=== PATIENT | female | born 1950 | race Caucasian/White ===

== ENCOUNTER 2017-08-01 10:48 | Outpatient (CLI) | payer MEDICARE | END 2017-08-01 10:49 | disposition home or self-care (01) | PROVIDERS: ATTEND Family Medicine | DX: I69.191 Dysphagia following nontraumatic intracerebral hemorrhage (principal); R13.10 Dysphagia, unspecified | CPT/HCPCS: G8996-GN-CJ; G8997-GN-CI; G8998-GN-CJ ==

== ENCOUNTER 2017-08-17 06:13 | Observation (INO) | payer MEDICARE ==
[2017-08-17 06:37] LABS: #Basophils 0.1 thou/uL (0.0-0.2); #Eosinphils 0.2 thou/uL (0.0-0.7); #Monocytes 1.6 thou/uL (0.11-0.59); #Neutrophils 9.9 thou/uL (1.40-6.50); %Basophils 0.4 % (0.0-1.0); %Eosinophils 1.1 % (0.0-10.0); %Lymphocytes 25.5 % (21.0-51.0); Hemoglobin 10.6 g/dL (12.0-16.0); Mean Corpuscular HGB CONC 32.4 g/dL (32.0-36.0); Mean Corpuscular Volume 89.6 fl (81.0-99.0); Mean Platelet Volume 8.3 fL (7.4-10.4); Platelet Count 252 thou/uL (130-400); RBC Distribution Width 13.5 % (11.5-14.5); Red Blood Cell (RBC) Count 3.65 mill/uL (4.20-5.40); White Blood Cell (WBC) Count 15.6 thou/uL (4.8-10.8)
[2017-08-17] MEDS ORDERED: Pantoprazole 40 MG VIAL ONE (06:52)
[2017-08-17] MEDS ORDERED: Morphine 4 MG/ML VIAL ONE ×2 (06:52→07:32)
[2017-08-17] MEDS ORDERED: Ondansetron ODT 4 MG TAB ONE (06:52)
[2017-08-17 07:22] LABS: CKMB 1.2 ng/mL (0-6.6); Troponin I Less than 0.010 ng/mL (< 0.028)
[2017-08-17] MEDS ORDERED: Piperacillin/Tazobactam 3.375 GM VIAL ONE (07:49)
[2017-08-17 08:36] LABS: ALT (SGPT) 28 U/L (8-55); AST (SGOT) 35 U/L (5-34); Albumin 3.9 g/dL (3.4-4.8); Alkaline Phosphatase 115 U/L (40-150); Anion Gap 17 mmol/L (10-20); BUN (Urea Nitrogen) 20 mg/dL (9.8-20.1); Bilirubin, Total 0.4 mg/dL (0.2-1.2); Calc. Creatinine Clearance 0 mL/min (70-130); Calcium 9.1 mg/dL (7.8-10.44); Carbon Dioxide 21 mmol/L (23-31); Chloride 104 mmol/L (98-107); Estimated GFR-MDRD 42; Glucose 97 mg/dL (80-115); Lipase 14 U/L (8-78); Potassium 4.5 mmol/L (3.5-5.1); Protein, Total 6.9 g/dL (6.0-8.3); Sodium 137 mmol/L (136-145)
[2017-08-17] MEDS ORDERED: Fentanyl 100 MCG/2 ML VIAL ONE ×2 (09:09→13:19)
[2017-08-17 09:59] LABS: Bilirubin Negative (Negative); Blood, Urine Negative (Negative); Clarity CLEAR (Clear); Glucose, Urine (Dipstick) Negative (Negative); Leukocyte Negative (Negative); Nitrite Negative (Negative); Protein, Urine (Dipstick) Negative (Neg-Trace); Specific Gravity, Urine 1.017 (1.002-1.036); Urobilinogen 0.2 mg/dL (0.2-1.0)
[2017-08-17] MEDS ORDERED: Ibuprofen 200 MG TAB ONE (11:12)
--- NOTE | 2017-08-17 12:16 | CT ---
CT OF ABDOMEN AND PELVIS: Date: 08-17-17 Comparison: None. History: Abdominal pain with nausea, right upper quadrant pain. Technique: Serial axial CT imaging at 5 mm intervals from lung bases through pubic symphysis with IV and oral contrast. Coronal reformatted imaging obtained. FINDINGS: There are reticular nodular densities within the imaged superior aspect of the right lower lobe with peripheral areas of consolidative change noted within the right lower lobe and small volume right ple ural fluid. No free intraperitoneal air or fluid. Post-operative hardware is noted within the proximal right femu r. There is mild diffuse intrahepatic biliary dilatation and the common bile duct is dilated, measuring up to 1 cm. However, the patient is status post cholecystectomy. No focal liver lesion. Splenic granu marija are present. There is mild diffuse pancreatic ductal dilatation. Adrenal glands are unremarkable as is the right k idney. The left kidney is markedly atrophic and contains a nonobstructing lower pole stone measuring in the 4-5 mm range. Uterus appears surgically absent. There is no evidence for bowel inflammatory change or bowel obstruc tion. Appendix is not discretely visualized but no right lower quadrant inflammatory change is seen to sugg est the presence of appendicitis. There are scattered atherosclerotic calcifications of the abdominal aorta and its branches. No abdomi nal or pelvic lymphadenopathy. Review of the osseous structures demonstrates diffuse osteopenia. No a cute osseous abnormality is seen. IMPRESSION: 1. Increased density in the right lung base may signify infectious pneumonitis/aspiration. 2. No evidence for free intraperitoneal air or small bowel obstruction. 3. Intra and extrahepatic biliary prominence. This could be related to prior cholecystectomy. Correla tion with LFTs advised to exclude the possibility of a biliary obstructive process. 4. Atrophic left kidney. POS: [facility]
--- NOTE | 2017-08-17 14:14 | ULT ---
ULTRASOUND OF GALLBLADDER RIGHT UPPER QUADRANT: Date: 08/17/17 HISTORY: Pain. COMPARISON: CT same date. TECHNIQUE: Real-time Beltran scale and color Doppler evaluation of the right upper quadrant of the abdomen performe d with spectral analysis. FINDINGS: There is prior cholecystectomy. Visualized portion of the pancreas is unremarkable. Moderate intrahep atic biliary dilatation. Portal vein is patent with antegrade flow. Right kidney measures 9.2 x 4.5 x 4.2 cm. IMPRESSION: 1. Intrahepatic and extrahepatic biliary dilatation. This may be sequelae of distal obstructing proc ess. No choledocholithiasis is seen on this examination. 2. Prior cholecystectomy. POS: [facility]
[2017-08-17] MEDS ORDERED: ISOVUE-370 76%-LOCM 1 ML ONE (14:21)
[2017-08-17] MEDS ORDERED: Iopamidol 370 76% 50 ML VIAL FS ONE (14:21)
[2017-08-17 15:52] VITALS: BMI 19.1
[2017-08-17] MEDS ORDERED: cloNIDine 0.1 MG TAB PO PRN (16:30)
[2017-08-17] MEDS ORDERED: Lidocaine 5% Patch TD ONE (16:35)
--- NOTE | 2017-08-17 16:55 | ULT ---
BILATERAL LOWER EXTREMITY VENOUS DOPPLER WITH SPECTRAL ANALYSIS AND COLOR-FLOW EVALUATION: 08/17/2017 HISTORY: Elevated D-dimer. Possible DVT. FINDINGS: Beltran-scale, color-flow, Doppler evaluation, and spectral analysis of the bilateral lower extremity ve nous structures is performed with 2D imaging. The bilateral lower extremity common femoral, superfic ial femoral, popliteal, posterior tibial, most proximal greater saphenous, and profunda femoral veins are imaged. There is normal lumen compressibility, flow, and augmentation in the visualized deep venous structure s of the bilateral lower extremities. IMPRESSION: No evidence of a deep venous thrombosis involving the visualized deep venous structures of the bilate ral lower extremities. POS: [facility]
[2017-08-17] MEDS: Dextrose 5 % And 0.9 % NaCl 1,000 ML IV SCH (17:08)
--- NOTE | 2017-08-17 17:54 | HP ---
CHIEF COMPLAINT: Abdominal pain. HISTORY OF PRESENT ILLNESS: The patient is a very pleasant 67-year-old female with past medical hist ory of a recent stroke about 5 weeks ago, hypothyroidism, and chronic kidney disease who presented to the hospital from the rehab center with complaints of right-sided abdominal pain. The patient state d that she had some nausea, but no vomiting. The patient also states that she was able to tolerate h er meals well. Denies any diarrhea. Denies any fevers or chills. 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 Patient then underwent an abdominal ultr asound which indicated intrahepatic and extrahepatic biliary dilation with no distal obstructing proc ess. No choledocholithiasis also seen. PAST MEDICAL HISTORY: 1. Recent CVA with right-sided weakness. 2. Hypothyroidism. 3. Chronic kidney disease. 4. Hyponatremia. PAST SURGICAL HISTORY: She had a cholecystectomy, section, history of hysterectomy and righ t femur. She had open reduction and internal fixation of the left olecranon fracture. FAMILY HISTORY: Significant for father for heart disease and CML, and brother for lymphoma. MEDICATIONS: As the followin. She takes Artificial Tears #1 applied to both eyes b.i.d. 2. Aspirin 81 mg daily. 3. Baclofen 1 every 6 hours as needed for leg spasms. 4. Buspirone 30 mg twice a day for anxiety and depression. 5. Clonidine 0.1 mg every 6 hours for blood pressure as needed. 6. DuoNebs. 7. Dexmethylphenidate 5 mg take 1 twice a day. 8. Fluoxetine 20 mg once daily. 9. lamotrigine 100 mg p.o. daily. 8. Levothyroxine 25 mcg daily. 9. Megace 10 mL daily. 10. Melatonin at bedtime. 11. Pantoprazole 1 p.o. daily. 12. Seroquel 200 mg 1 at bedtime. 13. Simethicone 1 daily. 14. Tramadol 50 mg q.6 hours p.r.n. REVIEW OF SYSTEMS: All negative except for the ones mentioned above in the HPI. The following compl ete review of systems was negative, unless otherwise mentioned in the HPI or below: Constitutional: Weight loss or gain, ability to conduct usual activities. Skin: Rash, itching. Eyes: Double vision, pain. ENT/Mouth: Nose bleeding, neck stiffness, pain, tenderness. Cardiovascular: Palpitations, dyspnea on exertion, orthopnea. Respiratory: Shortness of breath, wheezing, cough, hemoptysis, fever or night sweats. Gastrointestinal: Poor appetite, abdominal pain, heartburn, nausea, vomiting, constipation, or diarr hea. Genitourinary: Urgency, frequency, dysuria, nocturia. Musculoskeletal: Pain, swelling. Neurologic/Psychiatric: Anxiety, depression. Allergy/Immunologic: Skin rash, bleeding tendency. SOCIAL HISTORY: The patient currently denies any alcohol use, drug use or smoking. PHYSICAL EXAMINATION: VITAL SIGNS: Temperature of 98.4, 66, 16, and 126/74. GENERAL: She is awake, alert, oriented x3. Patient appears to be malnourished and appears much more older than her stated age. CARDIOVASCULAR: S1 and S2 present. No murmurs, rubs or gallops. ABDOMEN: Soft. Bowel sounds are present. She has got severe pain on palpation of epigastric, right upper quadrant, and then right underneath her breast around her rib area. Significant pain on palpa tion. No pain on the back or flank area. No lesions noted either. EXTREMITIES: No edema. Pedal pulses present x2. NEUROLOGIC: She does have weakness on the right side. LABORATORY DATA: Are as the following; she has white count 15.6, hemoglobin of 10.6, hematocrit of 3 2.7, and platelets of 252. Chemistry: Sodium of 137, potassium of 4.5, BUN of 20, creatinine of 1.2 8, AST is 35 one point over cutoff, which is 34, ALT is 28, alkaline phosphatase is 115, her CRP is 1 0.7. Troponin x1 is negative. Her lipase is 14. ASSESSMENT AND PLAN: The patient is a very pleasant 67-year-old female who presents to the hospital with complaints of right upper quadrant pain. 1. Right upper quadrant pain. Etiology could be secondary to musculoskeletal versus hepatic related versus possible zoster versus gastritis. I did not appreciate any lesions or redness noted around h er right breast area or right underneath the rib area. Also, patient's ultrasound did indicate bilat eral intrahepatic and extrahepatic duct dilation; however, no stones were noted and she is status pos t cholecystectomy. Also, her alkaline phosphatase is completely normal. She does have severe pain o n palpation around her right last two ribs. This could be musculoskeletal; however, she denies any f all or any recent injuries. We will apply topical Lidoderm and also give her some pain medication. We will also start her on Protonix IV b.i.d. This could be gastritis. Unlikely to be pancreatitis b ecause lipase is completely normal. I did check lipase and her lipase was mildly elevated at 0.53. This pain does not appear to be pleuritic it since it is reproducible on palpation. 2. Recent stroke. We will continue patient's aspirin and statin. 3. Mildly elevated leukocytosis. We will continue to watch for now. CT abdomen and pelvis did sailaja tito some mild consolidation on the right lower quadrant, which we will just continue to watch. She has no cough, no fevers, no chills. 4. Deep venous thrombosis prophylaxis. We will put the patient on subcu heparin.
[2017-08-17] MEDS: traMADol HCl 50 MG TAB PO PRN (18:32)
[2017-08-17] MEDS: Pantoprazole 40 MG VIAL IVP SCH (20:23)
[2017-08-17] MEDS: busPIRone HCl 5 MG TAB PO SCH (20:24)
[2017-08-17] MEDS: Docusate 100 MG CAP PO SCH (20:24)
[2017-08-17] MEDS ORDERED: Sodium Bicarbonate Tab 325 MG TAB PO SCH (21:00)
[2017-08-17] MEDS ORDERED: Melatonin 3 MG TAB PO SCH (21:00)
[2017-08-17] MEDS ORDERED: Non-Formulary Item 1 EACH (Melatonin [Melatonin] 5 MG) PO SCH (21:00)
[2017-08-17] MEDS ORDERED: Simvastatin 5 MG TAB PO SCH (21:00)
[2017-08-17] MEDS ORDERED: lamoTRIgine 100 MG TAB PO SCH (21:00)
[2017-08-17] MEDS ORDERED: Pravastatin Sodium 20 MG TAB PO SCH (21:00)
[2017-08-18] MEDS: traMADol HCl 50 MG TAB PO PRN ×3 (01:09→15:18)
[2017-08-18] MEDS: Acetaminophen 325 MG TAB PO PRN ×2 (01:10→15:19)
[2017-08-18] MEDS: Dextrose 5 % And 0.9 % NaCl 1,000 ML IV SCH (05:55)
[2017-08-18] MEDS ORDERED: Levothyroxine Sodium 25 MCG TAB PO SCH (06:00)
[2017-08-18 06:28] LABS: #Eosinphils 0.2 thou/uL (0.0-0.7); #Lymphocytes 2.4 thou/uL (1.20-3.40); #Monocytes 0.8 thou/uL (0.11-0.59); #Neutrophils 6.3 thou/uL (1.40-6.50); %Basophils 0.4 % (0.0-1.0); %Lymphocytes 24.5 % (21.0-51.0); %Monocytes 8.4 % (0.0-10.0); %Neutrophils 64.7 % (42.0-75.0); Hemoglobin 9.4 g/dL (12.0-16.0); Mean Corpuscular HGB CONC 32.9 g/dL (32.0-36.0); Mean Corpuscular Hemoglobin 29.8 pg (27.0-31.0); Mean Corpuscular Volume 90.7 fl (81.0-99.0); Mean Platelet Volume 8.6 fL (7.4-10.4); Platelet Count 191 thou/uL (130-400); RBC Distribution Width 13.4 % (11.5-14.5); Red Blood Cell (RBC) Count 3.16 mill/uL (4.20-5.40); White Blood Cell (WBC) Count 9.8 thou/uL (4.8-10.8)
[2017-08-18 06:36] LABS: Anion Gap 9 mmol/L (10-20); BUN (Urea Nitrogen) 17 mg/dL (9.8-20.1); Calc. Creatinine Clearance 38 mL/min (70-130); Calcium 8.9 mg/dL (7.8-10.44); Carbon Dioxide 20 mmol/L (23-31); Chloride 115 mmol/L (98-107); Estimated GFR-MDRD 49; Glucose 99 mg/dL (80-115); Potassium 4.6 mmol/L (3.5-5.1); Sodium 139 mmol/L (136-145)
[2017-08-18 06:37] LABS: ALT (SGPT) 34 U/L (8-55); AST (SGOT) 33 U/L (5-34); Albumin 2.9 g/dL (3.4-4.8); Alkaline Phosphatase 111 U/L (40-150); Bilirubin, Direct 0.3 mg/dL (0.1-0.3); Bilirubin, Total 0.6 mg/dL (0.2-1.2); Protein, Total 5.3 g/dL (6.0-8.3)
[2017-08-18 07:46] LABS: CKMB 2.1 ng/mL (0-6.6); Troponin I 0.013 ng/mL (< 0.028)
[2017-08-18] MEDS: Docusate 100 MG CAP PO SCH (08:51)
[2017-08-18] MEDS: busPIRone HCl 5 MG TAB PO SCH (08:51)
[2017-08-18] MEDS: Pantoprazole 40 MG VIAL IVP SCH (08:52)
[2017-08-18] MEDS ORDERED: Lidocaine 5% Patch TD SCH (09:00)
[2017-08-18] MEDS ORDERED: Aspirin 81 mg Enteric Coated Tablet PO SCH (09:00)
[2017-08-18] MEDS ORDERED: FLUoxetine HCl 20 MG CAP PO SCH (09:00)
--- NOTE | 2017-08-18 13:28 | NM ---
VQ SCAN: HISTORY: Pleuritic chest pain. TECHNIQUE: A ventilation perfusion scan was performed using 10.3 mCi Xenon 133 by inhalation for the ventilation study followed by the intravenous administration of 6 mCi Technetium 99m-MAA for the perfusion scan. FINDINGS: Correlation is made with the chest radiograph of 06/24/17. There is fairly homogeneous tracer distribution on the ventilation exam. Perfusion scan demonstrates a subsegmental wedge-shaped pleural-based defect involving the anterior basal segment of the right l ower lobe. IMPRESSION: Intermediate probability for pulmonary embolism. POS: [facility]
[2017-08-18 16:27] VITALS: BP 127/62; TEMP 98.2
--- NOTE | 2017-08-18 20:51 | DIS ---
DATE OF ADMISSION: 08/17/2017 DATE OF DISCHARGE: 08/18/2017 CHIEF COMPLAINT: Right upper quadrant pain. HOSPITAL COURSE: Patient is a very pleasant 67-year-old female with history of a recent stroke who p resents to the hospital from rehab for complaints of right upper quadrant pain. The patient initiall y was evaluated in the ER, underwent a CT abdomen and pelvis, and a right upper quadrant ultrasound w hich indicated moderate intra/extrahepatic duct dilation. Patient is status post cholecystectomy. T he patient's LFTs were completely normal. Patient did not have a chest x-ray. The patient's CT abdo men and pelvis, lower cuts window of the right lung indicated some scarring on the right lower bases. Patient on physical examination did not have any ulcerations or any blisters that were noted. The patient's troponins also were checked which was negative. EKG, no acute significant changes. She di d have a D-dimer check which was mildly elevated at 0.54. The patient then underwent a VQ scan which indicated an intermediate probability of PE. Patient also had lower extremity ultrasounds which wer e negative for any DVT. I spoke with the patient in details about the findings of the VQ scan and also with a mildly elevated D-dimer for possibility of PE. The patient does have a history of chronic kidney disease and mayur ybarra has a history of chronic kidney disease and unable to do was a CTA to rule out a PE. However, the probability of PE is low. Patient does have scarring in her right lower bases which also indicates t he deficit in subsegmental wedge-shaped pleural base involving the anterior basal segment of the righ t lower lobe. Patient does not have any hypoxia and is not short of breath. The patient does have a right upper quadrant pain. Upon further talking with the patient, the patient states that she has h ad this pain prior to her stroke before in the past and a few times at the rehab center. Most likely , this pain is musculoskeletal related versus irritation of the pleura from this subsegmental defect noted in the bases of the right lower lobe. The patient gave options to the patient in regards to po ssible doing a CTA; however, the risk of worsening kidney injury, also putting on oral anticoagulatio n with the risk of bleeding with not an appropriate diagnosis for PE versus just watching it. Mayur ybarra stated that she would go with no treatment. However, if her symptoms worsen, she was advised to co me into the hospital for further evaluation. I did discuss to the patient that if there was a PE, th ere were risks of hypoxia and also . Patient does understand and the patient feels that most li sai this is just musculoskeletal in nature and also based on clinically on very moderate probability , PE is too unlikely. We will discharge the patient back to her rehabilitation center. PHYSICAL EXAMINATION: VITAL SIGNS: Temperature of 97.6, 68, 115/55, 16, 94% on room air. GENERAL: She is awake, alert, oriented x3. She is not in apparent distress. CARDIOVASCULAR SYSTEM: S1, S2 present. No murmurs, rubs or gallops. ABDOMEN: Soft. Mild tenderness on her right upper quadrant, more around the rib. The patient state s that some better with tramadol x2. She does have right-sided weakness. DISCHARGE MEDICATIONS: Tums 2 tabs p.o. q.6 h. p.r.n., Tramadol 50-100 mg q6 hours p.r.n., simethico ne 80 mg p.o. q.6 hours p.r.n., Megace 40 mg p.o. daily, clonidine 0.1 q.6 hours p.r.n., baclofen 10 mg p.o. q.6 h. p.r.n., aspirin 81 mg daily, levofloxacin 25 mcg p.o. daily, Seroquel 200 mg p.o. at b edtime, lamotrigine 100 mg p.o. at bedtime, buspirone 30 mg p.o. b.i.d., Protonix 40 mg daily, and at orvastatin 40 mg p.o. daily.
[2017-08-18] MEDS ORDERED: Lidocaine Patch Removal 1 EACH TOP SCH (21:00)
== END 2017-08-18 16:20 ==
LOC: ERS 06:13 → 2SW 14:23
PROVIDERS: ADMIT Internal Medicine; ATTEND Internal Medicine
DX: R10.11 Right upper quadrant pain (principal); I69.351 Hemiplegia and hemiparesis following cerebral infarction affecting right dominant side; E03.9 Hypothyroidism, unspecified; N18.9 Chronic kidney disease, unspecified; E87.1 Hypo-osmolality and hyponatremia; D72.829 Elevated white blood cell count, unspecified; Z79.82 Long term (current) use of aspirin; Z79.899 Other long term (current) drug therapy; Z98.891 History of uterine scar from previous surgery; Z90.49 Acquired absence of other specified parts of digestive tract; Z90.710 Acquired absence of both cervix and uterus; Z98.890 Other specified postprocedural states
CPT/HCPCS: 74177; 76705; 78582; 80048; 80053; 80076; 81003; 82553 ×2; 83605; 83690; 84484 ×2; 85025 ×2; 85379; 85652; 86140; 86850; 86900; 86901; 87040; 87086; 87149 ×2; 93005; 93970; 96361 ×3; 96365; 96374; 96375 ×2; 96376 ×2; 97139 ×3; 99285; A9540; A9558; G0378; 36415; A4216; C9113; G8996-GN-CK; G8997-GN-CI; J2270; J2543; J3010; Q0162

== ENCOUNTER 2017-10-02 12:06 | Day surgery (SDC) | payer MEDICARE ==
[2017-10-02] MEDS ORDERED: PROPOFOL 200 MG/20 ML VIAL ONE (15:17)
--- NOTE | 2017-10-02 15:50 | OP ---
DATE OF PROCEDURE: 10/02/2017 PROCEDURE: Esophagogastroduodenoscopy with balloon dilation of proximal esophageal stricture and biopsy. PREPROCEDURE DIAGNOSES: 1. Dysphagia. 2. Weight loss. 3. History of proximal esophageal stricture. 4. Abnormal barium swallow. 5. History of a recent stroke 2 months ago. POSTPROCEDURE DIAGNOSES: 1. Exam to second portion of duodenum. 2. Tight proximal esophageal stricture at 15 cm from the incisors, unable to pass scope through this point without dilating first. 3. s/p 8, 9 then 10 mm TTS balloon dilation of esophageal stricture with good post dilation result and resolution of stricture. 4. Nonobstructing distal Schatzki ring. 5. Small one cm hiatal hernia. 6. Mild gastric antral erythema (striped) without ulcer. 7. Normal duodenum. PROCEDURE IN DETAIL: Written informed consent was obtained. The patient was brought to the endoscopy suite. Total intravenous anesthesia was provided by Dr. Akhil Kelly and associates. The patient was placed in the left lateral decubitus position. A bite block was inserted into the mouth. A Pentax video diagnostic gastroscope was introduced into the oral cavity and the esophagus was carefully intubated. Just distal to the upper esophageal sphincter, a luminal narrowing was encountered and the endoscope could not be passed safely without performing dilation first. Using 10 mm TTS balloon, the stricture was gradually dilated at 3 different stages corresponding to 8 mm, 9 mm and 10 mm. Following the third stage, the stricture appeared to have broken and the endoscope was carefully advanced into the duodenum. Endoscopic findings revealed a 1 cm sliding hiatal hernia. There was no evidence of esophageal ulcer or mass. The stomach from the cardia to the pylorus showed mild striped antral erythema, but no ulcer. The retroflexed exam was normal. The duodenum from the bulb to the second portion was then inspected and appeared grossly normal. Biopsies were obtained in the lower esophagus at 35 cm for histology. Additional biopsies were obtained at 15 cm where the stricture was dilated. A small divot and the mucosa appeared post-biopsy, thus the decision was made to obtain a Gastrografin swallow immediately following completion of the EGD. There was no obvious tear. The stomach and esophagus were decompressed as the endoscope was completely removed from the patient. She was transferred to the day stay surgery area for post-procedure monitoring. There were no immediate complications. RECOMMENDATIONS: 1. Await biopsy results. 2. Ask the patient to contact me in 1 week for biopsy results. 3. Obtain Gastrografin swallow in radiology today before discharge home. ( Post EGD Gastrografin swallow showed no contrast extravasation and esophagus appeared patent without obvious narrowing). 4. Resume diet, but focus on liquids, thick liquids, and soft foods for the next 3 days. 5. Continue pantoprazole daily. 6. Follow up in my office in 2-3 weeks. MTDD
--- NOTE | 2017-10-02 16:03 | RAD ---
ESOPHAGRAM: HISTORY: Esophageal stricture with dilatation. FINDINGS: Single-column contrast evaluation shows normal anatomic appearance of the esophagus without evidence of obstruction or leak. Fluoro-time=0.6 minutes. POS: [facility]
[2017-10-02] MEDS ORDERED: GASTROGRAFIN 30 ML BOT ONE (16:27)
== END 2017-10-02 16:43 | disposition home or self-care (01) ==
LOC: SDC 12:06
PROVIDERS: ATTEND Internal Medicine Gastroenterology
PROC: 0DB58ZX Excision of Esophagus, Via Natural or Artificial Opening Endoscopic, Diagnostic (ICD-10-PCS; principal; 2017-10-02)
PROC: 0DB38ZX Excision of Lower Esophagus, Via Natural or Artificial Opening Endoscopic, Diagnostic (ICD-10-PCS; 2017-10-02)
PROC: 0D758ZZ Dilation of Esophagus, Via Natural or Artificial Opening Endoscopic (ICD-10-PCS; 2017-10-02)
DX: K22.2 Esophageal obstruction (principal); B37.81 Candidal esophagitis; K44.9 Diaphragmatic hernia without obstruction or gangrene; K21.9 Gastro-esophageal reflux disease without esophagitis; K59.00 Constipation, unspecified; Z88.8 Allergy status to other drugs, medicaments and biological substances; Z87.891 Personal history of nicotine dependence; Z79.82 Long term (current) use of aspirin; Z79.899 Other long term (current) drug therapy; Z86.73 Personal history of transient ischemic attack (TIA), and cerebral infarction without residual deficits
CPT/HCPCS: 74220; 88305; 88312; 88313; J2704

== ENCOUNTER 2018-04-27 05:27 | Emergency (ER) | payer MEDICARE, OTHER ==
[2018-04-27] MEDS ORDERED: HYDROcodone/Acetaminophen 10/325 mg Tablet ONE (06:17)
[2018-04-27 06:57] LABS: #Lymphocytes 1.2 thou/uL (1.20-3.40); #Monocytes 0.8 thou/uL (0.11-0.59); #Neutrophils 7.1 thou/uL (1.40-6.50); %Eosinophils 0.5 % (0.0-10.0); %Lymphocytes 12.7 % (21.0-51.0); %Monocytes 8.8 % (0.0-10.0); Hemoglobin 12.4 g/dL (12.0-16.0); Mean Corpuscular HGB CONC 33.5 g/dL (32.0-36.0); Mean Corpuscular Hemoglobin 31.2 pg (27.0-31.0); Mean Corpuscular Volume 93.1 fL (78.0-98.0); Mean Platelet Volume 9.3 fL (7.4-10.4); Platelet Count 126 thou/uL (130-400); Red Blood Cell (RBC) Count 3.97 mill/uL (4.20-5.40); White Blood Cell (WBC) Count 9.1 thou/uL (4.8-10.8)
[2018-04-27 07:24] LABS: ALT (SGPT) 26 U/L (8-55); AST (SGOT) 40 U/L (5-34); Alkaline Phosphatase 114 U/L (40-150); Anion Gap 14 mmol/L (10-20); BUN (Urea Nitrogen) 18 mg/dL (9.8-20.1); Bilirubin, Total 0.4 mg/dL (0.2-1.2); CK (CPK) 64 U/L (29-168); Calc. Creatinine Clearance 0 mL/min (70-130); Calcium 9.3 mg/dL (7.8-10.44); Carbon Dioxide 25 mmol/L (23-31); Chloride 105 mmol/L (98-107); Estimated GFR-MDRD 37; Globulin 2.9 g/dL (2.4-3.5); Glucose 120 mg/dL (80-115); Lipase 12 U/L (8-78); Protein, Total 6.9 g/dL (6.0-8.3); Sodium 140 mmol/L (136-145)
[2018-04-27 09:02] LABS: Bilirubin Negative (Negative); Blood, Urine Negative (Negative); Clarity CLEAR (Clear); Glucose, Urine (Dipstick) Negative (Negative); Leukocyte Negative (Negative); Nitrite Negative (Negative); Protein, Urine (Dipstick) Negative (Neg-Trace); Specific Gravity, Urine 1.011 (1.002-1.036); Urobilinogen 0.2 mg/dL (0.2-1.0); pH, Urine 7.5 (5.0-9.0)
--- NOTE | 2018-04-27 09:38 | RAD ---
RIGHT HIP 2 VIEWS: HISTORY: Trauma. Fall. Pain. COMPARISON: 08/28/2017. FINDINGS: Uncomplicated internal fixation hardware. No acute fracture. There is diffuse bone demineralization . IMPRESSION: No fracture. POS: [facility]
--- NOTE | 2018-04-27 09:56 | RAD ---
LUMBAR SPINE RADIOGRAPHS 3 VIEWS: DATE: 04/27/2018. PROVIDED CLINICAL HISTORY: Trauma. FINDINGS: Five [id number] lumbar-type vertebral bodies are present. Lumbar alignment appears normal. Lum bar vertebral body heights appear preserved. Pedicles appear intact. Cholecystectomy clips right up per quadrant. Vascular calcification. IMPRESSION: No radiographic evidence for an acute osseous abnormality. If there is persistent clinical concern, conservative management and followup imaging advised. POS: [facility]
--- NOTE | 2018-04-27 09:58 | RAD ---
PORTABLE CHEST: Date: 04-27-18 Provided Clinical History: Fall. FINDINGS: Comparison 06-24-17. The cardiac and mediastinal silhouette is within normal limits. No focal consolidation, pleural fluid , or pneumothorax apparent. The bony thorax appears grossly intact. Evaluation for pleural fluid or p neumothorax is limited due to the supine nature of the study. IMPRESSION: As above. POS: [facility]
== END 2018-04-27 09:59 ==
LOC: ERS 05:27
DX: S39.012A Strain of muscle, fascia and tendon of lower back, initial encounter (principal); S70.01XA Contusion of right hip, initial encounter; F41.9 Anxiety disorder, unspecified; F32.9 Major depressive disorder, single episode, unspecified; E03.9 Hypothyroidism, unspecified; Z79.899 Other long term (current) drug therapy; Z79.82 Long term (current) use of aspirin; W19.XXXA Unspecified fall, initial encounter
CPT/HCPCS: 36415; 51701; 71045; 72100; 80053; 81003; 82550; 83690; 83880; 84484; 85025; 93005; A4353

== ENCOUNTER 2018-05-29 08:31 | Inpatient (IN) | payer MEDICARE, MEDICAID ==
[2018-05-29 10:04] LABS: Bilirubin Negative (Negative); Blood, Urine Negative (Negative); Clarity CLEAR (Clear); Glucose, Urine (Dipstick) Negative (Negative); Leukocyte Trace (Negative); Nitrite Negative (Negative); Protein, Urine (Dipstick) Trace mg/dL (Neg-Trace); Specific Gravity, Urine 1.018 (1.002-1.036); pH, Urine 7.5 (5.0-9.0)
[2018-05-29 10:10] LABS: Bacteria/HPF None Seen HPF (None Seen); Hyaline Casts/LPF 0-3 HYALINE CAST LPF (0-3 Hyaline); RBC/HPF 0-3 HPF (0-3); Squamous Epithelial 0-3 HPF (0-3); WBC/HPF 0-3 HPF (0-3)
[2018-05-29 10:34] LABS: #Eosinphils 0.2 thou/uL (0.0-0.7); #Lymphocytes 2.2 thou/uL (1.20-3.40); #Monocytes 1.4 thou/uL (0.11-0.59); #Neutrophils 6.9 thou/uL (1.40-6.50); %Basophils 0.4 % (0.0-1.0); %Eosinophils 1.8 % (0.0-10.0); %Lymphocytes 20.5 % (21.0-51.0); %Monocytes 13.2 % (0.0-10.0); %Neutrophils 64.2 % (42.0-75.0); Hemoglobin 10.8 g/dL (12.0-16.0); Mean Corpuscular Hemoglobin 31.3 pg (27.0-31.0); Mean Corpuscular Volume 94.8 fL (78.0-98.0); Mean Platelet Volume 10.7 fL (7.4-10.4); Platelet Count 174 thou/uL (130-400); RBC Distribution Width 12.8 % (11.5-14.5); Red Blood Cell (RBC) Count 3.46 mill/uL (4.20-5.40); White Blood Cell (WBC) Count 10.7 thou/uL (4.8-10.8)
[2018-05-29] MEDS ORDERED: Acetaminophen 500 MG TAB ONE (10:59)
[2018-05-29 11:01] LABS: ALT (SGPT) 20 U/L (8-55); AST (SGOT) 30 U/L (5-34); Albumin 3.5 g/dL (3.4-4.8); Alkaline Phosphatase 153 U/L (40-150); Anion Gap 18 mmol/L (10-20); BUN (Urea Nitrogen) 32 mg/dL (9.8-20.1); Bilirubin, Total 0.7 mg/dL (0.2-1.2); Calc. Creatinine Clearance 0 mL/min (70-130); Calcium 9.4 mg/dL (7.8-10.44); Carbon Dioxide 18 mmol/L (23-31); Chloride 106 mmol/L (98-107); Estimated GFR-MDRD 34; Globulin 3.2 g/dL (2.4-3.5); Glucose 79 mg/dL (80-115); Potassium 4.5 mmol/L (3.5-5.1); Protein, Total 6.7 g/dL (6.0-8.3); Sodium 137 mmol/L (136-145)
--- NOTE | 2018-05-29 12:16 | CT ---
HEAD CT WITHOUT CONTRAST: Date: 05/29/18 COMPARISON: 12/14/16. HISTORY: Trauma. Patient fell out of bed. Post-traumatic pain. FINDINGS: No parenchymal hemorrhage. No extra-axial hematoma. No midline shift. Basilar cisterns are patent. Br ain volume, age-appropriate. Cortical aragon-white matter differentiation preserved. Ventricles and sul ci are patent and symmetric. Remote lacunar infarcts in the left and right thalamus. Calvarium is intact. Adequate aeration of the sinuses and mastoid air cells. IMPRESSION: No intracranial post-traumatic sequelae. POS: [facility]
--- NOTE | 2018-05-29 12:19 | CT ---
CT OF CERVICAL SPINE PERFORMED WITHOUT CONTRAST ENHANCEMENT: Date: 05/29/18 HISTORY: Fall with neck pain. FINDINGS: Vertebral bodies are normal in height. There is fairly pronounced degenerative disc narrowing at C3-4 , C4-5, C5-6, and C6-7. The facets are in normal alignment. There is some mild right-sided foraminal narrowing at C4-5. There is moderate right-sided foraminal narrowing at C4-5. Also with moderate degr ee of canal narrowing. There is a moderately severe degree of canal narrowing related to posterior os teophytic change. There is a moderate degree of canal stenosis at C5-6 with mild bilateral foraminal narrowing. There is no CT evidence of fracture. Lung apices are clear. IMPRESSION: No CT evidence of fracture of the cervical spine. POS: [facility]
--- NOTE | 2018-05-29 12:21 | CT ---
CT CHEST WITH IV CONTRAST CT ABDOMEN AND PELVIS WITH IV CONTRAST CT THORACIC SPINE NONCONTRAST CT LUMBAR SPINE NONCONTRAST: Date: 05/29/18 HISTORY: Fall. Chest injury. Abdomen injury. Back injury. FINDINGS: No evidence of pneumothorax or mediastinal hematoma. Fairly prominent patchy areas of parenchymal inf iltrate are present within each upper and lower lobe. Atelectasis at the lung bases. Gallbladder is surgically absent with associated distention of the biliary system. There is atrophy o f the left kidney with a 0.4 cm calculus at the inferior pole. No hydronephrosis. Calcification withi n the arterial structures. Urinary bladder is unremarkable. Compression of the T12 superior end plate with loss of height by approximately 10%. Minimal retropuls ion. Other vertebral body heights and alignment are maintained. IMPRESSION: 1. Mildly compressed T12 superior end plate compression fracture. Favored to be acute. 2. No other acute traumatic injury is apparent. POS: [facility]
[2018-05-29] MEDS ORDERED: Ondansetron ODT 4 MG TAB SL PRN (13:00)
[2018-05-29] MEDS ORDERED: Acetaminophen 325 MG TAB PO PRN (13:00)
[2018-05-29] MEDS ORDERED: Ondansetron PF 4 MG/2 ML Vial IVP PRN ×2 (13:00→16:40)
[2018-05-29] MEDS ORDERED: Sodium Chloride 0.9% 1,000 ML IV SCH (13:00)
[2018-05-29] MEDS ORDERED: Sodium Chloride 0.9% 100 ML ONE (13:03)
[2018-05-29] MEDS ORDERED: Piperacillin/Tazobactam 3.375 GM VIAL ONE (13:03)
[2018-05-29] MEDS ORDERED: ISOVUE-370 76%-LOCM 1 ML ONE (14:48)
[2018-05-29] MEDS: HYDROcodone/Acetaminophen 5/325 mg Tablet PO PRN ×2 (17:27→21:23)
[2018-05-29] MEDS: Sodium Chloride 0.9% 1,000 ML IV SCH (17:27)
--- NOTE | 2018-05-29 18:25 | HP ---
CHIEF COMPLAINT: Bilateral hip and leg pain after a fall. HISTORY OF PRESENT ILLNESS: The patient is a 68-year-old female, retirement resident since after lower extremity fracture, who at baseline is wheelchair bound, brought in from the retirement after she was found on the floor. The patient reported that she fell around 2:00 a.m. and has been on the floor. She was seen this morning, hence was brought to the hospital. She complaints of bilateral leg and hip pain as well as mild chest pain. The patient with prior history of CVA as well as dysphagia, for which she has had dilatation of the esophagus, reports chronic cough with little or no sputum production, which has not changed and also denied shortness of breath, fever, nausea, or vomiting. On presentation, the patient was saturating well on room air. Evaluation with CT scan of the chest, abdomen, and pelvis as well as C-spine and thoracic spine showed bilateral infiltrate suggestive of pneumonia, hence the patient was started on antibiotics and admitted for further treatment. The patient reported that her legs gave out when she tried to stand, hence she fell. She denied dysuria, hematuria, nausea, vomiting, headache, change in mental status, abdominal distention, leg swelling, fever, chills, or rigor. She continued to complain about musculoskeletal pain, which she rates about 5 to 7/10 in severity. PAST MEDICAL HISTORY: 1. CVA with gait instability. 2. Hypothyroidism. 3. Chronic kidney disease. 4. Dysphagia. 5. Gastroesophageal reflux disease. 6. Anxiety and depression. PAST SURGICAL HISTORY: 1. Cholecystectomy. 2. section. 3. Hysterectomy. 4. Open reduction and internal fixation of right femur. 5. Open reduction and internal fixation of left olecranon fracture. FAMILY HISTORY: Significant for heart disease and CML in father. Brother also had lymphoma. HOME MEDICATIONS: This include the following; 1. Aspirin 81 mg daily. 2. Baclofen 1 tablet 6 hours as needed for spasm. 3. Buspirone 30 mg twice a day for anxiety and depression. 4. Dexmethylphenidate 5 mg b.i.d. 5. Fluoxetine 40 mg daily. 6. Lamotrigine 100 mg daily. 7. Levothyroxine 25 mcg daily. 8. Melatonin at bedtime. 9. Protonix 1 tablet daily. 10. Seroquel 200 mg at bedtime. 11. Simethicone as needed. 12. Tramadol 50 mg every 6 hours p.r.n. ALLERGIES: THE PATIENT REPORTS INTOLERANCE TO SEPTRA. SOCIAL HISTORY: The patient currently lives in a retirement since her recent CVA. She denied alcohol, recreational drug use or smoking. REVIEW OF SYSTEMS: Twelve-point review of system performed was negative, other than pertinent positives and negatives included in the history of present illness. PHYSICAL EXAMINATION: VITAL SIGNS: On presentation to the emergency room, blood pressure was 95/56 with pulse 71, respiratory rate 18, temperature 99.1, and SpO2 of 93% on room air. GENERAL: Elderly female, in no obvious distress. Afebrile, anicteric, acyanotic. HEENT: Normocephalic, atraumatic. Pupils are equal and reactive to light. Oral mucosa is moist. NECK: Supple, nontender with good range of motion. CARDIOVASCULAR: Regular rhythm and rate with normal sounds 1 and 2. RESPIRATORY: Fair air entry bilateral with few transmitted sounds. No obvious crackle or rhonchi was appreciated. There was no use of accessory muscles. ABDOMEN: Full, soft, nontender, nondistended with normal bowel sounds. EXTREMITIES: Some atrophy of the thigh noted. The patient, however, is able to move all extremities. There is no edema, erythema, or cyanosis. SKIN: Grossly unremarkable. No rash or ecchymosis noted. NEUROLOGY: Conscious and alert, oriented x3 with appropriate mental status. Cranial nerves II through XII are intact. Power is about 4 bilaterally. PSYCHIATRIC: The patient is anxious. DIAGNOSTIC DATA: CBC showed WBC count of 10.7, hemoglobin of 10.8, and platelet of 174. CMP showed sodium 137, potassium 4.5, chloride 106, BUN 32, creatinine 1.5, glucose 79, alkaline phosphatase 153, and total protein 6.7. Of note, creatinine was 1.42 on May 12, 2018 and baseline creatinine ranges from 1.1 to 1.6 in the last 2 years. EKG showed normal sinus rhythm with no ischemic changes. Cardiac enzymes; troponin was less than 0.01, CK is 64, CK-MB is 2.1. Lactic acid is 0.6. CT scan of the abdomen, pelvis as well as chest with contrast showed prominent patchy areas of parenchymal infiltrate within its upper and lower lobes as well as atelectasis of the lung base. No evidence of pneumothorax or mediastinal hematoma was noted. Mild compressed T12 superior end-plate compression fracture noted, this is thought to favor acute pathology. CT scan of the brain showed no acute intracranial pathology. CT scan of the spine showed fairly prolonged degenerative disk narrowing at C3-C4, C4-C5, C5-C6, and C6-C7. However, the facets are normal in alignment, but there was no evidence of fracture of the cervical spine. ASSESSMENT: 1. Bilateral patchy infiltrates involving both lungs. Pneumonia is a concern. Given history of dysphagia, aspiration pneumonia is possible despite no change in chronic cough. There is no overt evidence of sepsis or hypoxia. 2. Fall, mechanical due to weakness of both lower extremities. The patient had chronic lower extremity weakness and is wheelchair bound at baseline. 3. Dysphagia, status post endoscopic dilatation. 4. Anxiety and depression. 5. Chronic kidney disease with possible reversible component. 6. Acute traumatic pain involving both hips. PLAN: 1. We will start antibiotic therapy with Levaquin and Flagyl for possible aspiration pneumonia. The patient also was from a retirement. 2. We will start the patient on IV fluid and monitor renal function. 3. Narcotic analgesics as needed will be provided. We will continue the patient's home medications including aspirin, Protonix, and anti-anxiety and depression medications. 4. DVT prophylaxis with Lovenox. 5. Code status: Full. 6. We will also get Speech Therapy to evaluate the patient's swallowing. 7. We will also get PT and OT to start strengthening exercises to help the patient with transfers. Job ID: [id number]
[2018-05-29] MEDS: lamoTRIgine 100 MG TAB PO SCH (21:21)
[2018-05-29] MEDS: Melatonin 3 MG TAB PO SCH (21:22)
[2018-05-29] MEDS: Simvastatin 20 MG TAB PO SCH (21:23)
[2018-05-30] MEDS: Sodium Chloride 0.9% 1,000 ML IV SCH (06:31)
[2018-05-30] MEDS: HYDROcodone/Acetaminophen 5/325 mg Tablet PO PRN ×5 (06:31→23:33)
[2018-05-30] MEDS: Levothyroxine Sodium 25 MCG TAB PO SCH (06:31)
[2018-05-30 06:52] LABS: Anion Gap 14 mmol/L (10-20); BUN (Urea Nitrogen) 21 mg/dL (9.8-20.1); Calc. Creatinine Clearance 30 mL/min (70-130); Calcium 8.5 mg/dL (7.8-10.44); Carbon Dioxide 18 mmol/L (23-31); Chloride 112 mmol/L (98-107); Estimated GFR-MDRD 35; Glucose 71 mg/dL (80-115); Potassium 4.5 mmol/L (3.5-5.1); Sodium 139 mmol/L (136-145)
[2018-05-30 08:26] LABS: #Eosinphils 0.2 thou/uL (0.0-0.7); #Lymphocytes 1.8 thou/uL (1.20-3.40); #Monocytes 1.1 thou/uL (0.11-0.59); #Neutrophils 5.4 thou/uL (1.40-6.50); %Basophils 0.5 % (0.0-1.0); %Eosinophils 2.8 % (0.0-10.0); %Lymphocytes 21.1 % (21.0-51.0); %Monocytes 12.7 % (0.0-10.0); %Neutrophils 62.9 % (42.0-75.0); Hemoglobin 9.8 g/dL (12.0-16.0); Mean Corpuscular HGB CONC 32.1 g/dL (32.0-36.0); Mean Corpuscular Hemoglobin 31.7 pg (27.0-31.0); Mean Corpuscular Volume 98.8 fL (78.0-98.0); Mean Platelet Volume 10.5 fL (7.4-10.4); Platelet Count 157 thou/uL (130-400); RBC Distribution Width 12.7 % (11.5-14.5); White Blood Cell (WBC) Count 8.6 thou/uL (4.8-10.8)
[2018-05-30] MEDS: Aspirin 81 mg Enteric Coated Tablet PO SCH (09:10)
[2018-05-30] MEDS: Enoxaparin Sodium 30 MG/0.3 ML SYRINGE SC SCH (09:10)
[2018-05-30] MEDS: FLUoxetine HCl 20 MG CAP PO SCH (09:10)
--- NOTE | 2018-05-30 09:57 | PDOC.PN ---
- Subjective Encounter Start Date: 05/30/18 Encounter Start Time: 09:26 Subjective: Complaining of pleuritic chest pain worse with coughing. Denied fever. -: Getting some relief with analgesic. - Objective Resuscitation Status - Order Detail: 05/29/18 16:31 Resuscitation Status Routine Resuscitation Status: FULL: Full Resuscitation MAR Reviewed: Yes Vital Signs & Weight: Vital Signs (12 hours) Temp Pulse Resp BP Pulse Ox 05/30/18 09:08 98.5 F 70 18 105/54 L 96 05/30/18 04:00 98.7 F 74 20 94/53 L 93 L 05/30/18 00:00 98.5 F 75 20 121/61 93 L Weight Weight 112 lb 8 oz Result Diagrams: 05/30/18 07:52 05/30/18 05:45 Phys Exam - Physical Examination HEENT: PERRLA, moist MMs Neck: no JVD, supple, full ROM fair air entry with scattered rhonchi bilaterally Cardiovascular: RRR, no rub Gastrointestinal: soft, non-tender, no distention, positive bowel sounds Musculoskeletal: no edema, pulses present Neurological: non-focal, moves all 4 limbs Dx/Plan - Plan Continue levaquin and flagyl -: Add mucinex and albuterol inhalation -: Substitute NS with LR due to hypercloremia -: Start Incetive spirometry -: Continue analgesic as needed. awaiting PT/speech * .
[2018-05-30] MEDS: metroNIDAZOLE 500 MG TAB PO SCH ×3 (10:38→21:12)
[2018-05-30] MEDS: Lactated Ringer's 1,000 ML IV SCH ×2 (10:39→23:35)
[2018-05-30] MEDS: Albuterol Sulfate 1.25 MG/3 ML NEB NEB SCH ×2 (15:02→18:54)
[2018-05-30] MEDS: Simvastatin 20 MG TAB PO SCH (21:11)
[2018-05-30] MEDS: guaiFENesin ER 600 MG TAB PO SCH (21:12)
[2018-05-30] MEDS: Melatonin 3 MG TAB PO SCH (21:12)
[2018-05-30] MEDS: lamoTRIgine 100 MG TAB PO SCH (21:12)
[2018-05-31] MEDS: Albuterol Sulfate 1.25 MG/3 ML NEB NEB SCH ×4 (01:00→18:50)
[2018-05-31] MEDS: HYDROcodone/Acetaminophen 5/325 mg Tablet PO PRN ×3 (03:33→21:03)
[2018-05-31] MEDS: Levothyroxine Sodium 25 MCG TAB PO SCH (05:12)
[2018-05-31] MEDS ORDERED: Levofloxacin 750 mg/D5W 500 MG in Premix Bag 1 BAG IVPB SCH (08:06)
[2018-05-31] MEDS: Enoxaparin Sodium 30 MG/0.3 ML SYRINGE SC SCH (08:37)
[2018-05-31] MEDS: guaiFENesin ER 600 MG TAB PO SCH ×2 (08:37→21:04)
[2018-05-31] MEDS: FLUoxetine HCl 20 MG CAP PO SCH (08:37)
[2018-05-31] MEDS: metroNIDAZOLE 500 MG TAB PO SCH (08:37)
[2018-05-31] MEDS: Aspirin 81 mg Enteric Coated Tablet PO SCH (08:37)
[2018-05-31 09:10] LABS: #Eosinphils 0.2 thou/uL (0.0-0.7); #Lymphocytes 1.3 thou/uL (1.20-3.40); #Monocytes 1.2 thou/uL (0.11-0.59); #Neutrophils 11.3 thou/uL (1.40-6.50); %Basophils 0.2 % (0.0-1.0); %Eosinophils 1.5 % (0.0-10.0); %Monocytes 8.5 % (0.0-10.0); %Neutrophils 80.8 % (42.0-75.0); Mean Corpuscular HGB CONC 31.7 g/dL (32.0-36.0); Mean Corpuscular Hemoglobin 30.6 pg (27.0-31.0); Mean Corpuscular Volume 96.4 fL (78.0-98.0); Mean Platelet Volume 11.3 fL (7.4-10.4); Platelet Count 143 thou/uL (130-400); RBC Distribution Width 12.9 % (11.5-14.5); Red Blood Cell (RBC) Count 3.25 mill/uL (4.20-5.40); White Blood Cell (WBC) Count 13.9 thou/uL (4.8-10.8)
--- NOTE | 2018-05-31 09:10 | RAD ---
CHEST 1 VIEW: Date: 05/31/18 HISTORY: Aspiration. History of recent fall. COMPARISON: CT examination that was performed 05/29/18. FINDINGS: Heart size is borderline to slightly enlarged. There are patchy parenchymal lung changes with changes within the left upper lobe and both bases and right mid lung field. These changes are not improved and may be slightly increased as compared to the prior examination. IMPRESSION: Patchy bilateral parenchymal lung changes. This could be on the basis of aspiration given the history . Other possibilities would include some type of pulmonary contusion. The changes in the bases are pr obably largely related to atelectasis but may be becoming more confluent and may be more of a develop ing pneumonic type process. Follow-up chest films would be recommended. POS: SHYLA
[2018-05-31] MEDS: Cefepime 1 GM in Sodium Chloride 0.9% 100 ML IVPB SCH ×2 (09:38→21:04)
[2018-05-31 09:44] LABS: ALT (SGPT) 17 U/L (8-55); AST (SGOT) 39 U/L (5-34); Albumin 2.9 g/dL (3.4-4.8); Alkaline Phosphatase 143 U/L (40-150); Anion Gap 21 mmol/L (10-20); BUN (Urea Nitrogen) 20 mg/dL (9.8-20.1); Bilirubin, Total 0.5 mg/dL (0.2-1.2); Calc. Creatinine Clearance 33 mL/min (70-130); Carbon Dioxide 12 mmol/L (23-31); Chloride 111 mmol/L (98-107); Estimated GFR-MDRD 39; Glucose 69 mg/dL (80-115); Potassium 5.5 mmol/L (3.5-5.1); Protein, Total 5.9 g/dL (6.0-8.3); Sodium 138 mmol/L (136-145)
[2018-05-31] MEDS ORDERED: VANCOMYCIN IVPB PRN (10:14)
--- NOTE | 2018-05-31 10:29 | PDOC.PN ---
- Subjective Encounter Start Date: 05/31/18 Encounter Start Time: 07:10 pt had vomiting last night and seems like she had aspirated, has cough, has dyspnea, no fever has back pain - Objective Resuscitation Status - Order Detail: 05/29/18 16:31 Resuscitation Status Routine Resuscitation Status: FULL: Full Resuscitation MAR Reviewed: Yes Vital Signs & Weight: Vital Signs (12 hours) Temp Pulse Resp BP Pulse Ox 05/31/18 03:22 98.7 F 78 16 105/54 L 92 L Weight Weight 112 lb 8 oz I&O: 05/30/18 05/31/18 06/01/18 06:59 06:59 06:59 Intake Total 1290 Balance 1290 Result Diagrams: 05/31/18 08:39 05/31/18 08:39 Radiology Reviewed by me: Yes (chest xray reviewed) EKG Reviewed by me: Yes (nsr) Phys Exam - Physical Examination Constitutional: NAD HEENT: PERRLA, moist MMs, sclera anicteric Neck: no JVD, supple bilateral coarse sound+ Cardiovascular: RRR, no significant murmur, no rub Gastrointestinal: soft, non-tender, no distention, positive bowel sounds Musculoskeletal: no edema, pulses present Neurological: non-focal, normal sensation Lymphatic: no nodes Psychiatric: normal affect Skin: no rash, normal turgor Dx/Plan (1) Aspiration pneumonia Code(s): J69.0 - PNEUMONITIS DUE TO INHALATION OF FOOD AND VOMIT Status: Acute (2) Compression fracture of T12 vertebra Code(s): S22.080A - WEDGE COMPRESSION FRACTURE OF T11-T12 VERTEBRA, INIT Status: Acute (3) Acute traumatic pain Code(s): G89.11 - ACUTE PAIN DUE TO TRAUMA Status: Acute (4) Dysphagia Code(s): R13.10 - DYSPHAGIA, UNSPECIFIED Status: Chronic (5) Fall Code(s): W19.XXXA - UNSPECIFIED FALL, INITIAL ENCOUNTER Status: Acute Qualifiers: Encounter type: subsequent encounter Qualified Code(s): W19.XXXD - Unspecified fall, subsequent encounter (6) Hyperkalemia Code(s): E87.5 - HYPERKALEMIA Status: Acute (7) Metabolic acidosis Code(s): E87.2 - ACIDOSIS Status: Acute (8) Anemia, normocytic normochromic Code(s): D64.9 - ANEMIA, UNSPECIFIED Status: Chronic (9) Anxiety and depression Code(s): F41.9 - ANXIETY DISORDER, UNSPECIFIED; F32.9 - MAJOR DEPRESSIVE DISORDER, SINGLE EPISODE, UNSPECIFIED Status: Chronic (10) CKD (chronic kidney disease) stage 3, GFR 30-59 ml/min Code(s): N18.3 - CHRONIC KIDNEY DISEASE, STAGE 3 (MODERATE) Status: Chronic (11) GERD (gastroesophageal reflux disease) Code(s): K21.9 - GASTRO-ESOPHAGEAL REFLUX DISEASE WITHOUT ESOPHAGITIS Status: Chronic (12) Hypothyroidism Code(s): E03.9 - HYPOTHYROIDISM, UNSPECIFIED Status: Chronic - Plan cont current plan of care, continue antibiotics, PT/OT * start cefepime, levaquin and vancomycin * keep NPO for now and reevaluate by speech * duoneb q 6 hourly * start dex with 1/2 ns with sodium bicarbonate at 75 ml per hour * repeat labs tomorrow * morphin for her pain * medication reviewed as below * symptomatic treatment. Review of Systems - Review of Systems Eyes: negative: Pain, Vision Change, Conjunctivae Inflammation, Eyelid Inflammation, Redness, Other ENT: negative: Ear Pain, Ear Discharge, Nose Pain, Nose Discharge, Nose Congestion, Mouth Pain, Mouth Swelling, Throat Pain, Throat Swelling, Other Respiratory: Cough, Shortness of Breath, SOB with Excertion. negative: Dry, Hemoptysis, Pleuritic Pain, Sputum, Wheezing Cardiovascular: negative: chest pain, palpitations, orthopnea, paroxysmal nocturnal dyspnea, edema, light headedness, other Gastrointestinal: negative: Nausea, Vomiting, Abdominal Pain, Diarrhea, Constipation, Melena, Hematochezia, Other Genitourinary: negative: Dysuria, Frequency, Incontinence, Hematuria, Retention , Other Musculoskeletal: Back Pain. negative: Neck Pain, Shoulder Pain, Arm Pain, Hand Pain, Leg Pain, Foot Pain, Other Skin: negative: Rash, Lesions, Jeffy, Bruising, Other - Medications/Allergies Allergies/Adverse Reactions: Allergies Allergy/AdvReac Type Severity Reaction Status Date / Time sulfamethoxazole Allergy Verified 05/29/18 19:50 [From Bactrim] trimethoprim [From Bactrim] Allergy Verified 05/29/18 19:50 Medications: Current Medications Hydrocodone Bitart/Acetaminophen (Brethren 5/325) 1 tab PO Q4H PRN PRN Reason: Pain Last Admin: 05/31/18 08:35 Dose: 1 tab Albuterol Sulfate (Albuterol Sulfate) 1.25 mg NEB [id number] [facility] Last Admin: 05/31/18 07:03 Dose: Not Given Albuterol/Ipratropium (Duoneb) 3 ml NEB [id number] [facility]1983 Aspirin (Ecotrin) 81 mg PO DAILY [facility] Last Admin: 05/31/18 08:37 Dose: Not Given Enoxaparin Sodium (Lovenox) 30 mg SC 0900 [facility] Last Admin: 05/31/18 08:37 Dose: 30 mg Fluoxetine HCl (Prozac) 40 mg PO DAILY [facility] Last Admin: 05/31/18 08:37 Dose: Not Given Guaifenesin (Mucinex) 600 mg PO Q12HR [facility] Last Admin: 05/31/18 08:37 Dose: Not Given Cefepime HCl 1 gm/ Sodium (Chloride) 100 mls @ 200 mls/hr IVPB Q12HR [facility] Last Admin: 05/31/18 09:38 Dose: 100 mls Levofloxacin 500 mg/ Device 100 mls @ 100 mls/hr IVPB Q24HR [facility] Last Admin: 05/31/18 09:38 Dose: 100 mls Vancomycin HCl 1 gm/ Device 200 mls @ 200 mls/hr IVPB WILLCALL [facility] Vancomycin HCl 750 mg/ Sodium (Chloride) 250 mls @ 250 mls/hr IVPB WILLCALL [facility] Vancomycin HCl 500 mg/ Sodium (Chloride) 100 mls @ 100 mls/hr IVPB [facility]CALL OSORIO Vancomycin HCl 250 mg/ Sodium (Chloride) 100 mls @ 100 mls/hr IVPB WILLCALL OSORIO Vancomycin HCl 750 mg/ Sodium (Chloride) 250 mls @ 250 mls/hr IVPB NOW [facility] Stop: 05/31/18 13:00 Dextrose/Sodium Chloride (D5 1/2 Ns) 1,000 mls @ 75 mls/hr IV .[id number] [facility] Lamotrigine (Lamictal) 100 mg PO [facility] Last Admin: 05/30/18 21:12 Dose: 100 mg Levothyroxine Sodium (Synthroid) 25 mcg PO 0600 [facility] Last Admin: 05/31/18 05:12 Dose: 25 mcg Melatonin (Melatonin) 6 mg PO [facility] Last Admin: 05/30/18 21:12 Dose: 6 mg Miscellaneous Medication (Pharmacy To Dose) 1 each IVPB ONE PRN PRN Reason: Pharmacy to dose Miscellaneous Medication (Vancomycin Sliding Scale) 1 each FS ASDIR [facility] Morphine Sulfate (Morphine) 2 mg SLOW IVP Q4H PRN PRN Reason: Pain Hold Vancomycin For (Level >20) 0 each FS .AT DIALYSIS [facility]1983 Ondansetron HCl (Zofran) 4 mg IVP Q6H PRN PRN Reason: Nausea/Vomiting Last Admin: 05/30/18 19:20 Dose: 4 mg Pantoprazole Sodium (Protonix) 40 mg PO DAILY [facility] Last Admin: 05/31/18 08:37 Dose: Not Given Quetiapine Fumarate (Seroquel) 200 mg PO [facility] Last Admin: 05/30/18 21:12 Dose: 200 mg Simvastatin (Zocor) 10 mg PO [facility] Last Admin: 05/30/18 21:11 Dose: 10 mg Sodium Chloride (Flush - Normal Saline) 10 ml IVF Q12HR [facility] Last Admin: 05/31/18 08:39 Dose: Not Given Sodium Chloride (Flush - Normal Saline) 10 ml IVF PRN PRN PRN Reason: Saline Flush
[2018-05-31] MEDS ORDERED: HOLD VANCOMYCIN FOR LEVEL >20 FS SCH (10:30)
[2018-05-31] MEDS ORDERED: Vancomycin HCl 1 GM in Premix Bag 1 BAG IVPB SCH (10:30)
[2018-05-31] MEDS ORDERED: Vancomycin Sliding Scale 1 EACH FS SCH (10:30)
[2018-05-31] MEDS ORDERED: Vancomycin HCl 500 MG in Sodium Chloride 0.9% 100 ML IVPB SCH (10:30)
[2018-05-31] MEDS ORDERED: Vancomycin HCl 750 MG in Sodium Chloride 0.9% 250 ML 250 ML IVPB SCH ×2 (10:30→11:00)
[2018-05-31] MEDS ORDERED: Vancomycin HCl 250 MG in Sodium Chloride 0.9% 100 ML IVPB SCH (10:30)
[2018-05-31] MEDS: Morphine 2 MG/ML SYRINGE SLOW IVP PRN ×3 (11:34→19:04)
[2018-05-31] MEDS ORDERED: Pantoprazole 40 MG VIAL IVP SCH (16:00)
[2018-05-31] MEDS: lamoTRIgine 100 MG TAB PO SCH (21:04)
[2018-05-31] MEDS: Melatonin 3 MG TAB PO SCH (21:05)
[2018-05-31] MEDS: Simvastatin 20 MG TAB PO SCH (21:05)
[2018-06-01] MEDS: Albuterol Sulfate 1.25 MG/3 ML NEB NEB SCH ×3 (01:01→08:09)
[2018-06-01] MEDS: HYDROcodone/Acetaminophen 5/325 mg Tablet PO PRN ×5 (01:21→20:36)
[2018-06-01] MEDS: Morphine 2 MG/ML SYRINGE SLOW IVP PRN ×2 (01:22→05:21)
[2018-06-01 06:21] LABS: #Basophils 0.1 thou/uL (0.0-0.2); #Eosinphils 0.2 thou/uL (0.0-0.7); #Lymphocytes 1.7 thou/uL (1.20-3.40); #Monocytes 1.2 thou/uL (0.11-0.59); %Basophils 0.5 % (0.0-1.0); %Eosinophils 1.3 % (0.0-10.0); %Lymphocytes 12.2 % (21.0-51.0); %Monocytes 8.6 % (0.0-10.0); %Neutrophils 77.4 % (42.0-75.0); Hemoglobin 9.4 g/dL (12.0-16.0); Mean Corpuscular HGB CONC 32.9 g/dL (32.0-36.0); Mean Corpuscular Hemoglobin 32.2 pg (27.0-31.0); Mean Platelet Volume 10.7 fL (7.4-10.4); Platelet Count 169 thou/uL (130-400); RBC Distribution Width 12.9 % (11.5-14.5); Red Blood Cell (RBC) Count 2.91 mill/uL (4.20-5.40); White Blood Cell (WBC) Count 14.2 thou/uL (4.8-10.8)
[2018-06-01 06:41] LABS: ALT (SGPT) 12 U/L (8-55); AST (SGOT) 25 U/L (5-34); Albumin 2.8 g/dL (3.4-4.8); Alkaline Phosphatase 136 U/L (40-150); Anion Gap 13 mmol/L (10-20); BUN (Urea Nitrogen) 19 mg/dL (9.8-20.1); Bilirubin, Total 0.5 mg/dL (0.2-1.2); Calc. Creatinine Clearance 32 mL/min (70-130); Calcium 8.8 mg/dL (7.8-10.44); Carbon Dioxide 21 mmol/L (23-31); Chloride 110 mmol/L (98-107); Estimated GFR-MDRD 39; Globulin 2.6 g/dL (2.4-3.5); Glucose 113 mg/dL (80-115); Potassium 3.9 mmol/L (3.5-5.1); Protein, Total 5.4 g/dL (6.0-8.3); Sodium 140 mmol/L (136-145)
[2018-06-01] MEDS: Levothyroxine Sodium 25 MCG TAB PO SCH (06:49)
[2018-06-01] MEDS ORDERED: Sodium Chloride 0.9% 1,000 ML IV SCH (07:15)
--- NOTE | 2018-06-01 09:15 | RAD ---
PORTABLE UPRIGHT FRONTAL CHEST RADIOGRAPH: Date: 06-01-18 Comparison: 05-31-18 History: Dyspnea. FINDINGS: Heart and mediastinal contours are stable. There is no pneumothorax seen. No large volume pleural eff usion is seen, but bilateral small pleural effusions are suspected. There is extensive interstitial o pacity throughout both lungs, left greater than right, with scattered areas of airspace disease. Inte rstitial opacity has worsened significantly bilaterally and air space disease is new. IMPRESSION: Interstitial and alveolar opacity as detailed above. Findings suggest pulmonary edema. Infectious pne umonitis cannot be excluded. Follow up to resolution advised. POS: SHYLA
[2018-06-01] MEDS: Aspirin 81 mg Enteric Coated Tablet PO SCH (10:09)
[2018-06-01] MEDS: FLUoxetine HCl 20 MG CAP PO SCH (10:11)
[2018-06-01] MEDS: Enoxaparin Sodium 30 MG/0.3 ML SYRINGE SC SCH (10:11)
[2018-06-01] MEDS: Pantoprazole 40 MG VIAL IVP SCH (10:11)
[2018-06-01] MEDS: guaiFENesin ER 600 MG TAB PO SCH ×2 (10:11→20:35)
[2018-06-01] MEDS: Vancomycin HCl 750 MG in Sodium Chloride 0.9% 250 ML 250 ML IVPB SCH ×2 (10:12→11:27)
[2018-06-01] MEDS: Cefepime 1 GM in Sodium Chloride 0.9% 100 ML IVPB SCH ×2 (10:13→20:35)
[2018-06-01 10:21] LABS: Lactic Acid 1.4 mmol/L (0.5-2.2)
--- NOTE | 2018-06-01 10:45 | CON ---
DATE OF CONSULTATION: HISTORY OF PRESENT ILLNESS: She is a 68-year-old patient from the [place], who presented to the hospital with symptoms of fall, pain in the right hip and left elbow area. She was in [facility]. Initially, when she came to the hospital, she had a CT done of the abdomen and pelvis. Diagnosis of CVA, weakness and renal failure was made. On the course of the last 24 hours, x-ray showed worsening pulmonary infiltrates. She has now been consulted today regarding the pulmonary status. CT of the chest done on 05/29/2018 showed bilateral infiltrates. X-ray taken today shows diffuse bilateral extensive interstitial infiltrates. Comes in with ARDS, CHF. She said she has never smoked. Denies any previous history of TB, pneumonia or bronchial asthma. She has limitation to activity because of her previous CVA. PAST MEDICAL HISTORY: CVA with right-sided weakness, dysphagia, renal failure, and hypothyroidism. PAST SURGICAL HISTORY: Cholecystectomy, hysterectomy, , and right femur surgery. SOCIAL HISTORY: Alcohol, none. Tobacco, none. MEDICATIONS: Medicine from the correction includes long list of medicine including aspirin, Prozac 20, buspirone 30 gabapentin 100, Synthroid 25, Megace 40, Zocor 10, lamotrigine 100, tramadol p.r.n. ALLERGIES: SULFA. SHE HAS SINCE NOW STARTED ON MAXIPIME, LEVAQUIN, AND VANCOMYCIN. CULTURES ARE NEGATIVE. I DO NOT SEE A SPUTUM CULTURE. REVIEW OF SYSTEMS: Otherwise, 10-point negative. PHYSICAL EXAMINATION: VITAL SIGNS: Saturations 88% on 4 L, respiratory rate 14, temperature 98, blood pressure is 109/53. CHEST: Extensive rhonchi and crackles. CARDIAC: Normal S1, S2. No gallops. ABDOMEN: Soft. NEUROLOGIC: She is awake, alert, responsive, moves all 4 extremities. LABORATORY DATA: Albumin is 2.8, creatinine 1.36. White count 14,000 and H and H 9 and 28. Platelet count is normal. ASSESSMENT AND PLAN: Diffuse pulmonary infiltrates, aspiration pneumonia, acute respiratory distress syndrome versus congestive heart failure. I agree with broad-spectrum antibiotics. Echo is being ordered to assess left ventricular function. Otherwise, supportive care, PT if condition gets worse. She is transferred to the ICU. Apparently, she is a full code. Consultation note, 70 minutes, 50% direct patient care. Job ID: [id number]
--- NOTE | 2018-06-01 11:13 | PDOC.PN ---
- Subjective Encounter Start Date: 06/01/18 Encounter Start Time: 07:00 pt still in respiratory distress, hypoxic, pt is weak, no fever Patient seen and examined. No overnight events - Objective Resuscitation Status - Order Detail: 05/29/18 16:31 Resuscitation Status Routine Resuscitation Status: FULL: Full Resuscitation MAR Reviewed: Yes Vital Signs & Weight: Vital Signs (12 hours) Temp Pulse Resp BP Pulse Ox 06/01/18 08:09 88 24 H 88 L 06/01/18 08:00 90 L 06/01/18 07:50 98.4 F 83 20 109/53 L 94 L 06/01/18 05:38 84 24 H 90 L 06/01/18 03:36 98.0 F 80 20 105/54 L 92 L 06/01/18 00:00 98.7 F Weight Weight 112 lb 8 oz I&O: 05/31/18 06/01/18 06/02/18 06:59 06:59 06:59 Intake Total 1290 990 Balance 1290 990 Result Diagrams: 06/01/18 06:05 06/01/18 06:05 Radiology Reviewed by me: Yes (chest xray reviwed) EKG Reviewed by me: Yes (sinus tachycardia) Phys Exam - Physical Examination Constitutional: NAD HEENT: PERRLA, sclera anicteric Neck: no JVD, supple bilateral scattered rales Cardiovascular: RRR, no significant murmur, no rub Gastrointestinal: soft, non-tender, no distention, positive bowel sounds Musculoskeletal: no edema, pulses present Neurological: non-focal, normal sensation, moves all 4 limbs Lymphatic: no nodes Psychiatric: normal affect Skin: no rash, normal turgor Dx/Plan (1) Aspiration pneumonia Code(s): J69.0 - PNEUMONITIS DUE TO INHALATION OF FOOD AND VOMIT Status: Acute (2) Compression fracture of T12 vertebra Code(s): S22.080A - WEDGE COMPRESSION FRACTURE OF T11-T12 VERTEBRA, INIT Status: Acute (3) Acute traumatic pain Code(s): G89.11 - ACUTE PAIN DUE TO TRAUMA Status: Acute (4) Dysphagia Code(s): R13.10 - DYSPHAGIA, UNSPECIFIED Status: Chronic (5) Fall Code(s): W19.XXXA - UNSPECIFIED FALL, INITIAL ENCOUNTER Status: Acute Qualifiers: Encounter type: subsequent encounter Qualified Code(s): W19.XXXD - Unspecified fall, subsequent encounter (6) Hyperkalemia Code(s): E87.5 - HYPERKALEMIA Status: Acute (7) Metabolic acidosis Code(s): E87.2 - ACIDOSIS Status: Acute (8) Anemia, normocytic normochromic Code(s): D64.9 - ANEMIA, UNSPECIFIED Status: Chronic (9) Anxiety and depression Code(s): F41.9 - ANXIETY DISORDER, UNSPECIFIED; F32.9 - MAJOR DEPRESSIVE DISORDER, SINGLE EPISODE, UNSPECIFIED Status: Chronic (10) CKD (chronic kidney disease) stage 3, GFR 30-59 ml/min Code(s): N18.3 - CHRONIC KIDNEY DISEASE, STAGE 3 (MODERATE) Status: Chronic (11) GERD (gastroesophageal reflux disease) Code(s): K21.9 - GASTRO-ESOPHAGEAL REFLUX DISEASE WITHOUT ESOPHAGITIS Status: Chronic (12) Hypothyroidism Code(s): E03.9 - HYPOTHYROIDISM, UNSPECIFIED Status: Chronic (13) Acute respiratory failure with hypoxia Code(s): J96.01 - ACUTE RESPIRATORY FAILURE WITH HYPOXIA Status: Acute (14) Elevated brain natriuretic peptide (BNP) level Code(s): R79.89 - OTHER SPECIFIED ABNORMAL FINDINGS OF BLOOD CHEMISTRY Status : Acute - Plan cont current plan of care, continue antibiotics, respiratory therapy * repeat chest xray done * pulmonary will be consulted * BNP is high, so echo will be done * continue empiric cefepime, vancomycin, levaquin * solumderol added * DC IVF * start diet with risk as per pt request * medication reviewed as below * symptomatic treatment * will give one dose of lasix * repeat labs tomorrow. * duoneb q 4 hrly Review of Systems - Review of Systems Constitutional: weakness, malaise. negative: fever, chills, sweats, other Respiratory: Cough, Shortness of Breath, SOB with Excertion. negative: Dry, Hemoptysis, Pleuritic Pain, Sputum, Wheezing Cardiovascular: negative: chest pain, palpitations, orthopnea, paroxysmal nocturnal dyspnea, edema, light headedness, other Gastrointestinal: negative: Nausea, Vomiting, Abdominal Pain, Diarrhea, Constipation, Melena, Hematochezia, Other Genitourinary: negative: Dysuria, Frequency, Incontinence, Hematuria, Retention , Other Musculoskeletal: negative: Neck Pain, Shoulder Pain, Arm Pain, Back Pain, Hand Pain, Leg Pain, Foot Pain, Other Skin: negative: Rash, Lesions, Jeffy, Bruising, Other - Medications/Allergies Allergies/Adverse Reactions: Allergies Allergy/AdvReac Type Severity Reaction Status Date / Time sulfamethoxazole Allergy Verified 05/29/18 19:50 [From Bactrim] trimethoprim [From Bactrim] Allergy Verified 05/29/18 19:50 Medications: Current Medications Hydrocodone Bitart/Acetaminophen ([place] 5/325) 1 tab PO Q4H PRN PRN Reason: Pain Last Admin: 06/01/18 10:10 Dose: 1 tab Albuterol Sulfate (Albuterol Sulfate) 1.25 mg NEB [id number] [facility] Last Admin: 06/01/18 08:09 Dose: 1.25 mg Albuterol/Ipratropium (Duoneb) 3 ml NEB [id number] OSORIO Last Admin: 06/01/18 05:38 Dose: 3 ml Albuterol/Ipratropium (Duoneb) 3 ml NEB [id number] PRN PRN Reason: SOB &/or Wheezing Aspirin (Ecotrin) 81 mg PO DAILY [facility] Last Admin: 06/01/18 10:09 Dose: 81 mg Enoxaparin Sodium (Lovenox) 30 mg SC 0900 [facility] Last Admin: 06/01/18 10:11 Dose: 30 mg Fluoxetine HCl (Prozac) 40 mg PO DAILY [facility] Last Admin: 06/01/18 10:11 Dose: 40 mg Furosemide (Lasix) 40 mg SLOW IVP ONE [facility] Guaifenesin (Mucinex) 600 mg PO Q12HR [facility] Last Admin: 06/01/18 10:11 Dose: 600 mg Cefepime HCl 1 gm/ Sodium (Chloride) 100 mls @ 200 mls/hr IVPB Q12HR [facility] Last Admin: 06/01/18 10:13 Dose: 100 mls Levofloxacin 500 mg/ Device 100 mls @ 100 mls/hr IVPB Q24HR [facility] Last Admin: 06/01/18 10:31 Dose: 100 mls Vancomycin HCl 750 mg/ Sodium (Chloride) 250 mls @ 250 mls/hr IVPB 1100 [facility] Sodium Chloride (Normal Saline 0.9%) 1,000 mls @ 100 mls/hr IV .Q10H [facility] Last Admin: 06/01/18 07:30 Dose: 1,000 mls Lamotrigine (Lamictal) 100 mg PO HS [facility] Last Admin: 05/31/18 21:04 Dose: Not Given Levothyroxine Sodium (Synthroid) 25 mcg PO 0600 [facility] Last Admin: 06/01/18 06:49 Dose: Not Given Melatonin (Melatonin) 6 mg PO HS [facility] Last Admin: 05/31/18 21:05 Dose: Not Given Methylprednisolone Sodium Succinate (Solu-Medrol) 40 mg IVP Q8HR [facility] Miscellaneous Medication (Pharmacy To Dose) 1 each IVPB PRN PRN PRN Reason: Pharmacy to dose Morphine Sulfate (Morphine) 2 mg SLOW IVP Q4H PRN PRN Reason: Pain Last Admin: 06/01/18 05:21 Dose: 2 mg Ondansetron HCl (Zofran) 4 mg IVP Q6H PRN PRN Reason: Nausea/Vomiting Last Admin: 05/30/18 19:20 Dose: 4 mg Pantoprazole Sodium (Protonix) 40 mg IVP DAILY [facility] Last Admin: 06/01/18 10:11 Dose: 40 mg Quetiapine Fumarate (Seroquel) 200 mg PO [facility] Last Admin: 05/31/18 21:03 Dose: 200 mg Simvastatin (Zocor) 10 mg PO [facility] Last Admin: 05/31/18 21:05 Dose: Not Given Sodium Chloride (Flush - Normal Saline) 10 ml IVF Q12HR [facility] Last Admin: 06/01/18 10:26 Dose: Not Given Sodium Chloride (Flush - Normal Saline) 10 ml IVF PRN PRN PRN Reason: Saline Flush Sodium Chloride (Flush - Normal Saline) 10 ml FS DAILY [facility] Last Admin: 06/01/18 10:26 Dose: Not Given
[2018-06-01] MEDS ORDERED: Furosemide 40 MG/4 ML VIAL SLOW IVP SCH ×2 (11:15→17:00)
[2018-06-01] MEDS ORDERED: methylPREDNISolone Sod Succ 40 MG VIAL IVP SCH (14:00)
[2018-06-01] MEDS: methylPREDNISolone Sod Succ 40 MG VIAL IVP SCH ×2 (14:36→21:11)
[2018-06-01 17:12] LABS: #Eosinphils 0.1 thou/uL (0.0-0.7); #Lymphocytes 1.3 thou/uL (1.20-3.40); #Neutrophils 15.2 thou/uL (1.40-6.50); %Basophils 0.2 % (0.0-1.0); %Eosinophils 0.7 % (0.0-10.0); %Lymphocytes 7.5 % (21.0-51.0); %Monocytes 5.7 % (0.0-10.0); %Neutrophils 85.9 % (42.0-75.0); Hemoglobin 10.1 g/dL (12.0-16.0); Mean Corpuscular HGB CONC 31.7 g/dL (32.0-36.0); Mean Corpuscular Hemoglobin 31.4 pg (27.0-31.0); Mean Corpuscular Volume 99.1 fL (78.0-98.0); Mean Platelet Volume 10.7 fL (7.4-10.4); Platelet Count 157 thou/uL (130-400); RBC Distribution Width 13.1 % (11.5-14.5); Red Blood Cell (RBC) Count 3.22 mill/uL (4.20-5.40); White Blood Cell (WBC) Count 17.7 thou/uL (4.8-10.8)
[2018-06-01 17:13] LABS: Actual Bicarbonate (HCO3a) 18.9 mEq/L (22-28); Analyzer IN Cardio OR; Base Excess (BEa) -3.5 mEq/L (-2.0 to +3.0); Calcium, Ionized 1.18 mmol/L (1.12-1.30); Carboxyhemoglobin (COHb) 0.6 gm% (0.0-3.0); Hemoglobin (Hb) 10.4 g/dL (12.0-16.0); O2 Tension (PaO2) 43.2 mmHg (> 80.0); Potassium - ABG Lab 3.99 mmol/L (3.70-5.30); pH, Arterial 7.48 (7.35-7.45)
[2018-06-01 17:14] LABS: Puncture Site RR
[2018-06-01] MEDS ORDERED: Furosemide 40 MG/4 ML VIAL ONE (17:23)
[2018-06-01 17:30] LABS: Anion Gap 17 mmol/L (10-20); BUN (Urea Nitrogen) 21 mg/dL (9.8-20.1); Calc. Creatinine Clearance 31 mL/min (70-130); Calcium 8.5 mg/dL (7.8-10.44); Carbon Dioxide 19 mmol/L (23-31); Chloride 109 mmol/L (98-107); Estimated GFR-MDRD 37; Glucose 94 mg/dL (80-115); Sodium 141 mmol/L (136-145)
[2018-06-01] MEDS: lamoTRIgine 100 MG TAB PO SCH (20:35)
[2018-06-01] MEDS: Simvastatin 20 MG TAB PO SCH (20:36)
[2018-06-01] MEDS: Melatonin 3 MG TAB PO SCH (20:38)
[2018-06-02] MEDS: methylPREDNISolone Sod Succ 40 MG VIAL IVP SCH ×3 (05:15→21:18)
[2018-06-02] MEDS: Levothyroxine Sodium 25 MCG TAB PO SCH (05:15)
[2018-06-02 05:55] LABS: Hemoglobin 9.8 g/dL (12.0-16.0); Mean Corpuscular HGB CONC 32.1 g/dL (32.0-36.0); Mean Corpuscular Hemoglobin 31.8 pg (27.0-31.0); Mean Corpuscular Volume 98.9 fL (78.0-98.0); Mean Platelet Volume 10.8 fL (7.4-10.4); Platelet Count 173 thou/uL (130-400); RBC Distribution Width 13.1 % (11.5-14.5); Red Blood Cell (RBC) Count 3.09 mill/uL (4.20-5.40); White Blood Cell (WBC) Count 21.3 thou/uL (4.8-10.8)
[2018-06-02 06:14] LABS: Anion Gap 17 mmol/L (10-20); BUN (Urea Nitrogen) 31 mg/dL (9.8-20.1); Calc. Creatinine Clearance 30 mL/min (70-130); Calcium 9.2 mg/dL (7.8-10.44); Carbon Dioxide 22 mmol/L (23-31); Chloride 107 mmol/L (98-107); Estimated GFR-MDRD 32; Glucose 138 mg/dL (80-115); Potassium 3.7 mmol/L (3.5-5.1); Sodium 142 mmol/L (136-145)
[2018-06-02 06:37] LABS: Band 11 % (5-11); Lymphocytes 5 % (21-51); MDiff Complete? YES; Monocytes 1 % (0-10); Neutrophil 83 % (42-75)
--- NOTE | 2018-06-02 08:35 | RAD ---
SINGLE VIEW CHEST: HISTORY: ARDS. COMPARISON: 04/27/2018 FINDINGS: A single view of the chest shows a normal sized cardiomediastinal silhouette. Increased interstitial markings are present. There are superimposed air space opacities in the left lower lobe and at the inferior aspect of the right upper lobe. No pleural effusion is seen. IMPRESSION: Multifocal infiltrates. POS: [facility]
[2018-06-02] MEDS ORDERED: Furosemide 20 MG/2 ML VIAL SLOW IVP SCH (08:45)
[2018-06-02] MEDS: Cefepime 1 GM in Sodium Chloride 0.9% 100 ML IVPB SCH ×2 (08:54→21:17)
[2018-06-02] MEDS: guaiFENesin ER 600 MG TAB PO SCH ×2 (08:54→21:17)
[2018-06-02] MEDS: Enoxaparin Sodium 30 MG/0.3 ML SYRINGE SC SCH (08:54)
[2018-06-02] MEDS: FLUoxetine HCl 20 MG CAP PO SCH (08:54)
[2018-06-02] MEDS: Saccharomyces boulardii 250 MG CAP PO SCH (08:55)
[2018-06-02] MEDS: Aspirin 81 mg Enteric Coated Tablet PO SCH (08:55)
[2018-06-02] MEDS: Pantoprazole 40 MG VIAL IVP SCH (09:02)
[2018-06-02] MEDS: HYDROcodone/Acetaminophen 5/325 mg Tablet PO PRN ×3 (09:02→19:56)
--- NOTE | 2018-06-02 09:05 | PRG ---
DATE OF SERVICE: 06/02/2018 SUBJECTIVE: Tasneem Anguiano this morning awake, alert, and responsive. She is better. She was transferred yesterday with respiratory failure. X-ray showed diffuse pulmonary infiltrates. This morning, it is somewhat less pronounced. OBJECTIVE: VITAL SIGNS: Her sats are better on 50% Ventimask at 95%, respiratory rate 21, temperature 97, and blood pressure 106/58. CHEST: With bilateral crackles. CARDIAC: Normal S1 and S2. No gallops. ABDOMEN: No masses. LABORATORY DATA: White count is 21,000. IMPRESSION: 1. Respiratory failure. 2. Acute respiratory distress syndrome. 3. Congestive heart failure. 4. Pneumonia. 5. Dysphagia. 6. Cachexia. 7. She has azotemia. PLAN: Continue broad-spectrum antibiotics. Await results of the echo. We will follow in the ICU. One-half hour of critical time. Job ID: [id number]
[2018-06-02 10:57] LABS: Vancomycin, Trough 13.9 ug/mL
[2018-06-02] MEDS: Vancomycin HCl 750 MG in Sodium Chloride 0.9% 250 ML 250 ML IVPB SCH (11:20)
--- NOTE | 2018-06-02 11:46 | PDOC.PN ---
- Subjective Encounter Start Date: 06/02/18 Encounter Start Time: 09:30 Patient seen and examined. No new complaints. No overnight events pt is feeling better - Objective Resuscitation Status - Order Detail: 05/29/18 16:31 Resuscitation Status Routine Resuscitation Status: FULL: Full Resuscitation MAR Reviewed: Yes Vital Signs & Weight: Vital Signs (12 hours) Temp Pulse Resp Pulse Ox 06/02/18 08:00 97.9 F 06/02/18 07:47 96 06/02/18 07:29 75 21 H 95 06/02/18 07:21 93 L 06/02/18 07:00 97.9 F 06/02/18 04:00 98.2 F 06/02/18 00:00 98.3 F Weight Weight 121 lb 14.65 oz Most Recent Monitor Data Heart Rate from ECG 90 NIBP 112/60 NIBP BP-Mean 77 Respiration from ECG 20 SpO2 95 I&O: 06/01/18 06/02/18 06/03/18 06:59 06:59 06:59 Intake Total 990 226 170 Output Total 1350 430 Balance 990 -1124 -260 Result Diagrams: 06/02/18 05:16 06/02/18 05:16 Additional Labs: Accuchecks 06/01/18 16:49 POC Glucose 96 Radiology Reviewed by me: Yes (chest xray reviewed) EKG Reviewed by me: Yes (nsr) Phys Exam - Physical Examination Constitutional: NAD HEENT: PERRLA, moist MMs, sclera anicteric Neck: no JVD, supple Respiratory: no wheezing, no rhonchi scattered rales Cardiovascular: RRR, no significant murmur, no rub Gastrointestinal: soft, non-tender, no distention, positive bowel sounds Musculoskeletal: no edema, pulses present Neurological: non-focal, normal sensation Lymphatic: no nodes Psychiatric: normal affect Skin: no rash, normal turgor Dx/Plan (1) Aspiration pneumonia Code(s): J69.0 - PNEUMONITIS DUE TO INHALATION OF FOOD AND VOMIT Status: Acute (2) Compression fracture of T12 vertebra Code(s): S22.080A - WEDGE COMPRESSION FRACTURE OF T11-T12 VERTEBRA, INIT Status: Acute (3) Acute traumatic pain Code(s): G89.11 - ACUTE PAIN DUE TO TRAUMA Status: Acute (4) Dysphagia Code(s): R13.10 - DYSPHAGIA, UNSPECIFIED Status: Chronic (5) Fall Code(s): W19.XXXA - UNSPECIFIED FALL, INITIAL ENCOUNTER Status: Acute Qualifiers: Encounter type: subsequent encounter Qualified Code(s): W19.XXXD - Unspecified fall, subsequent encounter (6) Hyperkalemia Code(s): E87.5 - HYPERKALEMIA Status: Acute (7) Metabolic acidosis Code(s): E87.2 - ACIDOSIS Status: Acute (8) Anemia, normocytic normochromic Code(s): D64.9 - ANEMIA, UNSPECIFIED Status: Chronic (9) Anxiety and depression Code(s): F41.9 - ANXIETY DISORDER, UNSPECIFIED; F32.9 - MAJOR DEPRESSIVE DISORDER, SINGLE EPISODE, UNSPECIFIED Status: Chronic (10) CKD (chronic kidney disease) stage 3, GFR 30-59 ml/min Code(s): N18.3 - CHRONIC KIDNEY DISEASE, STAGE 3 (MODERATE) Status: Chronic (11) GERD (gastroesophageal reflux disease) Code(s): K21.9 - GASTRO-ESOPHAGEAL REFLUX DISEASE WITHOUT ESOPHAGITIS Status: Chronic (12) Hypothyroidism Code(s): E03.9 - HYPOTHYROIDISM, UNSPECIFIED Status: Chronic (13) Acute respiratory failure with hypoxia Code(s): J96.01 - ACUTE RESPIRATORY FAILURE WITH HYPOXIA Status: Acute (14) Elevated brain natriuretic peptide (BNP) level Code(s): R79.89 - OTHER SPECIFIED ABNORMAL FINDINGS OF BLOOD CHEMISTRY Status : Acute - Plan cont current plan of care, continue antibiotics, respiratory therapy * give lasix * echo pending * overall doing well * will consider transfer later today * continue empiric antibiotics * medication reviewed as below * symptomatic treatment. Review of Systems - Review of Systems ENT: negative: Ear Pain, Ear Discharge, Nose Pain, Nose Discharge, Nose Congestion, Mouth Pain, Mouth Swelling, Throat Pain, Throat Swelling, Other Respiratory: Cough, Shortness of Breath. negative: Dry, Hemoptysis, SOB with Excertion, Pleuritic Pain, Sputum, Wheezing Cardiovascular: negative: chest pain, palpitations, orthopnea, paroxysmal nocturnal dyspnea, edema, light headedness, other Gastrointestinal: negative: Nausea, Vomiting, Abdominal Pain, Diarrhea, Constipation, Melena, Hematochezia, Other Genitourinary: negative: Dysuria, Frequency, Incontinence, Hematuria, Retention , Other Musculoskeletal: negative: Neck Pain, Shoulder Pain, Arm Pain, Back Pain, Hand Pain, Leg Pain, Foot Pain, Other Skin: negative: Rash, Lesions, Jeffy, Bruising, Other - Medications/Allergies Allergies/Adverse Reactions: Allergies Allergy/AdvReac Type Severity Reaction Status Date / Time sulfamethoxazole Allergy Verified 05/29/18 19:50 [From Bactrim] trimethoprim [From Bactrim] Allergy Verified 05/29/18 19:50 Medications: Current Medications Hydrocodone Bitart/Acetaminophen ([place] 5/325) 1 tab PO Q4H PRN PRN Reason: Pain Last Admin: 06/02/18 09:02 Dose: 1 tab Albuterol/Ipratropium (Duoneb) 3 ml NEB [id number] Last Admin: 06/02/18 07:29 Dose: 3 ml Albuterol/Ipratropium (Duoneb) 3 ml NEB [id number] PRN PRN Reason: SOB &/or Wheezing Aspirin (Ecotrin) 81 mg PO DAILY [facility] Last Admin: 06/02/18 08:55 Dose: 81 mg Enoxaparin Sodium (Lovenox) 30 mg SC 0900 [facility] Last Admin: 06/02/18 08:54 Dose: 30 mg Fluoxetine HCl (Prozac) 40 mg PO DAILY [facility] Last Admin: 06/02/18 08:54 Dose: 40 mg Guaifenesin (Mucinex) 600 mg PO Q12HR [facility] Last Admin: 06/02/18 08:54 Dose: 600 mg Cefepime HCl 1 gm/ Sodium (Chloride) 100 mls @ 200 mls/hr IVPB Q12HR [facility] Last Admin: 06/02/18 08:54 Dose: 100 mls Levofloxacin 500 mg/ Device 100 mls @ 100 mls/hr IVPB Q24HR [facility] Last Admin: 06/02/18 09:02 Dose: 100 mls Vancomycin HCl 750 mg/ Sodium (Chloride) 250 mls @ 250 mls/hr IVPB 1100 [facility] Last Admin: 06/02/18 11:20 Dose: 250 mls Lamotrigine (Lamictal) 100 mg PO HS [facility] Last Admin: 06/01/18 20:35 Dose: 100 mg Levothyroxine Sodium (Synthroid) 25 mcg PO 0600 [facility] Last Admin: 06/02/18 05:15 Dose: 25 mcg Melatonin (Melatonin) 6 mg PO HS [facility] Last Admin: 06/01/18 20:38 Dose: 6 mg Methylprednisolone Sodium Succinate (Solu-Medrol) 40 mg IVP Q8HR [facility] Last Admin: 06/02/18 05:15 Dose: 40 mg Miscellaneous Medication (Pharmacy To Dose) 1 each IVPB PRN PRN PRN Reason: Pharmacy to dose Ondansetron HCl (Zofran) 4 mg IVP Q6H PRN PRN Reason: Nausea/Vomiting Last Admin: 05/30/18 19:20 Dose: 4 mg Pantoprazole Sodium (Protonix) 40 mg IVP DAILY [facility] Last Admin: 06/02/18 09:02 Dose: 40 mg Saccharomyces Boulardii (Florastor) 250 mg PO DAILY [facility] Last Admin: 06/02/18 08:55 Dose: 250 mg Simvastatin (Zocor) 10 mg PO HS [facility] Last Admin: 06/01/18 20:36 Dose: 10 mg Sodium Chloride (Flush - Normal Saline) 10 ml IVF Q12HR [facility] Last Admin: 06/02/18 08:56 Dose: 10 ml Sodium Chloride (Flush - Normal Saline) 10 ml IVF PRN PRN PRN Reason: Saline Flush Sodium Chloride (Flush - Normal Saline) 10 ml FS DAILY [facility] Last Admin: 06/02/18 08:56 Dose: Not Given
[2018-06-02] MEDS: ALPRAZolam 0.25 MG TAB PO PRN (15:08)
[2018-06-02] MEDS: Melatonin 3 MG TAB PO SCH (21:17)
[2018-06-02] MEDS: lamoTRIgine 100 MG TAB PO SCH (21:17)
[2018-06-02] MEDS: Simvastatin 20 MG TAB PO SCH (21:17)
[2018-06-03] MEDS: Levothyroxine Sodium 25 MCG TAB PO SCH (06:02)
[2018-06-03] MEDS: methylPREDNISolone Sod Succ 40 MG VIAL IVP SCH (06:02)
[2018-06-03 08:44] LABS: #Lymphocytes 1.5 thou/uL (1.20-3.40); #Monocytes 0.5 thou/uL (0.11-0.59); #Neutrophils 20.2 thou/uL (1.40-6.50); %Basophils 0.2 % (0.0-1.0); %Eosinophils 0.1 % (0.0-10.0); %Lymphocytes 6.9 % (21.0-51.0); %Monocytes 2.1 % (0.0-10.0); %Neutrophils 90.8 % (42.0-75.0); Hemoglobin 9.8 g/dL (12.0-16.0); Mean Corpuscular HGB CONC 30.4 g/dL (32.0-36.0); Mean Corpuscular Volume 98.5 fL (78.0-98.0); Mean Platelet Volume 10.3 fL (7.4-10.4); Platelet Count 219 thou/uL (130-400); RBC Distribution Width 13.2 % (11.5-14.5); Red Blood Cell (RBC) Count 3.26 mill/uL (4.20-5.40); White Blood Cell (WBC) Count 22.3 thou/uL (4.8-10.8)
[2018-06-03] MEDS: Enoxaparin Sodium 30 MG/0.3 ML SYRINGE SC SCH (08:48)
[2018-06-03] MEDS: Pantoprazole 40 MG VIAL IVP SCH (08:49)
[2018-06-03] MEDS: HYDROcodone/Acetaminophen 5/325 mg Tablet PO PRN ×3 (08:55→22:11)
[2018-06-03] MEDS: ALPRAZolam 0.25 MG TAB PO PRN ×2 (08:55→22:10)
[2018-06-03] MEDS: Aspirin 81 mg Enteric Coated Tablet PO SCH (09:01)
[2018-06-03] MEDS: guaiFENesin ER 600 MG TAB PO SCH ×2 (09:01→22:11)
[2018-06-03] MEDS: FLUoxetine HCl 20 MG CAP PO SCH (09:01)
[2018-06-03] MEDS: Saccharomyces boulardii 250 MG CAP PO SCH (09:02)
[2018-06-03 09:06] LABS: Anion Gap 15 mmol/L (10-20); BUN (Urea Nitrogen) 46 mg/dL (9.8-20.1); Calc. Creatinine Clearance 30 mL/min (70-130); Calcium 9.2 mg/dL (7.8-10.44); Carbon Dioxide 23 mmol/L (23-31); Chloride 108 mmol/L (98-107); Estimated GFR-MDRD 32; Glucose 184 mg/dL (80-115); Potassium 3.6 mmol/L (3.5-5.1); Sodium 142 mmol/L (136-145)
--- NOTE | 2018-06-03 09:55 | PRG ---
DATE OF SERVICE: 06/03/2018 SUBJECTIVE: This morning, is awake, alert, and responsive, no longer required a BIPAP last night. OBJECTIVE: VITAL SIGNS: Saturations are 96% on 4 L, pulse 90, respiratory rate 20, and blood pressure 120/53. I's and O's have been negative. CHEST: Minimal crackles without any wheezing. CARDIAC: Normal S1, S2. No gallop. ABDOMEN: No masses. LABORATORY DATA: Lab and chest x-ray have been ordered. Results of the echocardiogram show that her systolic function was normal. She had diastolic dysfunction. IMPRESSION: Diastolic dysfunction, acute respiratory distress syndrome, congestive heart failure, pneumonia, aspiration pneumonia, severe deconditioning, and dysphagia. PLAN: She can be transferred out of the ICU. Continue p.o. antibiotics. Neb treatments. Supportive care. Job ID: [id number]
[2018-06-03] MEDS: Cefdinir 300 MG CAP PO SCH ×2 (10:26→22:10)
--- NOTE | 2018-06-03 11:06 | PDOC.PN ---
- Subjective Encounter Start Date: 06/03/18 Encounter Start Time: 10:00 Patient seen and examined. No new complaints. No overnight events - Objective Resuscitation Status - Order Detail: 05/29/18 16:31 Resuscitation Status Routine Resuscitation Status: FULL: Full Resuscitation MAR Reviewed: Yes Vital Signs & Weight: Vital Signs (12 hours) Temp Pulse Resp Pulse Ox 06/03/18 07:51 96 06/03/18 07:41 90 20 95 06/03/18 07:00 97.9 F 06/03/18 04:00 97.6 F 06/03/18 00:00 97.8 F 06/02/18 23:24 72 16 95 Weight Weight 125 lb 14.143 oz Most Recent Monitor Data Heart Rate from ECG 89 NIBP 110/58 NIBP BP-Mean 75 Respiration from ECG 16 SpO2 98 I&O: 06/02/18 06/03/18 06/04/18 06:59 06:59 06:59 Intake Total 226 1818 360 Output Total 1350 1190 110 Balance -1124 628 250 Result Diagrams: 06/03/18 08:32 06/03/18 08:32 EKG Reviewed by me: Yes (nsr) Phys Exam - Physical Examination Constitutional: NAD HEENT: PERRLA, moist MMs, sclera anicteric Neck: no JVD, supple Respiratory: no wheezing, no rales, no rhonchi Cardiovascular: RRR, no significant murmur, no rub Gastrointestinal: soft, non-tender, no distention, positive bowel sounds Musculoskeletal: no edema, pulses present Neurological: non-focal, normal sensation Lymphatic: no nodes Psychiatric: normal affect Skin: no rash, normal turgor Dx/Plan (1) Aspiration pneumonia Code(s): J69.0 - PNEUMONITIS DUE TO INHALATION OF FOOD AND VOMIT Status: Acute (2) Compression fracture of T12 vertebra Code(s): S22.080A - WEDGE COMPRESSION FRACTURE OF T11-T12 VERTEBRA, INIT Status: Acute (3) Acute traumatic pain Code(s): G89.11 - ACUTE PAIN DUE TO TRAUMA Status: Acute (4) Dysphagia Code(s): R13.10 - DYSPHAGIA, UNSPECIFIED Status: Chronic (5) Fall Code(s): W19.XXXA - UNSPECIFIED FALL, INITIAL ENCOUNTER Status: Acute Qualifiers: Encounter type: subsequent encounter Qualified Code(s): W19.XXXD - Unspecified fall, subsequent encounter (6) Hyperkalemia Code(s): E87.5 - HYPERKALEMIA Status: Acute (7) Metabolic acidosis Code(s): E87.2 - ACIDOSIS Status: Acute (8) Anemia, normocytic normochromic Code(s): D64.9 - ANEMIA, UNSPECIFIED Status: Chronic (9) Anxiety and depression Code(s): F41.9 - ANXIETY DISORDER, UNSPECIFIED; F32.9 - MAJOR DEPRESSIVE DISORDER, SINGLE EPISODE, UNSPECIFIED Status: Chronic (10) CKD (chronic kidney disease) stage 3, GFR 30-59 ml/min Code(s): N18.3 - CHRONIC KIDNEY DISEASE, STAGE 3 (MODERATE) Status: Chronic (11) GERD (gastroesophageal reflux disease) Code(s): K21.9 - GASTRO-ESOPHAGEAL REFLUX DISEASE WITHOUT ESOPHAGITIS Status: Chronic (12) Hypothyroidism Code(s): E03.9 - HYPOTHYROIDISM, UNSPECIFIED Status: Chronic (13) Acute respiratory failure with hypoxia Code(s): J96.01 - ACUTE RESPIRATORY FAILURE WITH HYPOXIA Status: Acute (14) Elevated brain natriuretic peptide (BNP) level Code(s): R79.89 - OTHER SPECIFIED ABNORMAL FINDINGS OF BLOOD CHEMISTRY Status : Acute (15) Acute on chronic diastolic ACC/AHA stage C congestive heart failure Code(s): I50.33 - ACUTE ON CHRONIC DIASTOLIC (CONGESTIVE) HEART FAILURE Status : Acute - Plan cont current plan of care, continue antibiotics, PT/OT * change lasix po * agree with po antibiotics omnicef, po prednisone changed today * transfer to tele * monitor oxygen level * PT/OT * medication reviewed as below * symptomatic treatment. Review of Systems - Review of Systems ENT: negative: Ear Pain, Ear Discharge, Nose Pain, Nose Discharge, Nose Congestion, Mouth Pain, Mouth Swelling, Throat Pain, Throat Swelling, Other Respiratory: negative: Cough, Dry, Shortness of Breath, Hemoptysis, SOB with Excertion, Pleuritic Pain, Sputum, Wheezing Cardiovascular: negative: chest pain, palpitations, orthopnea, paroxysmal nocturnal dyspnea, edema, light headedness, other Gastrointestinal: negative: Nausea, Vomiting, Abdominal Pain, Diarrhea, Constipation, Melena, Hematochezia, Other Genitourinary: negative: Dysuria, Frequency, Incontinence, Hematuria, Retention , Other Musculoskeletal: negative: Neck Pain, Shoulder Pain, Arm Pain, Back Pain, Hand Pain, Leg Pain, Foot Pain, Other - Medications/Allergies Allergies/Adverse Reactions: Allergies Allergy/AdvReac Type Severity Reaction Status Date / Time sulfamethoxazole Allergy Verified 05/29/18 19:50 [From Bactrim] trimethoprim [From Bactrim] Allergy Verified 05/29/18 19:50 Medications: Current Medications Hydrocodone Bitart/Acetaminophen ([place] 5/325) 1 tab PO Q4H PRN PRN Reason: Pain Last Admin: 06/03/18 08:55 Dose: 1 tab Albuterol/Ipratropium (Duoneb) 3 ml NEB [id number] OSORIO Last Admin: 06/03/18 07:41 Dose: 3 ml Albuterol/Ipratropium (Duoneb) 3 ml NEB [id number] PRN PRN Reason: SOB &/or Wheezing Alprazolam (Xanax) 0.25 mg PO BID PRN PRN Reason: Anxiety Last Admin: 06/03/18 08:55 Dose: 0.25 mg Aspirin (Ecotrin) 81 mg PO DAILY [facility] Last Admin: 06/03/18 09:01 Dose: 81 mg Cefdinir (Omnicef) 300 mg PO BID [facility] Stop: 06/08/18 09:01 Last Admin: 06/03/18 10:26 Dose: 300 mg Enoxaparin Sodium (Lovenox) 30 mg SC 0900 [facility] Last Admin: 06/03/18 08:48 Dose: 30 mg Fluoxetine HCl (Prozac) 40 mg PO DAILY [facility] Last Admin: 06/03/18 09:01 Dose: 40 mg Guaifenesin (Mucinex) 600 mg PO Q12HR [facility] Last Admin: 06/03/18 09:01 Dose: 600 mg Lamotrigine (Lamictal) 100 mg PO HS [facility] Last Admin: 06/02/18 21:17 Dose: 100 mg Levothyroxine Sodium (Synthroid) 25 mcg PO 0600 [facility] Last Admin: 06/03/18 06:02 Dose: 25 mcg Melatonin (Melatonin) 6 mg PO HS [facility] Last Admin: 06/02/18 21:17 Dose: 6 mg Miscellaneous Medication (Pharmacy To Dose) 1 each IVPB PRN PRN PRN Reason: Pharmacy to dose Ondansetron HCl (Zofran) 4 mg IVP Q6H PRN PRN Reason: Nausea/Vomiting Last Admin: 05/30/18 19:20 Dose: 4 mg Pantoprazole Sodium (Protonix) 40 mg IVP DAILY [facility] Last Admin: 06/03/18 08:49 Dose: 40 mg Prednisone (Prednisone) 20 mg PO [facility] Saccharomyces Boulardii (Florastor) 250 mg PO DAILY [facility] Last Admin: 06/03/18 09:02 Dose: 250 mg Simvastatin (Zocor) 10 mg PO HS [facility] Last Admin: 06/02/18 21:17 Dose: 10 mg Sodium Chloride (Flush - Normal Saline) 10 ml IVF Q12HR [facility] Last Admin: 06/03/18 09:00 Dose: 10 ml Sodium Chloride (Flush - Normal Saline) 10 ml IVF PRN PRN PRN Reason: Saline Flush Sodium Chloride (Flush - Normal Saline) 10 ml FS DAILY [facility] Last Admin: 06/03/18 09:00 Dose: 10 ml
[2018-06-03] MEDS: Furosemide 20 MG TAB PO SCH (14:23)
[2018-06-03] MEDS: Melatonin 3 MG TAB PO SCH (22:03)
[2018-06-03] MEDS: Simvastatin 20 MG TAB PO SCH (22:08)
[2018-06-03] MEDS: lamoTRIgine 100 MG TAB PO SCH (22:15)
[2018-06-04] MEDS: Levothyroxine Sodium 25 MCG TAB PO SCH (06:11)
[2018-06-04 06:59] LABS: #Basophils 0.1 thou/uL (0.0-0.2); #Lymphocytes 2.3 thou/uL (1.20-3.40); #Neutrophils 12.9 thou/uL (1.40-6.50); %Basophils 0.6 % (0.0-1.0); %Eosinophils 0.1 % (0.0-10.0); %Lymphocytes 14.2 % (21.0-51.0); %Monocytes 6.2 % (0.0-10.0); Hemoglobin 9.8 g/dL (12.0-16.0); Mean Corpuscular HGB CONC 32.3 g/dL (32.0-36.0); Mean Corpuscular Hemoglobin 31.6 pg (27.0-31.0); Mean Corpuscular Volume 97.9 fL (78.0-98.0); Mean Platelet Volume 9.9 fL (7.4-10.4); Platelet Count 188 thou/uL (130-400); Red Blood Cell (RBC) Count 3.09 mill/uL (4.20-5.40); White Blood Cell (WBC) Count 16.3 thou/uL (4.8-10.8)
[2018-06-04 07:13] LABS: Anion Gap 14 mmol/L (10-20); BUN (Urea Nitrogen) 47 mg/dL (9.8-20.1); Calc. Creatinine Clearance 33 mL/min (70-130); Calcium 8.6 mg/dL (7.8-10.44); Carbon Dioxide 21 mmol/L (23-31); Chloride 108 mmol/L (98-107); Estimated GFR-MDRD 38; Glucose 133 mg/dL (80-115); Sodium 140 mmol/L (136-145)
[2018-06-04] MEDS ORDERED: Potassium Chloride 20 MEQ TAB PO SCH (07:45)
--- NOTE | 2018-06-04 09:02 | PRG ---
DATE OF SERVICE: SUBJECTIVE: This morning, she is awake, alert, and responsive. She is doing better. OBJECTIVE: VITAL SIGNS: Sats are 95% on 4 L, respiratory rate 18, temperature 97, pulse 83, blood pressure 130/63. CHEST: Minimal crackles without any wheezing. CARDIAC: Normal S1, S2. No gallops. ABDOMEN: No masses. LABORATORY DATA: Creatinine 1.38. White count 48000. Echocardiogram taken several days ago. Finally the poor says that she has got diastolic dysfunction. IMPRESSION: Respiratory failure, acute respiratory distress syndrome, pneumonia, diastolic dysfunction. She is much improved. Continue PT, supportive care, antibiotics. We will follow. Job ID: [id number]
[2018-06-04] MEDS: Furosemide 20 MG TAB PO SCH ×2 (09:30→13:43)
[2018-06-04] MEDS: Aspirin 81 mg Enteric Coated Tablet PO SCH (09:30)
[2018-06-04] MEDS: guaiFENesin ER 600 MG TAB PO SCH ×2 (09:30→20:49)
[2018-06-04] MEDS: Enoxaparin Sodium 30 MG/0.3 ML SYRINGE SC SCH (09:30)
[2018-06-04] MEDS: Cefdinir 300 MG CAP PO SCH ×2 (09:30→20:48)
[2018-06-04] MEDS: FLUoxetine HCl 20 MG CAP PO SCH (09:30)
[2018-06-04] MEDS: predniSONE 20 MG TAB PO SCH (09:30)
[2018-06-04] MEDS: Saccharomyces boulardii 250 MG CAP PO SCH (09:30)
[2018-06-04] MEDS: HYDROcodone/Acetaminophen 5/325 mg Tablet PO PRN ×3 (09:40→18:35)
--- NOTE | 2018-06-04 09:49 | PDOC.PN ---
- Subjective Encounter Start Date: 06/04/18 Encounter Start Time: 09:30 Patient seen and examined. No new complaints. No overnight events - Objective Resuscitation Status - Order Detail: 05/29/18 16:31 Resuscitation Status Routine Resuscitation Status: FULL: Full Resuscitation MAR Reviewed: Yes Vital Signs & Weight: Vital Signs (12 hours) Temp Pulse Resp BP Pulse Ox 06/04/18 07:33 83 18 95 06/04/18 04:16 97.0 F L 87 17 130/63 95 06/04/18 01:20 98.0 F 80 16 121/64 95 06/04/18 00:00 97.8 F 06/03/18 23:13 77 20 Weight Weight 116 lb 4.8 oz Most Recent Monitor Data Heart Rate from ECG 76 NIBP 121/62 NIBP BP-Mean 81 Respiration from ECG 18 SpO2 94 I&O: 06/03/18 06/04/18 06/05/18 06:59 06:59 06:59 Intake Total 1818 1060 Output Total 1190 1090 Balance 628 -30 Result Diagrams: 06/04/18 05:49 06/04/18 05:49 EKG Reviewed by me: Yes Phys Exam - Physical Examination Constitutional: NAD HEENT: PERRLA, moist MMs, sclera anicteric Neck: no JVD, supple Respiratory: no wheezing, no rales, no rhonchi Cardiovascular: RRR, no significant murmur, no rub Gastrointestinal: soft, non-tender, no distention, positive bowel sounds Musculoskeletal: no edema, pulses present Neurological: non-focal, normal sensation Psychiatric: normal affect, A&O x 3 Skin: no rash, normal turgor Dx/Plan (1) Aspiration pneumonia Code(s): J69.0 - PNEUMONITIS DUE TO INHALATION OF FOOD AND VOMIT Status: Acute (2) Compression fracture of T12 vertebra Code(s): S22.080A - WEDGE COMPRESSION FRACTURE OF T11-T12 VERTEBRA, INIT Status: Acute (3) Acute traumatic pain Code(s): G89.11 - ACUTE PAIN DUE TO TRAUMA Status: Acute (4) Dysphagia Code(s): R13.10 - DYSPHAGIA, UNSPECIFIED Status: Chronic (5) Fall Code(s): W19.XXXA - UNSPECIFIED FALL, INITIAL ENCOUNTER Status: Acute Qualifiers: Encounter type: subsequent encounter Qualified Code(s): W19.XXXD - Unspecified fall, subsequent encounter (6) Hyperkalemia Code(s): E87.5 - HYPERKALEMIA Status: Acute (7) Metabolic acidosis Code(s): E87.2 - ACIDOSIS Status: Acute (8) Anemia, normocytic normochromic Code(s): D64.9 - ANEMIA, UNSPECIFIED Status: Chronic (9) Anxiety and depression Code(s): F41.9 - ANXIETY DISORDER, UNSPECIFIED; F32.9 - MAJOR DEPRESSIVE DISORDER, SINGLE EPISODE, UNSPECIFIED Status: Chronic (10) CKD (chronic kidney disease) stage 3, GFR 30-59 ml/min Code(s): N18.3 - CHRONIC KIDNEY DISEASE, STAGE 3 (MODERATE) Status: Chronic (11) GERD (gastroesophageal reflux disease) Code(s): K21.9 - GASTRO-ESOPHAGEAL REFLUX DISEASE WITHOUT ESOPHAGITIS Status: Chronic (12) Hypothyroidism Code(s): E03.9 - HYPOTHYROIDISM, UNSPECIFIED Status: Chronic (13) Acute respiratory failure with hypoxia Code(s): J96.01 - ACUTE RESPIRATORY FAILURE WITH HYPOXIA Status: Acute (14) Elevated brain natriuretic peptide (BNP) level Code(s): R79.89 - OTHER SPECIFIED ABNORMAL FINDINGS OF BLOOD CHEMISTRY Status : Acute (15) Acute on chronic diastolic ACC/AHA stage C congestive heart failure Code(s): I50.33 - ACUTE ON CHRONIC DIASTOLIC (CONGESTIVE) HEART FAILURE Status : Acute - Plan cont current plan of care, continue antibiotics, PT/OT, health and social care teacher, respiratory therapy * continue omnicef, prednisone, lasix * pt wanted to change her jail, will ask case operator to assist * medication reviewed as below * symptomatic treatment. * wean off oxygen as tolerated Review of Systems - Review of Systems ENT: negative: Ear Pain, Ear Discharge, Nose Pain, Nose Discharge, Nose Congestion, Mouth Pain, Mouth Swelling, Throat Pain, Throat Swelling, Other Respiratory: negative: Cough, Dry, Shortness of Breath, Hemoptysis, SOB with Excertion, Pleuritic Pain, Sputum, Wheezing Cardiovascular: negative: chest pain, palpitations, orthopnea, paroxysmal nocturnal dyspnea, edema, light headedness, other Gastrointestinal: negative: Nausea, Vomiting, Abdominal Pain, Diarrhea, Constipation, Melena, Hematochezia, Other Genitourinary: negative: Dysuria, Frequency, Incontinence, Hematuria, Retention , Other Musculoskeletal: negative: Neck Pain, Shoulder Pain, Arm Pain, Back Pain, Hand Pain, Leg Pain, Foot Pain, Other - Medications/Allergies Allergies/Adverse Reactions: Allergies Allergy/AdvReac Type Severity Reaction Status Date / Time sulfamethoxazole Allergy Verified 05/29/18 19:50 [From Bactrim] trimethoprim [From Bactrim] Allergy Verified 05/29/18 19:50 Medications: Current Medications Hydrocodone Bitart/Acetaminophen ([place] 5/325) 1 tab PO Q4H PRN PRN Reason: Pain Last Admin: 06/04/18 09:40 Dose: 1 tab Albuterol/Ipratropium (Duoneb) 3 ml NEB [id number] OSORIO Last Admin: 06/04/18 07:33 Dose: 3 ml Albuterol/Ipratropium (Duoneb) 3 ml NEB K3ED-ON PRN PRN Reason: SOB &/or Wheezing Alprazolam (Xanax) 0.25 mg PO BID PRN PRN Reason: Anxiety Last Admin: 06/03/18 22:10 Dose: 0.25 mg Aspirin (Ecotrin) 81 mg PO DAILY [facility] Last Admin: 06/04/18 09:30 Dose: 81 mg Cefdinir (Omnicef) 300 mg PO BID [facility] Stop: 06/08/18 09:01 Last Admin: 06/04/18 09:30 Dose: 300 mg Enoxaparin Sodium (Lovenox) 30 mg SC 0900 [facility] Last Admin: 06/04/18 09:30 Dose: 30 mg Fluoxetine HCl (Prozac) 40 mg PO DAILY [facility] Last Admin: 06/04/18 09:30 Dose: 40 mg Furosemide (Lasix) 20 mg PO 0900,1400 [facility] Last Admin: 06/04/18 09:30 Dose: 20 mg Guaifenesin (Mucinex) 600 mg PO Q12HR [facility] Last Admin: 06/04/18 09:30 Dose: 600 mg Lamotrigine (Lamictal) 100 mg PO [facility] Last Admin: 06/03/18 22:15 Dose: 100 mg Levothyroxine Sodium (Synthroid) 25 mcg PO 0600 [facility] Last Admin: 06/04/18 06:11 Dose: 25 mcg Melatonin (Melatonin) 6 mg PO [facility] Last Admin: 06/03/18 22:03 Dose: 6 mg Miscellaneous Medication (Pharmacy To Dose) 1 each IVPB PRN PRN PRN Reason: Pharmacy to dose Ondansetron HCl (Zofran) 4 mg IVP Q6H PRN PRN Reason: Nausea/Vomiting Last Admin: 05/30/18 19:20 Dose: 4 mg Pantoprazole Sodium (Protonix) 40 mg PO DAILY [facility] Last Admin: 06/04/18 09:30 Dose: 40 mg Potassium Chloride (K-Dur) 40 meq PO ONE OSORIO Stop: 06/04/18 10:00 Last Admin: 06/04/18 09:32 Dose: 40 meq Prednisone (Prednisone) 20 mg PO [facility] Last Admin: 06/04/18 09:30 Dose: 20 mg Saccharomyces Boulardii (Florastor) 250 mg PO DAILY [facility] Last Admin: 06/04/18 09:30 Dose: 250 mg Simvastatin (Zocor) 10 mg PO HS [facility] Last Admin: 06/03/18 22:08 Dose: 10 mg Sodium Chloride (Flush - Normal Saline) 10 ml IVF Q12HR [facility] Last Admin: 06/04/18 09:31 Dose: 10 ml Sodium Chloride (Flush - Normal Saline) 10 ml IVF PRN PRN PRN Reason: Saline Flush
[2018-06-04] MEDS: Melatonin 3 MG TAB PO SCH (20:48)
[2018-06-04] MEDS: Simvastatin 20 MG TAB PO SCH (20:48)
[2018-06-04] MEDS: lamoTRIgine 100 MG TAB PO SCH (20:48)
[2018-06-04] MEDS: ALPRAZolam 0.25 MG TAB PO PRN (20:53)
[2018-06-05 04:21] VITALS: BMI 20.5
[2018-06-05] MEDS: Levothyroxine Sodium 25 MCG TAB PO SCH (05:48)
[2018-06-05] MEDS: HYDROcodone/Acetaminophen 5/325 mg Tablet PO PRN ×3 (05:49→15:04)
[2018-06-05 06:05] LABS: #Basophils 0.1 thou/uL (0.0-0.2); #Lymphocytes 2.8 thou/uL (1.20-3.40); #Monocytes 1.4 thou/uL (0.11-0.59); %Basophils 0.6 % (0.0-1.0); %Eosinophils 0.3 % (0.0-10.0); %Lymphocytes 18.3 % (21.0-51.0); %Neutrophils 71.9 % (42.0-75.0); Hemoglobin 11.3 g/dL (12.0-16.0); Mean Corpuscular HGB CONC 32.4 g/dL (32.0-36.0); Mean Corpuscular Hemoglobin 31.4 pg (27.0-31.0); Mean Corpuscular Volume 96.9 fL (78.0-98.0); Mean Platelet Volume 9.5 fL (7.4-10.4); Platelet Count 192 thou/uL (130-400); RBC Distribution Width 13.2 % (11.5-14.5); White Blood Cell (WBC) Count 15.3 thou/uL (4.8-10.8)
[2018-06-05 06:31] LABS: Anion Gap 17 mmol/L (10-20); BUN (Urea Nitrogen) 43 mg/dL (9.8-20.1); Calc. Creatinine Clearance 36 mL/min (70-130); Calcium 8.7 mg/dL (7.8-10.44); Carbon Dioxide 22 mmol/L (23-31); Chloride 107 mmol/L (98-107); Estimated GFR-MDRD 43; Glucose 125 mg/dL (80-115); Potassium 3.5 mmol/L (3.5-5.1); Sodium 142 mmol/L (136-145)
--- NOTE | 2018-06-05 09:12 | PRG ---
DATE OF SERVICE: 06/05/2018 SUBJECTIVE: A 68-year-old female. This morning, she is doing better. OBJECTIVE: VITAL SIGNS: Sats are 95% on 4 L, respiratory rate 18, temperature 97, blood pressure 130/64. CHEST: Minimal crackles and rhonchi. CARDIAC: Normal S1, S2. No gallops. ABDOMEN: Soft. Acute renal function much improved. Creatinine 1 to 1.25. White count [id number]. IMPRESSION: 1. Respiratory failure, pneumonia, probably aspiration. 2. Diastolic dysfunction. Echo showed normal EF with diastolic dysfunction. PLAN: Disposition home any time if okay with primary care physician, back to the halfway. Job ID: [id number]
[2018-06-05] MEDS: Cefdinir 300 MG CAP PO SCH (09:13)
[2018-06-05] MEDS: Saccharomyces boulardii 250 MG CAP PO SCH (09:13)
[2018-06-05] MEDS: FLUoxetine HCl 20 MG CAP PO SCH (09:13)
[2018-06-05] MEDS: Furosemide 20 MG TAB PO SCH ×2 (09:13→15:05)
[2018-06-05] MEDS: guaiFENesin ER 600 MG TAB PO SCH (09:13)
[2018-06-05] MEDS: Aspirin 81 mg Enteric Coated Tablet PO SCH (09:14)
[2018-06-05] MEDS: Enoxaparin Sodium 30 MG/0.3 ML SYRINGE SC SCH (09:14)
[2018-06-05] MEDS: predniSONE 20 MG TAB PO SCH (09:18)
[2018-06-05] MEDS: ALPRAZolam 0.25 MG TAB PO PRN (09:24)
--- NOTE | 2018-06-05 11:23 | DIS ---
DATE OF ADMISSION: 05/29/2018 DATE OF DISCHARGE: 06/05/2018 PRIMARY CARE PHYSICIAN: Meet Ness MD DISCHARGE DISPOSITION: care home unit. PRIMARY DISCHARGE DIAGNOSES: Acute on chronic diastolic heart failure, acute respiratory failure with hypoxia, aspiration pneumonia, compression fracture of T12 vertebra. SECONDARY DISCHARGE DIAGNOSES: Hypothyroidism, protein-calorie malnutrition, moderate gastroesophageal reflux disease, oropharyngeal dysphagia, chronic kidney disease stage 3, anxiety and depression, normocytic normochromic anemia, chronic diastolic heart failure. PRIMARY PROCEDURE/OPERATION: None. RADIOLOGICAL INVESTIGATION: CT brain negative for any acute intracranial process. CT cervical spine negative for any acute cervical spine fracture or dislocation. CT chest, abdomen, and pelvis showed a T12 compression fracture. Chest x-ray showed pneumonia. Echocardiography showed diastolic dysfunction. SIGNIFICANT LABORATORY DATA: WBC 15.3, hemoglobin 11.3, platelets 192. Sodium 142, potassium 3.5, BUN 43, creatinine 1.25, calcium 8.7. Troponin 0.019. Urinalysis unremarkable. Blood culture and urine culture, negative. DISCHARGE MEDICATIONS: 1. Baclofen 5 mg q.6 hourly p.r.n. 2. Tums 1000 mg q.6 hourly p.r.n. 3. Simethicone 80 mg q.6 hourly p.r.n. 4. Tramadol 50 mg q.6 hourly p.r.n. 5. Imodium p.r.n. 6. Milk of magnesia 30 mL p.o. daily p.r.n. 7. DuoNeb q.6 hourly p.r.n. 8. Zocor 10 mg p.o. at bedtime. 9. Prednisone 20 mg p.o. daily for 7 days. 10. Lasix 20 mg p.o. daily for one month. 11. Omnicef 300 mg p.o. b.i.d. for 7 days. 12. Mucinex 600 mg p.o. b.i.d. for 7 days. 13. Seroquel 200 mg p.o. at bedtime. 14. MiraLAX 17 g p.o. daily. 15. Pindolol 5 mg p.o. b.i.d. 16. Protonix 40 mg p.o. daily. 17. Multivitamin one tablet p.o. daily. 18. Melatonin 5 mg p.o. at bedtime. 19. Megace 40 mg p.o. daily. 20. Synthroid 25 mcg p.o. daily. 21. Lamotrigine 100 mg p.o. at bedtime. 22. Gabapentin 100 mg p.o. at bedtime. 23. Prozac 20 mg p.o. daily and 20 mg p.o. at bedtime. 24. Dexmethylphenidate 5 mg p.o. b.i.d. 25. Buspirone 30 mg p.o. b.i.d. 26. Aspirin 81 mg p.o. daily. CONTRAINDICATION: None. CODE STATUS: Full code. INPATIENT CYBER SECURITY ARCHITECT: Dr. Roman was following for respiratory failure. TEST RESULTS PENDING ON DISCHARGE: None. ALLERGIES: SULFA DRUGS. DISCHARGE PLAN: Posthospital, the patient will follow up with primary care physician at custodial unit. HOSPITAL COURSE: A 68-year-old female with above-mentioned medical problem, who was admitted by Dr. Gamble. Please see his H and P for further details. On admission, the patient was brought to ER from [facility] for fall. She was having bilateral hip pain, leg pain. The patient had trauma workup in the emergency room with CT brain, which was negative for any acute process. CT cervical spine also did not show any fracture or dislocation. Chest, abdomen, and pelvis showed compression fracture of T12. The patient was admitted to telemetry floor. Her pain was controlled with pain medication. While in hospital, we noted that she had aspiration pneumonia. Her chest x-ray was also concurrent with aspiration pneumonia. The patient also developed respiratory failure. She had code green ordered on telemetry floor. The patient required ICU transfer. The patient was treated with BiPAP. She was started on broad-spectrum antibiotic therapy with cefepime, Levaquin, vancomycin. Subsequently, we changed to Omnicef. The patient was also given Lasix for her elevated BNP and diastolic heart failure, which was new diagnosis. The patient was also given steroid while in hospital and because of that, the patient's white count is still elevated. The patient's renal function improved towards baseline. The patient was given nutritional support while in the hospital. At this point, the patient is stabilized after our ICU transfer. She was transferred back to telemetry floor. The patient does not need oxygen at this point and that will be continued at [facility] and she will continue getting respiratory therapy at [facility]. Above-mentioned medication was prescribed upon discharge. The patient was seen and examined at bedside today. All review of systems reviewed with her and negative. PHYSICAL EXAMINATION: VITAL SIGNS: Currently, temperature 97.9, pulse 74, respiratory rate 18, saturation 94% on 2 to 3 L, blood pressure 134/63, weight 116 pounds. GENERAL: The patient is currently alert, awake, in no obvious acute distress. HEENT: Head; normocephalic, atraumatic. Eyes; pupils round, reactive to light. Extraocular muscles intact. ENT; oropharynx within normal limits. Moist mucous membranes. No oral lesion. No pharyngeal erythema. No exudate. NECK: Supple. No JVD. No thyromegaly. No carotid bruit. LUNGS: Clear without any obvious rhonchi. CARDIAC: S1, S2. Regular without any murmur. ABDOMEN: Soft and benign. EXTREMITIES: No edema. NEUROLOGIC: Nonfocal examination. Paperwork for discharge done and discharge medication reconciliation done. Total time spent on discharge day, 31 minutes. Job ID: [id number]
[2018-06-05 15:48] VITALS: BP 138/65; TEMP 98
--- NOTE | 2018-06-06 18:06 | EKG ---
Test Reason : Blood Pressure : / mmHG Vent. Rate : 070 BPM Atrial Rate : 070 BPM P-R Int : 148 ms QRS Dur : 058 ms QT Int : 430 ms P-R-T Axes : 090 014 036 degrees QTc Int : 464 ms Normal sinus rhythm Confirmed by HORTENSIA TRAN [id number]), map editor VERA CAMPA ([id number]) on 06/06/2018 6:05:44 PM Referred By: Confirmed By:HORTENSIA TRAN
== END 2018-06-05 15:45 | DRG 177 ==
LOC: ERS 08:31 → 2NO 15:56 → CCU 06-01 17:06 → 2NO 06-04 01:25
PROVIDERS: ADMIT Internal Medicine Nephrology; ATTEND Internal Medicine Nephrology
DX: J69.0 Pneumonitis due to inhalation of food and vomit (principal); J96.01 Acute respiratory failure with hypoxia; I50.33 Acute on chronic diastolic (congestive) heart failure; S22.080A Wedge compression fracture of T11-T12 vertebra, initial encounter for closed fracture; E87.2 Acidosis; I69.951 Hemiplegia and hemiparesis following unspecified cerebrovascular disease affecting right dominant side; E44.0 Moderate protein-calorie malnutrition; R13.12 Dysphagia, oropharyngeal phase; E87.5 Hyperkalemia; N18.3 Chronic kidney disease, stage 3 (moderate); D63.1 Anemia in chronic kidney disease; M25.552 Pain in left hip; M25.551 Pain in right hip; Z99.3 Dependence on wheelchair; F41.8 Other specified anxiety disorders; W18.30XA Fall on same level, unspecified, initial encounter; Y92.129 Unspecified place in nursing home as the place of occurrence of the external cause; K21.9 Gastro-esophageal reflux disease without esophagitis; E03.9 Hypothyroidism, unspecified; Z68.20 Body mass index [BMI] 20.0-20.9, adult; Z79.82 Long term (current) use of aspirin; Z88.8 Allergy status to other drugs, medicaments and biological substances; Z88.2 Allergy status to sulfonamides
CPT/HCPCS: 36415; 36416; 70450; 71045; 71260; 72125; 74177; 80048; 80053; 80202; 81003; 81015; 82805; 83605; 83880; 84484; 85025; 87040; 87086; 93005; 93306; 94640; 94660; 96361; 96365; 96367; C9113; J0692; J1650; J1940; J1956; J2270; J2405; J2543; J2920; J3370; J7042; J7050; J7506; J7620; Q9966

== ENCOUNTER 2018-06-17 01:33 | Inpatient (IN) | payer MEDICARE, MEDICAID ==
[2018-06-17 02:45] LABS: Hemoglobin 11.8 g/dL (12.0-16.0); Mean Corpuscular HGB CONC 32.2 g/dL (32.0-36.0); Mean Corpuscular Hemoglobin 31.3 pg (27.0-31.0); Mean Corpuscular Volume 97.2 fL (78.0-98.0); Mean Platelet Volume 11.2 fL (7.4-10.4); Platelet Count 242 thou/uL (130-400); RBC Distribution Width 13.2 % (11.5-14.5); Red Blood Cell (RBC) Count 3.76 mill/uL (4.20-5.40); White Blood Cell (WBC) Count 26.2 thou/uL (4.8-10.8)
[2018-06-17 02:57] LABS: Bilirubin Negative (Negative); Blood, Urine Negative (Negative); Clarity CLEAR (Clear); Glucose, Urine (Dipstick) >=1000 mg/dL (Negative); Leukocyte Negative (Negative); Nitrite Negative (Negative); Protein, Urine (Dipstick) Trace mg/dL (Neg-Trace); Urobilinogen 0.2 mg/dL (0.2-1.0); pH, Urine 5.5 (5.0-9.0)
[2018-06-17 02:58] LABS: Band 5 % (5-11); Eosinophils 1 % (0-10); Lymphocytes 9 % (21-51); MDiff Complete? YES; Monocytes 4 % (0-10); Neutrophil 81 % (42-75)
[2018-06-17 03:03] LABS: Magnesium 2.2 mg/dL (1.6-2.6); Phosphorus 3.3 mg/dL (2.3-4.7)
[2018-06-17 03:04] LABS: ALT (SGPT) 18 U/L (8-55); AST (SGOT) 18 U/L (5-34); Albumin 3.3 g/dL (3.4-4.8); Alkaline Phosphatase 134 U/L (40-150); Anion Gap 17 mmol/L (10-20); BUN (Urea Nitrogen) 72 mg/dL (9.8-20.1); Calc. Creatinine Clearance 0 mL/min (70-130); Calcium 9.6 mg/dL (7.8-10.44); Carbon Dioxide 22 mmol/L (23-31); Chloride 99 mmol/L (98-107); Estimated GFR-MDRD 17; Globulin 3.3 g/dL (2.4-3.5); Protein, Total 6.6 g/dL (6.0-8.3); Sodium 134 mmol/L (136-145)
[2018-06-17 03:20] LABS: Glucose 589 mg/dL (80-115)
[2018-06-17] MEDS ORDERED: Insulin Regular 300 UNITS/3 ML VIAL ONE (03:29)
[2018-06-17] MEDS ORDERED: Piperacillin/Tazobactam 4.5 GM VIAL ONE (03:30)
[2018-06-17 04:13] LABS: Actual Bicarbonate (HCO3a) 16.8 mEq/L (22-28); Analyzer IN Cardio ER; Base Excess (BEa) -6.5 mEq/L (-2.0 to +3.0); CO2 Tension 26.9 mmHg (35.0-45.0); Calcium, Ionized 1.18 mmol/L (1.12-1.30); Carboxyhemoglobin (COHb) 0.1 gm% (0.0-3.0); Potassium - ABG Lab 2.72 mmol/L (3.70-5.30); pH, Arterial 7.41 (7.35-7.45)
[2018-06-17 04:14] LABS: O2 Tension (PaO2) 56.3 mmHg (> 80.0); Puncture Site RRA
[2018-06-17 04:15] LABS: ALV-art Gradient 623.075 (0-20)
[2018-06-17] MEDS ORDERED: Norepinephrine 8 MG/0.9% NS 250 ML ONE (05:20)
[2018-06-17] MEDS ORDERED: Ondansetron ODT 4 MG TAB PO PRN (05:36)
[2018-06-17] MEDS ORDERED: Ondansetron PF 4 MG/2 ML Vial IVP PRN (05:36)
[2018-06-17] MEDS ORDERED: Acetaminophen 325 MG TAB PO PRN (05:36)
[2018-06-17] MEDS ORDERED: Calcium Carbonate 500 MG ChewTAB PO PRN (05:38)
[2018-06-17] MEDS ORDERED: Norepinephrine 8 MG/0.9% NS 250 ML IVPB SCH (05:45)
[2018-06-17] MEDS ORDERED: Dextrose 5% in Water 1,000 ML IV PRN (06:14)
[2018-06-17] MEDS ORDERED: Dextrose 50% Abboject 50 ML SYRINGE SLOW IVP PRN (06:14)
--- NOTE | 2018-06-17 08:10 | HP ---
PRIMARY CARE DOCTOR: Meet Ness MD CODE STATUS: Full code. TIME OF EVALUATION: 3:25 a.m. CHIEF COMPLAINT: Confusion. HISTORY OF PRESENT ILLNESS: This is a 68-year-old female patient, [facility] resident, past medical history of renal failure, restless legs syndrome, hypothyroidism, came to the hospital after having acute change in mental status, with no clear triggers, no alleviating factors. Symptoms were severe. The patient had been recently admitted to the hospital for possible aspiration pneumonia, presented with hypoxia, blood pressure initially was normal, then fluids, later on dropped to the 70s and 80s. The patient has been started on Levophed and broad-spectrum antibiotics, will be placed in ICU for septic shock. REVIEW OF SYSTEMS: Unable to obtain completely since the patient is confused. She did report having shortness of breath, cough, unclear this information from her is totally accurate due to confusion. PAST MEDICAL HISTORY: As reported in HPI. PAST SURGICAL HISTORY: Cholecystectomy, x4, hysterectomy, orthopedic surgery, right femur surgery. PSYCH HISTORY: Includes anxiety, depression. SOCIAL HISTORY: No alcohol use. No drug use. No smoking history. KNOWN ALLERGIES: To Bactrim. FAMILY HISTORY: Reviewed and non contributory for current presentation. REPORTED MEDICATIONS: 1. Aspirin. 2. Baclofen. 3. Buspirone. 4. Clonidine. 5. Dexmethylphenidate. 6. Fluoxetine. 7. Lamotrigine. 8. Levothyroxine. 9. Megace. 10. Melatonin. 11. Pantoprazole. 12. Polyethylene glycol. 13. Quetiapine. PHYSICAL EXAMINATION: VITAL SIGNS: On presentation, blood pressure 97/52 with heart rate 79, respiratory rate was 20, temperature 98.4, pain 0/10. Oxygen saturation was 92 on 2 L oxygen. GENERAL APPEARANCE: The patient is alert, confused, in mild distress due to shortness of breath. HEENT: Eyes, normal conjunctivae. Moist oral mucosa. Anicteric. No JVD. RESPIRATORY: Bilateral air entry. Bilateral rales. No wheezing. Symmetric expansion. CARDIOVASCULAR: The patient is tachycardic, hypotensive, needed Levophed to keep blood pressure up. No murmurs. No gallop. No edema. ABDOMEN: Soft, normal bowel sounds. MUSCULOSKELETAL: Baseline range of motion and strength. No tenderness. SKIN: Warm, intact. No pallor. No rash. No redness. VASCULAR: Peripheral pulses are present. Capillary refill seems to be intact. NEURO: No evidence of any new focal weakness. Baseline speech. Cranial nerves seem to be intact. The patient is confused. PSYCHIATRIC: Unable to explore, the patient is confused. LABORATORY DATA: EKG was reviewed. The patient has normal sinus rhythm with a rate of 78 with OH 112, QRS 70, QT corrected 485. Labs were reviewed. The patient has a white count of 26.2, hemoglobin 11.8, MCV 97.2 with bands of 5. Blood gas, pH 7.41 with pCO2 26 and PO2 56 . Chemistry; sodium 134, potassium 4.0, chloride 99, carbon dioxide 22, anion gap 17, BUN 72, creatinine 2.73, GFR 17, glucose 186. LFTs were normal. Magnesium was normal. Urine was done, it was negative only showed glucosuria, beta hydroxybutyrate was 0.04. Chest x-ray; the patient has air trapping syndrome signs in the chest x-ray with possible infiltrate in bilateral bases. Also central line in the left IJ appears to be in the right IVC. Brain CT was reviewed, it was negative. ASSESSMENT AND PLAN: The patient will be placed in the hospital with following medical problems: 1. Septic shock. The patient has hypotension, acute respiratory failure, pneumonia is the source, placed on broad-spectrum antibiotics, on Levophed, will be placed in ICU. We will follow cultures and adjust treatment as needed. 2. Healthcare associated pneumonia. The patient has been recently admitted to the hospital. Treatment as above. 3. Acute hypoxic respiratory failure, saturation above 90. This is likely secondary to pneumonia. We will treat underlying condition. 4. Hyponatremia, sodium 134 and this is mild, the patient is receiving fluid, we will monitor. 5. Acute on chronic kidney injury. The patient has a creatinine 2.7 and previous one is 1.2. We will continue hydration, this is likely secondary to sepsis. We will treat underlying condition, we will monitor. If not improving, might need Nephrology evaluation for optimal control. 6. Uncontrolled diabetes with blood sugar of 5[address] will place the patient on a sliding scale, hypoglycemia protocol. 7. Hypothyroidism, continue hormone replacement. Job ID: [id number] [facility]
--- NOTE | 2018-06-17 08:27 | RAD ---
SINGLE VIEW CHEST: HISTORY: Altered mental status. Central line placement. COMPARISON: 06/17/2018 FINDINGS: A single view of the chest shows a normal sized cardiomediastinal silhouette. There is a left IJ ana luisa tral venous catheter with its tip at the atriocaval junction. No pneumothorax is seen. There is no evidence of consolidation, mass, or pleural effusion. IMPRESSION: Status post central line placement without evidence of complication. POS: [facility]
--- NOTE | 2018-06-17 08:52 | RAD ---
SINGLE VIEW OF THE CHEST: Comparison: 06-02-18 History: Altered mental status. FINDINGS: Single view of the chest shows normal sized cardiomediastinal silhouette. Increased interstitial mohinder ings are present. There is no evidence of consolidation, mass, or pleural effusion. IMPRESSION: Chronic interstitial lung disease without acute cardiopulmonary process. POS: [facility]
[2018-06-17] MEDS ORDERED: busPIRone HCl 10 MG TAB PO SCH ×2 (09:00→22:00)
[2018-06-17] MEDS ORDERED: DEXMETHYLPHENIDATE HCL 5 MG PO SCH (09:00)
[2018-06-17] MEDS ORDERED: Aspirin 81 mg Enteric Coated Tablet PO SCH (09:00)
[2018-06-17] MEDS: Enoxaparin Sodium 40 MG/0.4 ML SYRINGE SC SCH (09:22)
[2018-06-17] MEDS: Sodium Chloride 0.9% 1,000 ML IV SCH ×2 (09:24→15:46)
--- NOTE | 2018-06-17 09:29 | CT ---
PRELIMINARY REPORT/[facility]/EMERGENTY AFTER-HOURS PROCEDURE CT Head Without Contrast EXAM DATE/TIME: 06/17/2018 2:03 AM CLINICAL HISTORY: 68 years old, female; Signs and symptoms; Altered mental status/memory loss; Confusion or disorientat ion; Patient HX: AMS starting yesterday, PT normally aox4 TECHNIQUE: Axial computed tomography images of the head/brain without contrast. COMPARISON: No relevant prior studies available. FINDINGS: Brain: Old lacunar infarction(s). Mild generalized volume loss of the brain. No brain edema. No intra cranial hemorrhage. Ventricles: Normal. No ventriculomegaly. Bones/joints: Unremarkable. No acute fracture. Sinuses: Visualized sinuses are unremarkable. No acute sinusitis. Mastoid air cells: Visualized mastoid air cells are unremarkable. No mastoid effusion. Soft tissues: Unremarkable. IMPRESSION: No acute brain findings. Thank you for allowing us to participate in the care of your patient. Dictated and Authenticated by: Miguel Rodriguez MD 06/17/2018 2:31 AM Central Time ([place] & [place]) FINAL REPORT CT HEAD NONCONTRAST PERFORMED ON AN EMERGENCY BASIS: Date: 06/17/18 Time: 0205 hours HISTORY: Altered mental status. COMPARISON: 05/29/18. FINDINGS: Findings agree with the preliminary report by Bulmaro. Old left basal ganglia infarct and other chronic- type findings are stable. No acute intracranial abnormalities are demonstrated. POS: [facility]
[2018-06-17] MEDS ORDERED: Albumin 25% 25 GM/100 ML BOT IVPB SCH (09:30)
[2018-06-17] MEDS ORDERED: Piperacillin/Tazobactam 3.375 GM in Sodium Chloride 0.9% 100 ML IVPB SCH (10:00)
--- NOTE | 2018-06-17 10:32 | CON ---
DATE OF CONSULTATION: HISTORY OF PRESENT ILLNESS: A 68-year-old female from the [facility] [place] was brought in last night with confusion and respiratory distress. She has been here numerous times in this hospital, in fact she was just recently discharged on 06/05/2018. No more than 2 weeks ago with a discharge diagnosis of diastolic dysfunction, respiratory failure, aspiration. She now apparently was doing well until the last 24 to 48 hours as per the [facility]. She became more confused, more agitated, sats were low. She brought to the ER. She was hypotensive. She was started on Levophed. This morning, she appears to be somewhat more improved. She said she is having difficulty swallowing her food in the [facility], takes an extended period of time due to diet. PAST MEDICAL HISTORY: Some kind of dysphagia. Renal failure, hypothyroidism, previous CVA, and restless leg. PREVIOUS SURGERIES: Have included multiple as noted hysterectomy, right femur surgery, cholecystectomy, and . MEDICATIONS: From [facility] include multiple anti-anxiety depression medications includin. BuSpar 30 twice a day. 2. Prozac 20. 3. Prednisone. 4. Lamotrigine 100. 5. Seroquel 200. 6. Melatonin. 7. DuoNeb. 8. Gabapentin. 9. Lasix. She is now started on Zosyn. ALLERGIES: SHE HAS ALLERGIES TO BACTRIM. SOCIAL HISTORY: Alcohol, none. Tobacco, none. REVIEW OF SYSTEMS: Difficult to obtain. PHYSICAL EXAMINATION: GENERAL: This morning; pulse 82, blood pressure 103/63 off the Levophed, respirations 17, and sats difficult to be obtained, but she is awake and responsive. Denies difficulty breathing. CHEST: Decreased breath sounds. No wheezing. CARDIAC: Normal S1 and S2. No gallops. ABDOMEN: Soft. NEUROLOGIC: She is moving all 4 extremities. LABORATORY DATA: White count 26,000, hemoglobin and hematocrit of 11 and 36, platelet count is normal. A pO2 was 56, pCO2 non-rebreather. BUN and creatinine are 72 and 2.3, glucose is 589. IMPRESSION: 1. Azotemia, most of it appears to be prerenal, probably dehydration. 2. Bipolar dementia. 3. Hypothyroidism. 4. Elevated blood sugar. 5. Probably chronic aspiration. 6. Leukocytosis. PLAN: Avoid excessive sedative medication. Anti-anxiety medication. I will consult speech regarding swallow to see whether she can tolerate a diet. Otherwise, she is going to need a feeding tube PEG. Continue antibiotics. Continue neb treatments. Continue supportive care. Try and wean off the Levophed. Order a cortisol level to see whether adrenal glands are hypoactive. We will follow. 45 minutes of critical time. Job ID: [id number]
[2018-06-17] MEDS: HumaLOG 300 UNITS/3 ML VIAL SC PRN ×2 (12:01→15:20)
--- NOTE | 2018-06-17 12:41 | PDOC.EVN ---
Event Note - Event Note Event Note: Chart reviewed. Pt seen. Confused, unable to answer questions. On levophed drip and antibiotics. Will follow.
[2018-06-17] MEDS ORDERED: Nystatin Powder 15 GM BOT TOP PRN (14:47)
[2018-06-17 15:30] LABS: Anion Gap 15 mmol/L (10-20); BUN (Urea Nitrogen) 55 mg/dL (9.8-20.1); Calc. Creatinine Clearance 22 mL/min (70-130); Calcium 8.8 mg/dL (7.8-10.44); Carbon Dioxide 18 mmol/L (23-31); Chloride 114 mmol/L (98-107); Estimated GFR-MDRD 26; Glucose 181 mg/dL (80-115); Potassium 3.1 mmol/L (3.5-5.1); Sodium 144 mmol/L (136-145)
[2018-06-17] MEDS: Piperacillin/Tazobactam 2.25 GM in Sodium Chloride 0.9% 100 ML IVPB SCH ×2 (16:10→22:21)
--- NOTE | 2018-06-17 17:51 | CON ---
DATE OF CONSULTATION: 06/17/2018 CONSULTING PHYSICIAN: Dr. Sands. REASON FOR CONSULTATION: Acute kidney injury. REASON FOR ADMISSION: Altered mentation. HISTORY OF PRESENT ILLNESS: A 68-year-old female with history of restless legs syndrome, hypothyroidism, came to the hospital with confusion, was found to have elevation of her creatinine. Nephrology is consulted. The patient is not able to give a good history. No nausea or vomiting. No chest pain. PAST MEDICAL HISTORY: Positive for restless legs syndrome, CKD, back pain, depression, hypothyroidism, and GERD. PAST SURGICAL HISTORY: Cholecystectomy, , hysterectomy, and right femur surgery. HOME MEDICATIONS: Reviewed. ALLERGIES: BACTRIM. SOCIAL HISTORY: No smoking, alcohol, or illicit drug abuse. FAMILY HISTORY: No history of any kidney disease. REVIEW OF SYSTEMS: CONSTITUTIONAL: Negative for weight loss or gain, ability to conduct usual activities. SKIN: Negative for rash, itching. EYES: Negative for double vision, pain. ENT/MOUTH: Negative for nose bleeding, neck stiffness, pain, tenderness. CARDIOVASCULAR: Negative for palpitations, dyspnea on exertion, orthopnea. RESPIRATORY: Negative for shortness of breath, wheezing, cough, hemoptysis, fever or night sweats. GASTROINTESTINAL: Negative for poor appetite, abdominal pain, heartburn, nausea, vomiting, constipation, or diarrhea. GENITOURINARY: Negative for urgency, frequency, dysuria, nocturia. MUSCULOSKELETAL: Negative for pain, swelling. NEUROLOGIC/PSYCHIATRIC: Negative for anxiety, depression. ALLERGY/IMMUNOLOGIC: Negative for skin rash, bleeding tendency. PHYSICAL EXAMINATION: GENERAL: This is an elderly female, in no apparent distress. VITAL SIGNS: Temperature 98.1, pulse 80, respiratory rate 18, and blood pressure 103/51. LABORATORY DATA: Potassium 3.1, BUN is 55, and creatinine is 1.9. ASSESSMENT AND PLAN: 1. Acute kidney injury, getting better. 2. Hypokalemia, replace and monitor. 3. Metabolic acidosis. 4. Uremia, better. 5. Hyperalbuminemia. 6. Anemia. Overall, renal function is getting better. Avoid nephrotoxins. Monitor renal function. Replace potassium and we will follow. Job ID: [id number]
[2018-06-17] MEDS ORDERED: FLUoxetine HCl 20 MG CAP PO SCH (21:00)
[2018-06-17] MEDS ORDERED: Simvastatin 5 MG TAB PO SCH (22:00)
[2018-06-17] MEDS ORDERED: Gabapentin 100 MG CAP PO SCH (22:00)
[2018-06-17] MEDS ORDERED: lamoTRIgine 100 MG TAB PO SCH (22:00)
[2018-06-17] MEDS ORDERED: Melatonin 3 MG TAB PO PRN (22:02)
[2018-06-18 04:58] LABS: #Basophils 0.1 thou/uL (0.0-0.2); #Eosinphils 0.2 thou/uL (0.0-0.7); #Lymphocytes 1.7 thou/uL (1.20-3.40); #Monocytes 1.2 thou/uL (0.11-0.59); #Neutrophils 10.2 thou/uL (1.40-6.50); %Basophils 0.4 % (0.0-1.0); %Eosinophils 1.6 % (0.0-10.0); %Lymphocytes 12.5 % (21.0-51.0); %Monocytes 8.9 % (0.0-10.0); %Neutrophils 76.6 % (42.0-75.0); Mean Corpuscular HGB CONC 32.9 g/dL (32.0-36.0); Mean Corpuscular Hemoglobin 32.5 pg (27.0-31.0); Mean Corpuscular Volume 98.8 fL (78.0-98.0); Mean Platelet Volume 10.9 fL (7.4-10.4); Platelet Count 152 thou/uL (130-400); RBC Distribution Width 13.2 % (11.5-14.5); Red Blood Cell (RBC) Count 2.78 mill/uL (4.20-5.40); White Blood Cell (WBC) Count 13.3 thou/uL (4.8-10.8)
[2018-06-18 05:05] LABS: Anion Gap 14 mmol/L (10-20); BUN (Urea Nitrogen) 36 mg/dL (9.8-20.1); Calc. Creatinine Clearance 24 mL/min (70-130); Calcium 8.3 mg/dL (7.8-10.44); Carbon Dioxide 16 mmol/L (23-31); Chloride 119 mmol/L (98-107); Estimated GFR-MDRD 29; Glucose 230 mg/dL (80-115); Potassium 3.5 mmol/L (3.5-5.1); Sodium 145 mmol/L (136-145)
[2018-06-18] MEDS: Piperacillin/Tazobactam 2.25 GM in Sodium Chloride 0.9% 100 ML IVPB SCH ×5 (05:35→22:47)
[2018-06-18] MEDS: Levothyroxine Sodium 25 MCG TAB PO SCH (05:36)
--- NOTE | 2018-06-18 09:04 | PRG ---
DATE OF SERVICE: 06/18/2018 OBJECTIVE: VITAL SIGNS: Respiratory rate 22, pulse 82, temperature 99, blood pressure 120/62. GENERAL: She is less short of breath. She failed the swallow test. CHEST: Decreased breath sounds without any wheezing. CARDIAC: Normal S1 and S2. No gallop. ABDOMEN: No mass. LABORATORY DATA: Creatinine 1.74, BUN is 36. White count 20,000, H and H 9 and 27, platelet count 152. IMPRESSION: 1. Recurrent aspiration. 2. Dysphagia. 3. Hypertension. 4. Cachexia. PLAN: 1. She needs a PEG for ongoing care. 2. she failed the swallow test. 3. We will follow. Job ID: [id number] MTDD
--- NOTE | 2018-06-18 10:47 | PRG ---
DATE OF SERVICE: 06/18/2018 SUBJECTIVE: Patient was seen and examined at bedside and overnight events noted. Patient denies any shortness of breath or chest pain or palpitation. No history of nausea or vomiting or diarrhea or fever or chills or cramps. OBJECTIVE: GENERAL: This is an elderly female, in no apparent distress. VITAL SIGNS: Temperature 99.4. Heart rate 82. Respiratory rate 18. Blood pressure 123/62. HEENT: Atraumatic, normocephalic. Oral mucosa is moist. NECK: Supple. CARDIOVASCULAR: S1, S2 heard. Rate and rhythm regular. RESPIRATORY: Clear to auscultation. GASTROINTESTINAL: Abdomen is soft. MUSCULOSKELETAL: No tenderness. No edema. DERMATOLOGIC: No skin rash. NEUROLOGIC: Alert and awake and oriented X3. No focal neurologic deficits. Moving all the extremities. PSYCHIATRIC: Mood and affect normal. LABORATORY DATA: Potassium is 3.5, BUN is 36, and creatinine is 1.7. ASSESSMENT AND PLAN: 1. Acute kidney injury, much better. 2. Avoid nephrotoxins. 3. Metabolic acidosis. We will add sodium bicarbonate. 4. Edema, controlled. 5. Hypertension, stable. 6. Hyperglycemia. 7. Anemia, mild, rule out. Continue hydration as tolerated. Avoid nephrotoxins. Job ID: [id number]
[2018-06-18] MEDS ORDERED: Aspirin Chewable 81 MG TAB ONE (10:50)
[2018-06-18] MEDS: Megestrol Acetate 800 MG/20 ML UDCUP PO SCH (10:59)
[2018-06-18] MEDS: Enoxaparin Sodium 40 MG/0.4 ML SYRINGE SC SCH (11:01)
[2018-06-18] MEDS: busPIRone HCl 10 MG TAB PO SCH ×2 (11:02→21:13)
[2018-06-18] MEDS: FLUoxetine HCl 20 MG CAP PO SCH (11:03)
[2018-06-18] MEDS ORDERED: Aspirin 81 mg Enteric Coated Tablet ONE ×2 (11:05→11:07)
[2018-06-18] MEDS: Aspirin 81 mg Enteric Coated Tablet PO SCH (11:09)
--- NOTE | 2018-06-18 13:26 | PDOC.PN ---
- Subjective Encounter Start Date: 06/18/18 Encounter Start Time: 08:20 Pt seen for followup re; acute hypoxic respiratory failure. Pt attempting to answer questions but unable to understand, could not complete ROS. - Objective Resuscitation Status - Order Detail: 06/17/18 05:36 Resuscitation Status Routine Resuscitation Status: FULL: Full Resuscitation Vital Signs & Weight: Vital Signs (12 hours) Temp Pulse Resp BP Pulse Ox 06/18/18 11:25 99.4 F 81 20 114/60 100 06/18/18 08:00 99.4 F 82 22 H 126/62 95 06/18/18 07:28 80 16 06/18/18 04:03 98.6 F 84 21 H 108/58 L 100 Weight Weight 106 lb 4.8 oz Most Recent Monitor Data Heart Rate from ECG 83 NIBP 98/55 NIBP BP-Mean 69 Respiration from ECG 13 SpO2 86 I&O: 06/17/18 06/18/18 06/19/18 06:59 06:59 06:59 Intake Total 1460 Output Total 3 Balance 1457 Result Diagrams: 06/18/18 04:27 06/18/18 04:27 Additional Labs: Accuchecks 06/18/18 06/18/18 06/17/18 11:15 05:22 20:10 POC Glucose 248 H 266 H 131 H 06/17/18 06/17/18 15:12 10:49 POC Glucose 218 H 327 H Phys Exam - Physical Examination appears frail HEENT: moist MMs, sclera anicteric, oral pharynx no lesions, 2+ tonsils Neck: no nodes, no JVD, supple, full ROM Respiratory: wheezing present Cardiovascular: RRR, no rub S1, s2 Gastrointestinal: soft, non-tender, no distention, positive bowel sounds Neurological: moves all 4 limbs Psychiatric: normal affect Deviation from normal: Unable to assess orientation to person, place or time Dx/Plan (1) Pneumonia Code(s): J18.9 - PNEUMONIA, UNSPECIFIED ORGANISM Status: Acute Qualifiers: Pneumonia type: aspiration pneumonia Comment: improving, continue antibiotics as below. (2) Acute worsening of stage 3 chronic kidney disease Code(s): N18.3 - CHRONIC KIDNEY DISEASE, STAGE 3 (MODERATE) Status: Acute Comment: Improving (3) GERD (gastroesophageal reflux disease) Code(s): K21.9 - GASTRO-ESOPHAGEAL REFLUX DISEASE WITHOUT ESOPHAGITIS Status: Chronic Comment: stable (4) Hypothyroidism Code(s): E03.9 - HYPOTHYROIDISM, UNSPECIFIED Status: Chronic Comment: stable (5) Septic shock Code(s): A41.9 - SEPSIS, UNSPECIFIED ORGANISM; R65.21 - SEVERE SEPSIS WITH SEPTIC SHOCK Status: Resolved - Plan continue antibiotics, PT/OT, out of bed/ambulate * . Review of Systems - Medications/Allergies Allergies/Adverse Reactions: Allergies Allergy/AdvReac Type Severity Reaction Status Date / Time sulfamethoxazole Allergy Verified 05/29/18 19:50 [From Bactrim] trimethoprim [From Bactrim] Allergy Verified 05/29/18 19:50 Medications: Current Medications Acetaminophen (Tylenol) 650 mg PO Q4H PRN PRN Reason: Headache/Fever/Mild Pain (1-3) Albuterol/Ipratropium (Duoneb) 3 ml NEB [id number] [facility] Last Admin: 06/18/18 07:28 Dose: 3 ml Aspirin (Ecotrin) 81 mg PO DAILY [facility] Last Admin: 06/18/18 11:09 Dose: 81 mg Buspirone HCl (Buspar) 30 mg PO BID [facility] Last Admin: 06/18/18 11:02 Dose: 30 mg Calcium Carbonate (Tums) 1,000 mg PO Q6HR PRN PRN Reason: Indigestion Dextrose/Water (Dextrose 50%) 25 gm SLOW IVP PRN PRN PRN Reason: Hypoglycemia Enoxaparin Sodium (Lovenox) 40 mg SC 0900 [facility] Last Admin: 06/18/18 11:01 Dose: 40 mg Fluoxetine HCl (Prozac) 40 mg PO DAILY [facility] Last Admin: 06/18/18 11:03 Dose: 40 mg Gabapentin (Neurontin) 100 mg PO HS [facility] Glucagon (Glucagon) 1 mg IM PRN PRN PRN Reason: Hypoglycemia Norepinephrine Bitartrate (Levophed) 250 mls @ 0 mls/hr IVPB INF [facility]; Protocol Dextrose/Water (D5w) 1,000 mls @ 0 mls/hr IV .Q0M PRN PRN Reason: Hypoglycemia Piperacillin Sod/Tazobactam (Sod 2.25 gm/ Sodium Chloride) 100 mls @ 200 mls/ hr IVPB 0500,1100,1700,2300 [facility] Last Admin: 06/18/18 10:57 Dose: 100 mls Insulin Human Lispro (Humalog) 0 units SC .MILD SLIDING SCALE PRN PRN Reason: Mild Correctional Scale Last Admin: 06/17/18 15:20 Dose: 3 unit Lamotrigine (Lamictal) 100 mg PO HS [facility] Levothyroxine Sodium (Synthroid) 25 mcg PO 0600 [facility] Last Admin: 06/18/18 05:36 Dose: Not Given Megestrol Acetate (Megace) 400 mg PO DAILY [facility] Last Admin: 06/18/18 10:59 Dose: 400 mg Melatonin (Melatonin) 3 mg PO HS PRN PRN Reason: Insomnia Miscellaneous Medication (Pharmacy To Dose) 1 each IVPB PRN PRN PRN Reason: Pharmacy to dose Nystatin (Mycostatin Powder) 0 gm TOP PRN PRN PRN Reason: . Ondansetron HCl (Zofran Odt) 4 mg PO Q6H PRN PRN Reason: Nausea/Vomiting Ondansetron HCl (Zofran) 4 mg IVP Q6H PRN PRN Reason: Nausea/Vomiting [Dexmethylphenidate (Hcl] 5 Mg) 0 each PO BID [facility] Pindolol (Visken) 5 mg PO BID [facility] Quetiapine Fumarate (Seroquel) 200 mg PO HS [facility] Simvastatin (Zocor) 10 mg PO HS [facility] Sodium Bicarbonate (Bicarbonate, Sodium) 1,300 mg PO BID [facility] Sodium Chloride (Flush - Normal Saline) 10 ml IVF Q12HR [facility] Last Admin: 06/18/18 11:03 Dose: 10 ml Sodium Chloride (Flush - Normal Saline) 10 ml IVF PRN PRN PRN Reason: Saline Flush
--- NOTE | 2018-06-18 17:09 | PDOC.EVN ---
Event Note - Event Note Event Note: 16:50-17:08 hours jun 18, 2018. Discussed with patient's mother over the telephone. Updated her re: aspiration risk. Discussed PEG tube placement. Pt continues to be Full Code. Patient's mother is agreeable to PEG tube placement. Will consult gastroenterology.
[2018-06-18] MEDS ORDERED: lamoTRIgine 100 MG TAB PO SCH (21:00)
[2018-06-18] MEDS ORDERED: Gabapentin 100 MG CAP PO SCH (21:00)
[2018-06-18] MEDS ORDERED: Simvastatin 5 MG TAB PO SCH (21:00)
[2018-06-18] MEDS ORDERED: Sodium Bicarbonate Tab 325 MG TAB PO SCH (21:00)
[2018-06-18] MEDS: Haloperidol Lactate 5 MG/ML VIAL IM PRN (22:47)
[2018-06-19] MEDS: Levothyroxine Sodium 25 MCG TAB PO SCH (04:46)
[2018-06-19 05:05] LABS: #Eosinphils 0.2 thou/uL (0.0-0.7); #Lymphocytes 1.6 thou/uL (1.20-3.40); #Neutrophils 9.2 thou/uL (1.40-6.50); %Basophils 0.3 % (0.0-1.0); %Eosinophils 1.7 % (0.0-10.0); %Lymphocytes 13.7 % (21.0-51.0); %Monocytes 8.3 % (0.0-10.0); Hemoglobin 9.6 g/dL (12.0-16.0); Mean Corpuscular HGB CONC 32.2 g/dL (32.0-36.0); Mean Corpuscular Hemoglobin 31.7 pg (27.0-31.0); Mean Corpuscular Volume 98.4 fL (78.0-98.0); Mean Platelet Volume 11.3 fL (7.4-10.4); Platelet Count 162 thou/uL (130-400); RBC Distribution Width 13.3 % (11.5-14.5); Red Blood Cell (RBC) Count 3.02 mill/uL (4.20-5.40)
[2018-06-19] MEDS: Piperacillin/Tazobactam 2.25 GM in Sodium Chloride 0.9% 100 ML IVPB SCH ×5 (05:26→21:56)
[2018-06-19 05:36] LABS: Anion Gap 14 mmol/L (10-20); BUN (Urea Nitrogen) 21 mg/dL (9.8-20.1); Calc. Creatinine Clearance 32 mL/min (70-130); Calcium 8.9 mg/dL (7.8-10.44); Carbon Dioxide 21 mmol/L (23-31); Chloride 118 mmol/L (98-107); Estimated GFR-MDRD 41; Glucose 244 mg/dL (80-115); Potassium 3.3 mmol/L (3.5-5.1); Sodium 150 mmol/L (136-145)
[2018-06-19] MEDS ORDERED: Dextrose 5% in Water 1,000 ML IV SCH (07:45)
[2018-06-19] MEDS: Dextrose 5% in Water 1,000 ML IV SCH ×2 (08:30→17:48)
--- NOTE | 2018-06-19 08:47 | PRG ---
DATE OF SERVICE: 06/19/2018 SUBJECTIVE: A 68-year-old female, who appears to be in no distress. This morning, saturations 100% on 3 L, temperature 99, blood pressure 158/73. She is still n.p.o. because of dysphagia, unable to swallow and aspirate. GI was consulted to insert a PEG hopefully done today. OBJECTIVE: CHEST: Decreased breath sounds. No wheezing. CARDIAC: Normal S1, S2. No gallop. ABDOMEN: No mass. LABORATORY DATA: White count 36748, H and H are unremarkable. BUN and creatinine 10 and 1.2, sodium 150. IMPRESSION: 1. Dysphagia. 2. Recurrent aspiration. 3. Pneumonia. PLAN: Once a PEG is inserted, I would discontinue the Zosyn. Otherwise, continue supportive care. Minimum medication. We will follow. Job ID: [id number]
--- NOTE | 2018-06-19 09:01 | PRG ---
DATE OF SERVICE: 06/19/2018 SUBJECTIVE: Patient was seen and examined at bedside and overnight events noted. Patient denies any shortness of breath or chest pain or palpitation. No history of nausea or vomiting or diarrhea or fever or chills or cramps. OBJECTIVE: GENERAL: This is an elderly female, in no acute distress. VITAL SIGNS: Temperature 99.3, pulse 81, respiratory rate 22, blood pressure 158/73. HEENT: Atraumatic, normocephalic. Oral mucosa is moist NECK: Supple. CARDIOVASCULAR: S1, S2 heard. Rate and rhythm regular. RESPIRATORY: Clear to auscultation. GASTROINTESTINAL: Abdomen is soft. MUSCULOSKELETAL: No tenderness. No edema. DERMATOLOGIC: No skin rash. NEUROLOGIC: Alert and awake and oriented X3. No focal neurologic deficits. Moving all the extremities. PSYCHIATRIC: Mood and affect normal. LABORATORY DATA: Potassium is 3.3, sodium is 150, BUN is 21, creatinine is 1.2. ASSESSMENT AND PLAN: 1. Acute kidney injury, renal function is getting better. 2. Metabolic acidosis. Better. We will stop bicarbonate given the hypernatremia. 3. Hypernatremia with hyperchloremia, we will add D5W. 4. Hypokalemia, replace. 5. Hyperglycemia, continue sliding scale insulin, monitor. 6. Edema, controlled. 7. Hypertension. 8. Anemia, currently seems to be chronic. 9. We will start on D5W. The patient is not able to have oral free water intake. I talk with the nurse, once she gets the PEG tube, might be able to hydrate her better. We will continue D5 water. Monitor blood sugar and have insulin coverage for it. Job ID: [id number]
[2018-06-19] MEDS: Enoxaparin Sodium 40 MG/0.4 ML SYRINGE SC SCH (10:57)
[2018-06-19] MEDS: Potassium Chloride 40 MEQ in Sodium Chloride 0.9% 250 ML 250 ML IVPB SCH ×2 (10:58→11:05)
[2018-06-19] MEDS: Acetaminophen 650 MG Suppository PR PRN (11:00)
[2018-06-19] MEDS: HumaLOG 300 UNITS/3 ML VIAL SC PRN ×2 (11:22→17:44)
--- NOTE | 2018-06-19 13:43 | PDOC.PN ---
- Subjective Encounter Start Date: 06/19/18 Encounter Start Time: 08:20 Pt seen for followup re:pneumonia. More alert, speaking. Reports cough. - Objective Resuscitation Status - Order Detail: 06/17/18 05:36 Resuscitation Status Routine Resuscitation Status: FULL: Full Resuscitation MAR Reviewed: Yes Vital Signs & Weight: Vital Signs (12 hours) Temp Pulse Resp BP Pulse Ox 06/19/18 11:27 97.6 F 85 20 132/62 100 06/19/18 08:53 98 06/19/18 08:51 81 12 06/19/18 08:30 100 06/19/18 08:23 97.5 F L 83 16 142/70 H 100 06/19/18 03:20 99.3 F 81 20 158/73 H 100 Weight Admit Weight 106 lb 4.8 oz Weight 106 lb 4.8 oz Most Recent Monitor Data Heart Rate from ECG 83 NIBP 98/55 NIBP BP-Mean 69 Respiration from ECG 13 SpO2 86 I&O: 06/18/18 06/19/18 06/20/18 06:59 06:59 06:59 Intake Total 1460 200 Output Total 3 Balance 1457 200 Result Diagrams: 06/19/18 04:14 06/19/18 04:14 Additional Labs: Accuchecks 06/19/18 06/19/18 06/18/18 10:34 05:58 20:55 POC Glucose 323 H 239 H 235 H 06/18/18 16:47 POC Glucose 244 H EKG Reviewed by me: Yes (Tele: NSR) Phys Exam - Physical Examination Frail HEENT: moist MMs, sclera anicteric, oral pharynx no lesions, 2+ tonsils Neck: no nodes, no JVD, supple, full ROM crackles r base Cardiovascular: RRR, no rub S1, s2 Gastrointestinal: soft, non-tender, no distention, positive bowel sounds Neurological: moves all 4 limbs Psychiatric: normal affect Deviation from normal: Oriented to person and place, not to time Dx/Plan (1) Pneumonia Code(s): J18.9 - PNEUMONIA, UNSPECIFIED ORGANISM Status: Acute Qualifiers: Pneumonia type: aspiration pneumonia Comment: improving, continue IV Zosyn. Family interested in PEG tube. (2) Acute worsening of stage 3 chronic kidney disease Code(s): N18.3 - CHRONIC KIDNEY DISEASE, STAGE 3 (MODERATE) Status: Acute Comment: Improving (3) GERD (gastroesophageal reflux disease) Code(s): K21.9 - GASTRO-ESOPHAGEAL REFLUX DISEASE WITHOUT ESOPHAGITIS Status: Chronic Comment: stable (4) Hypothyroidism Code(s): E03.9 - HYPOTHYROIDISM, UNSPECIFIED Status: Chronic Comment: stable (5) Septic shock Code(s): A41.9 - SEPSIS, UNSPECIFIED ORGANISM; R65.21 - SEVERE SEPSIS WITH SEPTIC SHOCK Status: Resolved - Plan * . Review of Systems - Review of Systems Constitutional: negative: fever, chills, sweats, weakness, malaise Respiratory: Cough, Sputum. negative: Dry, Shortness of Breath, Hemoptysis, SOB with Excertion, Pleuritic Pain, Wheezing Cardiovascular: negative: chest pain, palpitations, orthopnea, paroxysmal nocturnal dyspnea, edema, light headedness Gastrointestinal: negative: Nausea, Vomiting, Abdominal Pain, Diarrhea, Constipation, Melena, Hematochezia Genitourinary: negative: Dysuria, Frequency, Incontinence, Hematuria, Retention Skin: negative: Rash, Lesions, Jeffy, Bruising - Medications/Allergies Allergies/Adverse Reactions: Allergies Allergy/AdvReac Type Severity Reaction Status Date / Time sulfamethoxazole Allergy Verified 05/29/18 19:50 [From Bactrim] trimethoprim [From Bactrim] Allergy Verified 05/29/18 19:50 Medications: Current Medications Acetaminophen (Tylenol) 650 mg AL Q6H PRN PRN Reason: Headache/Fever or Pain Last Admin: 06/19/18 11:00 Dose: 650 mg Albuterol/Ipratropium (Duoneb) 3 ml NEB [id number] [facility] Last Admin: 06/19/18 08:51 Dose: 3 ml Dextrose/Water (Dextrose 50%) 25 gm SLOW IVP PRN PRN PRN Reason: Hypoglycemia Enoxaparin Sodium (Lovenox) 40 mg SC 0900 [facility] Last Admin: 06/19/18 10:57 Dose: 40 mg Glucagon (Glucagon) 1 mg IM PRN PRN PRN Reason: Hypoglycemia Haloperidol Lactate (Haldol) 5 mg IM Q6H PRN PRN Reason: Agitation Last Admin: 06/18/18 22:47 Dose: 5 mg Norepinephrine Bitartrate (Levophed) 250 mls @ 0 mls/hr IVPB INF [facility]; Protocol Dextrose/Water (D5w) 1,000 mls @ 0 mls/hr IV .Q0M PRN PRN Reason: Hypoglycemia Piperacillin Sod/Tazobactam (Sod 2.25 gm/ Sodium Chloride) 100 mls @ 200 mls/ hr IVPB 0500,1100,1700,2300 [facility] Last Admin: 06/19/18 11:03 Dose: 100 mls Dextrose/Water (D5w) 1,000 mls @ 100 mls/hr IV .Q10H [facility] Last Admin: 06/19/18 08:30 Dose: 1,000 mls Potassium Chloride 40 meq/ (Sodium Chloride) 270 mls @ 67.5 mls/hr IVPB 1100 [facility] Stop: 06/19/18 15:00 Last Admin: 06/19/18 11:05 Dose: 270 mls Insulin Human Lispro (Humalog) 0 units SC .MILD SLIDING SCALE PRN PRN Reason: Mild Correctional Scale Last Admin: 06/19/18 11:22 Dose: 5 unit Miscellaneous Medication (Pharmacy To Dose) 1 each IVPB PRN PRN PRN Reason: Pharmacy to dose Nystatin (Mycostatin Powder) 0 gm TOP PRN PRN PRN Reason: . Sodium Chloride (Flush - Normal Saline) 10 ml IVF Q12HR [facility] Last Admin: 06/19/18 08:42 Dose: 10 ml Sodium Chloride (Flush - Normal Saline) 10 ml IVF PRN PRN PRN Reason: Saline Flush
--- NOTE | 2018-06-19 14:32 | PQF ---
MADELYNSHANIA BLANCO FAITH TAPIAHIREN [id number] [facility] [id number] CLINICAL DOCUMENTATION IMPROVEMENT CLARIFICATION FORM: ICD-10 Updated PLEASE DO AN ADDENDUM TO THE PROGRESS NOTE WITH ANY DOCUMENTATION UPDATES OR ADDITIONS AND CARRY THROUGH TO DC SUMMARY. THANK YOU. DATE: 06/19/2018 ATTN: DR. TAPIA Please exercise your independent, professional judgment in responding to the clarification form. Clinical indicators are provided on the bottom of this form for your review Please check appropriate box(s): [ ] Acute Metabolic Encephalopathy in the setting of sepsis [ ] Acute Metabolic Encephalopathy; multifactorial [ ] Transient Alteration of Awareness [ ] Other diagnosis [ ] Unable to determine In addition, please specify: Present on Admission (POA): [ ] Yes [ ] No [ ] Unable to determine For continuity of documentation, please document condition throughout progress notes and discharge summary. Thank You. CLINICAL INDICATORS - SIGNS / SYMPTOMS / LABS *06/17-ER: Traige note states,.. AMS starting yesterday, pt normally AOx4 and independent ADLs. Found to be hypoxic tonight requiring O2. Cachectic. *06/17-H&P: Unable to obtain ROS completely since the patient is confused. Psych exam-Unable to explore, the pt is confused. *Diagnoses this admission include: Sepsis with Septic Shock. Acute Respiratory Failure with Hypoxia. Aspiration PNA. *06/19-PN: More alert, speaking. Oriented to person and place, not to time. RISK FACTORS *Infectious process-Sepsis, Septic Shock, Aspiration PNA, Acute Respiratory Failure with Hypoxia, DERIK. *Electrolyte imbalance-Hyponatremia, Hypokalemia. *Hyperglycemia in Diabetes Mellitus - Glucose 589. TREATMENTS *IVFs/D-5, Insulin *Potassium IV *Levophed IV *Zosyn IV *Correction of electrolyte imbalances *Treating underlying cause Thank you, Crystal (This form is maintained as a part of the permanent medical record) 2015 [employer]. All Rights Reserved Crystal Wyman RN, CDIS [email or web address] [phone] MTDD
[2018-06-19] MEDS: Haloperidol Lactate 5 MG/ML VIAL IM PRN (21:57)
--- NOTE | 2018-06-20 02:11 | CON ---
DATE OF CONSULTATION: 06/19/2018 REASON FOR CONSULTATION: Dysphagia. CONSULTING PHYSICIAN: Dr. Mark Hall. HISTORY OF PRESENT ILLNESS: The patient is a 68-year-old female with past medical history of restless legs syndrome, hypothyroidism, and renal failure, who was initially brought to the hospital after having acute change in her mental status while in the senior living. Upon admission to the ER, she was noted to have severe hypoxia as well as hypotension that required the patient to be placed in the ICU and was ultimately started on pressor support. Given her recent history of aspiration pneumonia from a prior hospitalization, this was on the working diagnosis as to the causative etiology for her change in status. With more conservative management and broad spectrum antibiotics, she responded well to conservative therapy and had been doing well and was ultimately discharged from the ICU. However, evaluation by the speech pathology service with a bedside swallow study deemed the patient to have significant oropharyngeal dysphagia with ankur aspiration, most likely contributing to her admitting diagnoses. At this time, the patient states that she is doing well with no apparent problems or acute events overnight. She states that she denies any nausea, vomiting, fever, chills, GI bleeding, diarrhea, constipation, or abdominal pain. REVIEW OF SYSTEMS: A 10-category review of systems was obtained with all responses negative except for the pertinent positives as listed in the HPI. PAST MEDICAL HISTORY: As per HPI. PAST SURGICAL HISTORY: 1. Cholecystectomy. 2. x4. 3. Hysterectomy. 4. Right femur surgery. FAMILY HISTORY: Denies any GI malignancies. SOCIAL HISTORY: Denies any tobacco, alcohol, or illicit drug use. OUTPATIENT MEDICATIONS: Reviewed. ALLERGIES: BACTRIM. PHYSICAL EXAMINATION: VITAL SIGNS: Temperature 98.5, pulse 80, blood pressure 120/67, respiratory rate 16, saturating 100% on 3 L nasal cannula. GENERAL: The patient was lying in bed, in no acute distress. Alert and oriented x3. NECK: Supple. No JVD or scleral icterus noted. HEENT: Normocephalic, atraumatic. CARDIOVASCULAR: Regular rate and rhythm with no discernible murmurs, gallops, or rubs. RESPIRATORY: Diminished breath sounds were heard in the bilateral lower lung bases, but did exhibit poor inspiratory effort. Clear to auscultation in the upper lung crow. ABDOMEN: Normoactive bowel sounds. Soft, nontender, nondistended. EXTREMITIES: No cyanosis, clubbing, or edema. LABORATORY DATA: CBC with a white blood cell count of 12, hemoglobin 9.6, hematocrit 29.7, platelets 162. Chemistry with a sodium of 150, potassium 3.3, chloride 118, CO2 of 21, BUN 21, creatinine 1.29, glucose 244. IMAGING DATA: Chest x-ray obtained on June 17, 2018, showed chronic interstitial lung disease without any acute cardiopulmonary process. ASSESSMENT AND PLAN: The patient is a 68-year-old female with past medical history of restless legs syndrome, hypothyroidism, renal failure and more recently aspiration pneumonia, initially presenting with sepsis believed to be from aspiration pneumonia and significant oropharyngeal dysphagia seen on bedside swallow study. Oropharyngeal dysphagia. The patient is presenting with a recent history of aspiration pneumonia for which she was ultimately discharged from the hospital. However, she was readmitted to the hospital on June 17, 2018 with significant tachycardia, hypotension and hypoxia consistent with a repeat episode of aspiration pneumonia. She was initially transferred to the ICU and was placed on pressor support and responded to IV fluids and broad-spectrum antibiotics and has improved during the course of this hospitalization. Currently doing well and is able to interact and is alert, oriented x3. However, she does have a bedside swallow study obtained on June 18, which showed that she is not safe for any consistency at this time. RECOMMENDATIONS: 1. We will continue patient on n.p.o. status given that she failed her swallow study per speech pathology evaluation. 2. We will plan for EGD with PEG tube placement tomorrow morning. 3. Continue antibiotic support for aspiration pneumonia. 4. We will continue to follow. 5. Please call with any questions. Job ID: [id number]
[2018-06-20] MEDS: Piperacillin/Tazobactam 2.25 GM in Sodium Chloride 0.9% 100 ML IVPB SCH ×4 (04:25→22:06)
[2018-06-20] MEDS: Dextrose 5% in Water 1,000 ML IV SCH ×2 (04:25→09:05)
[2018-06-20] MEDS: Acetaminophen 650 MG Suppository PR PRN ×2 (05:55→14:12)
[2018-06-20 06:23] LABS: #Eosinphils 0.2 thou/uL (0.0-0.7); #Lymphocytes 1.9 thou/uL (1.20-3.40); #Monocytes 0.7 thou/uL (0.11-0.59); #Neutrophils 7.8 thou/uL (1.40-6.50); %Basophils 0.3 % (0.0-1.0); %Eosinophils 2.3 % (0.0-10.0); %Lymphocytes 17.3 % (21.0-51.0); %Monocytes 6.8 % (0.0-10.0); %Neutrophils 73.2 % (42.0-75.0); Hemoglobin 9.2 g/dL (12.0-16.0); Mean Corpuscular HGB CONC 32.3 g/dL (32.0-36.0); Mean Corpuscular Hemoglobin 31.8 pg (27.0-31.0); Mean Corpuscular Volume 98.6 fL (78.0-98.0); Mean Platelet Volume 10.6 fL (7.4-10.4); Platelet Count 156 thou/uL (130-400); RBC Distribution Width 13.4 % (11.5-14.5); Red Blood Cell (RBC) Count 2.89 mill/uL (4.20-5.40); White Blood Cell (WBC) Count 10.7 thou/uL (4.8-10.8)
[2018-06-20 06:35] LABS: Anion Gap 12 mmol/L (10-20); BUN (Urea Nitrogen) 9 mg/dL (9.8-20.1); Calc. Creatinine Clearance 40 mL/min (70-130); Carbon Dioxide 20 mmol/L (23-31); Chloride 110 mmol/L (98-107); Estimated GFR-MDRD 52; Glucose 284 mg/dL (80-115); Sodium 139 mmol/L (136-145)
[2018-06-20] MEDS: DEXMETHYLPHENIDATE HCL 5 MG PO SCH ×3 (07:21→08:20)
[2018-06-20] MEDS: FLUoxetine HCl 20 MG CAP PO SCH (07:22)
[2018-06-20] MEDS: Megestrol Acetate 800 MG/20 ML UDCUP PO SCH (07:22)
[2018-06-20] MEDS: busPIRone HCl 10 MG TAB PO SCH (07:22)
[2018-06-20] MEDS: Aspirin 81 mg Enteric Coated Tablet PO SCH (07:22)
[2018-06-20] MEDS ORDERED: Potassium Chloride 40 MEQ in Premix Bag 1 BAG IVPB SCH (08:30)
[2018-06-20] MEDS: Potassium Chloride 20 MEQ in Premix Bag 1 BAG IVPB SCH ×2 (09:27→15:03)
--- NOTE | 2018-06-20 10:32 | PRG ---
DATE OF SERVICE: 06/20/2018 SUBJECTIVE: Patient was seen and examined at bedside and overnight events noted. Patient denies any shortness of breath or chest pain or palpitation. No history of nausea or vomiting or diarrhea or fever or chills or cramps. OBJECTIVE: GENERAL: This is an elderly female, in no apparent distress. VITAL SIGNS: Temperature 97.8. Pulse 80. Respiratory rate 18. Blood pressure 138/62. HEENT: Atraumatic, normocephalic. Oral mucosa is moist NECK: Supple. CARDIOVASCULAR: S1, S2 heard. Rate and rhythm regular. RESPIRATORY: Clear to auscultation. GASTROINTESTINAL: Abdomen is soft. MUSCULOSKELETAL: No tenderness. No edema. DERMATOLOGIC: No skin rash. NEUROLOGIC: Alert and awake and oriented X3. No focal neurologic deficits. Moving all the extremities. PSYCHIATRIC: Mood and affect normal. LABORATORY DATA: Potassium is 3.0, BUN is 19, creatinine 1.05. ASSESSMENT AND PLAN: 1. Metabolic acidosis, better. 2. Hypernatremia with hyperchloremia. 3. Acute kidney injury, stable. 4. Hypokalemia. 5. Edema, controlled. 6. Hypertension, stable. 7. Anemia. 8. We will reduce the IV fluids. We will replace potassium and we will follow. Encourage oral intake if tolerated. Job ID: [id number]
[2018-06-20] MEDS ORDERED: Midazolam HCl 2 mg/2 ml Vial ONE (11:16)
[2018-06-20] MEDS ORDERED: Ondansetron HCl/PF 4 MG/2 ML Vial IVP PRN (11:17)
[2018-06-20] MEDS ORDERED: Sodium Bicarbonate Tab 325 MG TAB PER TUBE PRN (13:35)
[2018-06-20] MEDS ORDERED: Pancrelipase DR 12000 1 CAP FS PRN (13:35)
--- NOTE | 2018-06-20 15:42 | OP ---
DATE OF PROCEDURE: 06/20/2018 INDICATIONS FOR PROCEDURE: Oropharyngeal dysphagia with aspiration. PROCEDURE PERFORMED: Esophagogastroduodenoscopy with percutaneous endoscopic gastrostomy tube placement. DESCRIPTION OF PROCEDURE: After the risks and benefits of the procedure were explained to the patient's surrogate including risks of bleeding, infection, perforation, reactions to anesthesia, aspiration, and/or pain, informed consent was obtained. The patient was then taken to the endoscopy suite, where deep sedation was administered via propofol and anesthesia support. Once adequate sedation was achieved, the standard gastroscope was introduced into the mouth with intubation of the esophagus, stomach, and the proximal small intestine with the findings listed below. Upon initial completion of the EGD portion of the exam, the PEG tube placement was then performed. This was initiated by confirming PEG tube placement site using one-to-one compression and transillumination. Upon confirmation of the site and marking the site, the patient was prepped and draped in sterile fashion. Using 1% Xylocaine, a small amount of Xylocaine was instilled underneath the skin in a wheal formation. Once that was performed, the needle was then directed perpendicular to the skin and advanced into the stomach with back pressure as it was advanced. Upon withdrawal of the needle, the remainder of the Xylocaine was instilled into the subcutaneous tissues for local anesthesia. Then, using a scalpel, a vertical 1-cm incision was made with minimal bleeding noted. An aspiration needle was then advanced through the anesthetized tract and into the stomach, at which point, a guidewire was advanced through the catheter and retrieved via the endoscope with a snare. The guidewire was then retracted back through the esophagus now through the mouth, where it was affixed to the percutaneous gastrostomy tube. Then, using a push technique, the gastrostomy tube was advanced into the mouth and through the anterior abdominal wall, where reached its final placement with approximately 5 cm showing at the skin. The tube was then cut to length, and the adapter was placed on the feeding tube. Repeat endoscopy was then performed with evaluation of the gastric lumen showing the PEG tube in adequate position. At that point, all equipment was removed from the patient, and the procedure was terminated. The patient tolerated the procedure well with no immediate perioperative complications. She was transferred to PACU in satisfactory condition. FINDINGS: ESOPHAGUS: Normal-appearing mucosa was seen in the proximal, mid, and distal esophagus; however, upon initial intubation, there was a small amount of retained liquid and solid food, that was easily suctioned out. There was no evidence of erosions, ulcerations, mass lesions, or active/recent bleeding. STOMACH: Normal-appearing mucosa was seen in the gastric cardia, fundus, body, greater curvature, antrum, and incisura. There was no evidence of erosions, ulcerations, mass lesions, or active/recent bleeding. The percutaneous gastrostomy tube was placed at the junction between the body and the antrum with the description on that part of the procedure as described above. DUODENUM: Normal-appearing mucosa was seen in both the duodenal bulb and the second portion of the duodenum. There was no evidence of erosions, ulcerations, mass lesions, or active/recent bleeding. IMPRESSION: 1. Normal upper endoscopy. 2. Successful placement of a [employer] 20-[place] percutaneous gastrostomy tube. RECOMMENDATIONS: 1. We would hold off on using the tube for approximately the next 6 hours to evaluate for any postprocedural complications. 2. We would consult Dietary Services for recommendations regarding tube feeds and caloric requirement for this particular patient. 3. We would maintain protocol for proper PEG tube care. 4. We would refrain from placing any dressings or objects between the external bumper and the skin. 5. Pain control per primary team. We will continue to follow. Please call with any questions. Job ID: [id number]
--- NOTE | 2018-06-20 16:57 | PDOC.PN ---
- Subjective Encounter Start Date: 06/20/18 Encounter Start Time: 08:00 Pt seen for followup re: pneumonia. Says she feels better. - Objective Resuscitation Status - Order Detail: 06/17/18 05:36 Resuscitation Status Routine Resuscitation Status: FULL: Full Resuscitation MAR Reviewed: Yes Vital Signs & Weight: Vital Signs (12 hours) Temp Pulse Resp BP Pulse Ox 06/20/18 13:33 74 16 06/20/18 12:45 97.8 F 81 18 135/62 96 06/20/18 07:51 97.8 F 80 18 132/62 100 06/20/18 07:50 95 06/20/18 07:46 84 20 98 Weight Admit Weight 106 lb 4.8 oz Weight 106 lb 4.8 oz Most Recent Monitor Data Heart Rate from ECG 83 NIBP 98/55 NIBP BP-Mean 69 Respiration from ECG 13 SpO2 86 I&O: 06/19/18 06/20/18 06/21/18 06:59 06:59 06:59 Intake Total 200 1450 Balance 200 1450 Result Diagrams: 06/20/18 05:47 06/20/18 05:47 Additional Labs: Accuchecks 06/20/18 06/19/18 06/19/18 05:42 20:29 16:49 POC Glucose 277 H 216 H 266 H EKG Reviewed by me: Yes (Tele: NSR) Phys Exam - Physical Examination Constitutional: NAD HEENT: moist MMs Neck: supple Respiratory: clear to auscultation bilateral Cardiovascular: RRR Gastrointestinal: soft Neurological: moves all 4 limbs Psychiatric: normal affect Dx/Plan (1) Pneumonia Code(s): J18.9 - PNEUMONIA, UNSPECIFIED ORGANISM Status: Acute Qualifiers: Pneumonia type: aspiration pneumonia Comment: improving, continue IV Zosyn. Pt to have PEG tube today. (2) Acute metabolic encephalopathy Code(s): G93.41 - METABOLIC ENCEPHALOPATHY Status: Acute Comment: Improving , likely secondary to sepsis from aspiration pneumonia. Present on admission. (3) GERD (gastroesophageal reflux disease) Code(s): K21.9 - GASTRO-ESOPHAGEAL REFLUX DISEASE WITHOUT ESOPHAGITIS Status: Chronic Comment: stable (4) Hypothyroidism Code(s): E03.9 - HYPOTHYROIDISM, UNSPECIFIED Status: Chronic Comment: stable (5) Oropharyngeal dysphagia Code(s): R13.12 - DYSPHAGIA, OROPHARYNGEAL PHASE Status: Chronic Comment: for PEG tube (6) Septic shock Code(s): A41.9 - SEPSIS, UNSPECIFIED ORGANISM; R65.21 - SEVERE SEPSIS WITH SEPTIC SHOCK Status: Resolved (7) Acute worsening of stage 3 chronic kidney disease Code(s): N18.3 - CHRONIC KIDNEY DISEASE, STAGE 3 (MODERATE) Status: Resolved - Plan * . Review of Systems - Review of Systems Cardiovascular: negative: chest pain, palpitations, orthopnea, paroxysmal nocturnal dyspnea, edema, light headedness Gastrointestinal: negative: Nausea, Vomiting, Abdominal Pain, Diarrhea, Constipation, Melena, Hematochezia - Medications/Allergies Allergies/Adverse Reactions: Allergies Allergy/AdvReac Type Severity Reaction Status Date / Time sulfamethoxazole Allergy Verified 05/29/18 19:50 [From Bactrim] trimethoprim [From Bactrim] Allergy Verified 05/29/18 19:50 Medications: Current Medications Acetaminophen (Tylenol) 650 mg NC Q6H PRN PRN Reason: Headache/Fever or Pain Last Admin: 06/20/18 14:12 Dose: 650 mg Albuterol/Ipratropium (Duoneb) 3 ml NEB [id number] OSORIO Last Admin: 06/20/18 13:33 Dose: 3 ml Lipase/Protease/Amylase ([place] [id number]) 1 cap FS .PER PROTOCOL PRN PRN Reason: TUBE OCCLUSION PROTOCOL Dextrose/Water (Dextrose 50%) 25 gm SLOW IVP PRN PRN PRN Reason: Hypoglycemia Enoxaparin Sodium (Lovenox) 40 mg SC 0900 [facility] Last Admin: 06/19/18 10:57 Dose: 40 mg Glucagon (Glucagon) 1 mg IM PRN PRN PRN Reason: Hypoglycemia Haloperidol Lactate (Haldol) 5 mg IM Q6H PRN PRN Reason: Agitation Last Admin: 06/19/18 21:57 Dose: 5 mg Norepinephrine Bitartrate (Levophed) 250 mls @ 0 mls/hr IVPB INF OSORIO; Protocol Dextrose/Water (D5w) 1,000 mls @ 0 mls/hr IV .Q0M PRN PRN Reason: Hypoglycemia Piperacillin Sod/Tazobactam (Sod 2.25 gm/ Sodium Chloride) 100 mls @ 200 mls/ hr IVPB 0500,1100,1700,2300 [facility] Last Admin: 06/20/18 13:15 Dose: Not Given Dextrose/Water (D5w) 1,000 mls @ 50 mls/hr IV .Q20H [facility] Last Admin: 06/20/18 09:05 Dose: Not Given Insulin Human Lispro (Humalog) 0 units SC .MILD SLIDING SCALE PRN PRN Reason: Mild Correctional Scale Last Admin: 06/19/18 17:44 Dose: 4 unit Miscellaneous Medication (Pharmacy To Dose) 1 each IVPB PRN PRN PRN Reason: Pharmacy to dose Nystatin (Mycostatin Powder) 0 gm TOP PRN PRN PRN Reason: . Sodium Bicarbonate (Bicarbonate, Sodium) 650 mg PER TUBE .PER PROTOCOL PRN PRN Reason: ENTERAL TUBE OCCLUSION Sodium Chloride (Flush - Normal Saline) 10 ml IVF Q12HR [facility] Last Admin: 06/20/18 09:05 Dose: Not Given Sodium Chloride (Flush - Normal Saline) 10 ml IVF PRN PRN PRN Reason: Saline Flush
[2018-06-20] MEDS ORDERED: Ondansetron PF 4 MG/2 ML Vial SLOW IVP PRN (19:06)
[2018-06-20] MEDS ORDERED: Ketorolac Tromethamine 30 MG/ML VIAL IVP SCH (19:15)
[2018-06-20] MEDS: Haloperidol Lactate 5 MG/ML VIAL IM PRN (22:06)
[2018-06-20] MEDS: traMADol HCl 50 MG TAB PER TUBE PRN (23:51)
[2018-06-21] MEDS ORDERED: Morphine 4 MG/ML VIAL SLOW IVP SCH (01:30)
[2018-06-21] MEDS: Dextrose 5% in Water 1,000 ML IV SCH (04:57)
[2018-06-21] MEDS: Haloperidol Lactate 5 MG/ML VIAL IM PRN (04:58)
[2018-06-21] MEDS: Piperacillin/Tazobactam 2.25 GM in Sodium Chloride 0.9% 100 ML IVPB SCH (04:58)
[2018-06-21 07:02] LABS: #Basophils 0.1 thou/uL (0.0-0.2); #Eosinphils 0.3 thou/uL (0.0-0.7); #Monocytes 0.9 thou/uL (0.11-0.59); #Neutrophils 7.9 thou/uL (1.40-6.50); %Basophils 0.5 % (0.0-1.0); %Lymphocytes 17.5 % (21.0-51.0); %Monocytes 8.1 % (0.0-10.0); %Neutrophils 70.9 % (42.0-75.0); Hemoglobin 9.7 g/dL (12.0-16.0); Mean Corpuscular HGB CONC 31.2 g/dL (32.0-36.0); Mean Corpuscular Hemoglobin 30.9 pg (27.0-31.0); Mean Corpuscular Volume 99.2 fL (78.0-98.0); Mean Platelet Volume 10.3 fL (7.4-10.4); Platelet Count 149 thou/uL (130-400); RBC Distribution Width 13.4 % (11.5-14.5); Red Blood Cell (RBC) Count 3.13 mill/uL (4.20-5.40); White Blood Cell (WBC) Count 11.2 thou/uL (4.8-10.8)
[2018-06-21 07:17] LABS: Anion Gap 14 mmol/L (10-20); BUN (Urea Nitrogen) 9 mg/dL (9.8-20.1); Calc. Creatinine Clearance 39 mL/min (70-130); Carbon Dioxide 18 mmol/L (23-31); Chloride 110 mmol/L (98-107); Estimated GFR-MDRD 51; Glucose 131 mg/dL (80-115); Potassium 3.8 mmol/L (3.5-5.1); Sodium 138 mmol/L (136-145)
[2018-06-21] MEDS: traMADol HCl 50 MG TAB PER TUBE PRN ×4 (09:30→23:43)
[2018-06-21] MEDS: Acetaminophen 650 MG Suppository PR PRN (09:31)
[2018-06-21] MEDS: Enoxaparin Sodium 40 MG/0.4 ML SYRINGE SC SCH (09:32)
--- NOTE | 2018-06-21 10:32 | PDOC.PN ---
- Subjective Encounter Start Date: 06/21/18 Encounter Start Time: 08:20 Pt seen for followup re: pneumonia. Says she feels better. Did not sleep well. - Objective Resuscitation Status - Order Detail: 06/17/18 05:36 Resuscitation Status Routine Resuscitation Status: FULL: Full Resuscitation MAR Reviewed: Yes Vital Signs & Weight: Vital Signs (12 hours) Temp Pulse Resp BP Pulse Ox 06/21/18 08:48 82 16 98 06/21/18 07:28 97.0 F L 67 18 111/58 L 96 06/21/18 04:00 98.0 F 80 18 102/57 L 100 06/21/18 00:46 74 14 99 06/20/18 23:27 76 18 125/62 98 Weight Admit Weight 106 lb 4.8 oz Weight 106 lb 4.8 oz Most Recent Monitor Data Heart Rate from ECG 83 NIBP 98/55 NIBP BP-Mean 69 Respiration from ECG 13 SpO2 86 I&O: 06/20/18 06/21/18 06/22/18 06:59 06:59 06:59 Intake Total 1450 1600 60 Balance 1450 1600 60 Result Diagrams: 06/21/18 06:27 06/21/18 06:27 Additional Labs: Accuchecks 06/21/18 06/20/18 06/20/18 04:57 20:36 17:06 POC Glucose 136 H 133 H 138 H EKG Reviewed by me: Yes (Tele: NSR) Phys Exam - Physical Examination Constitutional: NAD HEENT: moist MMs Neck: supple Respiratory: clear to auscultation bilateral Cardiovascular: RRR Gastrointestinal: soft Neurological: moves all 4 limbs Psychiatric: normal affect Dx/Plan (1) Pneumonia Code(s): J18.9 - PNEUMONIA, UNSPECIFIED ORGANISM Status: Acute Qualifiers: Pneumonia type: aspiration pneumonia Comment: improving, switch to oral antibiotic. (2) Acute metabolic encephalopathy Code(s): G93.41 - METABOLIC ENCEPHALOPATHY Status: Acute Comment: Improving (3) GERD (gastroesophageal reflux disease) Code(s): K21.9 - GASTRO-ESOPHAGEAL REFLUX DISEASE WITHOUT ESOPHAGITIS Status: Chronic Comment: stable (4) Hypothyroidism Code(s): E03.9 - HYPOTHYROIDISM, UNSPECIFIED Status: Chronic Comment: stable (5) Oropharyngeal dysphagia Code(s): R13.12 - DYSPHAGIA, OROPHARYNGEAL PHASE Status: Chronic Comment: s/ p PEG tube (6) Septic shock Code(s): A41.9 - SEPSIS, UNSPECIFIED ORGANISM; R65.21 - SEVERE SEPSIS WITH SEPTIC SHOCK Status: Resolved (7) Acute worsening of stage 3 chronic kidney disease Code(s): N18.3 - CHRONIC KIDNEY DISEASE, STAGE 3 (MODERATE) Status: Resolved - Plan * . Review of Systems - Review of Systems Respiratory: Cough, Sputum. negative: Shortness of Breath, SOB with Excertion, Pleuritic Pain, Wheezing Cardiovascular: negative: chest pain, palpitations, orthopnea, paroxysmal nocturnal dyspnea, edema, light headedness - Medications/Allergies Allergies/Adverse Reactions: Allergies Allergy/AdvReac Type Severity Reaction Status Date / Time sulfamethoxazole Allergy Verified 05/29/18 19:50 [From Bactrim] trimethoprim [From Bactrim] Allergy Verified 05/29/18 19:50 Medications: Current Medications Acetaminophen (Tylenol) 650 mg MS Q6H PRN PRN Reason: Headache/Fever or Pain Last Admin: 06/21/18 09:31 Dose: 650 mg Albuterol/Ipratropium (Duoneb) 3 ml NEB [id number] [facility] Last Admin: 06/21/18 08:48 Dose: 3 ml Lipase/Protease/Amylase ([place] [id number]) 1 cap FS .PER PROTOCOL PRN PRN Reason: TUBE OCCLUSION PROTOCOL Dextrose/Water (Dextrose 50%) 25 gm SLOW IVP PRN PRN PRN Reason: Hypoglycemia Enoxaparin Sodium (Lovenox) 40 mg SC 0900 [facility] Last Admin: 06/21/18 09:32 Dose: 40 mg Glucagon (Glucagon) 1 mg IM PRN PRN PRN Reason: Hypoglycemia Haloperidol Lactate (Haldol) 5 mg IM Q6H PRN PRN Reason: Agitation Last Admin: 06/21/18 04:58 Dose: 5 mg Norepinephrine Bitartrate (Levophed) 250 mls @ 0 mls/hr IVPB INF OSORIO; Protocol Dextrose/Water (D5w) 1,000 mls @ 0 mls/hr IV .Q0M PRN PRN Reason: Hypoglycemia Piperacillin Sod/Tazobactam (Sod 2.25 gm/ Sodium Chloride) 100 mls @ 200 mls/ hr IVPB 0500,1100,1700,2300 [facility] Last Admin: 06/21/18 04:58 Dose: 100 mls Dextrose/Water (D5w) 1,000 mls @ 50 mls/hr IV .Q20H [facility] Last Admin: 06/21/18 04:57 Dose: 1,000 mls Insulin Human Lispro (Humalog) 0 units SC .MILD SLIDING SCALE PRN PRN Reason: Mild Correctional Scale Last Admin: 06/19/18 17:44 Dose: 4 unit Miscellaneous Medication (Pharmacy To Dose) 1 each IVPB PRN PRN PRN Reason: Pharmacy to dose Nystatin (Mycostatin Powder) 0 gm TOP PRN PRN PRN Reason: . Ondansetron HCl (Zofran) 4 mg SLOW IVP Q6H PRN PRN Reason: Nausea/Vomiting Last Admin: 06/20/18 20:19 Dose: 4 mg Sodium Bicarbonate (Bicarbonate, Sodium) 650 mg PER TUBE .PER PROTOCOL PRN PRN Reason: ENTERAL TUBE OCCLUSION Sodium Chloride (Flush - Normal Saline) 10 ml IVF Q12HR [facility] Last Admin: 06/21/18 09:44 Dose: Not Given Sodium Chloride (Flush - Normal Saline) 10 ml IVF PRN PRN PRN Reason: Saline Flush Tramadol HCl (Ultram) 50 mg PER TUBE Q6H PRN PRN Reason: PAIN SCALE 1-5 Last Admin: 06/21/18 09:30 Dose: 50 mg Tramadol HCl (Ultram) 100 mg PER TUBE Q6H PRN PRN Reason: PAIN SCALE 6-10 Last Admin: 06/20/18 23:51 Dose: 100 mg
[2018-06-21] MEDS ORDERED: Polyethylene Glycol 3350 17 GM Packet PO PRN (10:33)
[2018-06-21] MEDS ORDERED: Milk Of Magnesia 30 ML UDCUP PO PRN (10:33)
[2018-06-21] MEDS ORDERED: Simethicone Chewable 80 MG TAB PO PRN (10:33)
--- NOTE | 2018-06-21 11:47 | PRG ---
DATE OF SERVICE: 06/21/2018 SUBJECTIVE: Today, the patient is complaining of some pain. The nurse tells me the patient's pain medications just got restarted. OBJECTIVE: VITAL SIGNS: Temperature 97.0, pulse 82, respirations 16, O2 saturation 98% on 3 L. HEENT: Bitemporal muscle wasting. NECK: No adenopathy. No JVD. LUNGS: Diminished, but clear breath sounds. CARDIAC: S1 and S2, regular. ABDOMEN: Soft. EXTREMITIES: No edema. LABORATORY DATA: White blood cell count 11.2, hematocrit 31, platelet count 149. Sodium 138, potassium 3.8, chloride 110, CO2 of 18, BUN 9, creatinine 1.1, and glucose 131. ASSESSMENT: 1. Severe protein calorie malnutrition. 2. Underlying chronic obstructive pulmonary disease/pneumonia. 3. Recurrent aspiration. PLAN: The patient has been converted over to oral antibiotics and the Zosyn has been stopped. She will continue breathing treatments. Job ID: [id number]
[2018-06-21] MEDS: Baclofen 10 MG TAB PO SCH ×3 (12:00→23:43)
--- NOTE | 2018-06-21 13:25 | PRG ---
DATE OF SERVICE: 06/21/2018 SUBJECTIVE: Patient was seen and examined at bedside and overnight events noted. Patient denies any shortness of breath or chest pain or palpitation. No history of nausea or vomiting or diarrhea or fever or chills or cramps. OBJECTIVE: GENERAL: This is an elderly female, in no apparent distress. VITAL SIGNS: Temperature 97.8. Heart rate 77. Respiratory rate 19. Blood pressure 122/57. HEENT: Atraumatic, normocephalic. Oral mucosa is moist NECK: Supple. CARDIOVASCULAR: S1, S2 heard. Rate and rhythm regular. RESPIRATORY: Clear to auscultation. GASTROINTESTINAL: Abdomen is soft. MUSCULOSKELETAL: No tenderness. No edema. DERMATOLOGIC: No skin rash. NEUROLOGIC: Alert and awake and oriented X3. No focal neurologic deficits. Moving all the extremities. PSYCHIATRIC: Mood and affect normal. LABORATORY DATA: Potassium is 3.8, sodium is 138, BUN is 19, creatinine is 1.07. ASSESSMENT AND PLAN: 1. Acute kidney injury, stable, much better. 2. Hypokalemia. Replace and monitor. 3. Acidosis, stable. 4. Hypernatremia, better. 5. Hypertension. 6. Anemia of chronic disease. Stop IV fluids. Continue hydration as tolerated. We will follow. Job ID: [id number]
[2018-06-21] MEDS ORDERED: PROPOFOL 200 MG/20 ML VIAL ONE (13:40)
--- NOTE | 2018-06-21 17:25 | PRG ---
DATE OF SERVICE: 06/21/2018 REASON FOR CONSULTATION: Oropharyngeal dysphagia. SUBJECTIVE: The patient did well overnight with no acute events or problems. The percutaneous gastrostomy tube has already started being used with tube feeds already initiated. She did have some increased abdominal pain surrounding the PEG tube site, but upon loosening the bumper, the pain actually improved, although she does still have some soreness at the site. Currently, denies any nausea, vomiting, fevers, chills, hematemesis, hematochezia, or melena. OBJECTIVE: VITAL SIGNS: Temperature 97.8, pulse 78, blood pressure 106/61, respiratory rate 20, and saturating 98% on 3 L nasal cannula. GENERAL: The patient was lying in bed, in no acute distress. Alert and oriented x3. CARDIOVASCULAR: Regular rate and rhythm. RESPIRATORY: Clear to auscultation bilaterally. ABDOMEN: Normoactive bowel sounds. Soft, nondistended. Tenderness around the PEG tube insertion site, but no evidence of increased skin erythema or purulence. EXTREMITIES: No cyanosis, clubbing, or edema. LABORATORY DATA: CBC with a white blood cell count of 11.2, hemoglobin 9.7, hematocrit 31, platelets 149. Chemistry with a sodium of 138, potassium 3.8, chloride 110, CO2 of 18, BUN 9, creatinine 1.07, glucose 131. IMAGING DATA: The patient underwent successful placement of a [employer] 20-[place] percutaneous gastrostomy tube on June 20, 2018, with no immediate perioperative complications. ASSESSMENT AND PLAN: The patient is a 68-year-old female with past medical history of restless legs syndrome, hypothyroidism, renal failure and more recently aspiration pneumonia, presenting with significant oropharyngeal dysphagia requiring placement of PEG tube. Oropharyngeal dysphagia. The patient is presenting with a recent history of aspiration pneumonia for which she was ultimately discharged from the hospital. However, she was readmitted to the hospital on June 17, 2018, with tachycardia, hypotension, hypoxia consistent with a repeat episode of aspiration pneumonia. After a brief stay within the ICU for stabilization of her clinical status, a bedside swallow study was performed which showed that she had significant deficits of swallowing showing that she was safe for any consistency at any time. She ultimately underwent an EGD with percutaneous gastrostomy tube placement on June 20, 2018, with no immediate perioperative complications. She was started on tube feeds later that evening and has been tolerating them since. RECOMMENDATIONS: 1. We would continue the patient on n.p.o. status with tube feeds per dietary protocol. 2. Continue PEG tube care per protocol. We will sign off at this time. Please call with any questions. Job ID: [id number]
[2018-06-21] MEDS: ALPRAZolam 0.25 MG TAB PO SCH (20:12)
[2018-06-21] MEDS: busPIRone HCl 10 MG TAB PO SCH (20:15)
[2018-06-21] MEDS: Cefdinir 300 MG CAP PER TUBE SCH (20:16)
[2018-06-22] MEDS: traMADol HCl 50 MG TAB PER TUBE PRN ×2 (05:56→11:42)
[2018-06-22] MEDS: Baclofen 10 MG TAB PO SCH ×3 (05:56→17:15)
[2018-06-22] MEDS: Pantoprazole 40 MG GRANULES PACKET PER TUBE SCH (08:11)
[2018-06-22] MEDS: Furosemide 20 MG TAB PO SCH (08:12)
[2018-06-22] MEDS: Multivit, Therapeutic 1 TAB PO SCH (08:12)
[2018-06-22] MEDS: Cefdinir 300 MG CAP PER TUBE SCH ×2 (08:12→20:35)
[2018-06-22] MEDS: ALPRAZolam 0.25 MG TAB PO SCH ×2 (08:12→20:35)
[2018-06-22] MEDS: busPIRone HCl 10 MG TAB PO SCH ×2 (08:12→20:35)
[2018-06-22] MEDS: Enoxaparin Sodium 40 MG/0.4 ML SYRINGE SC SCH (08:12)
--- NOTE | 2018-06-22 09:09 | PRG ---
DATE OF SERVICE: 06/22/2018 SUBJECTIVE: This morning, she looks better, less short of breath. OBJECTIVE: VITAL SIGNS: Sats are 91% on room air, respirations 16, temperature 98, and blood pressure 139/69. CHEST: Revealed decreased breath sounds without any wheezing. CARDIAC: Normal S1 and S2. No gallops. ABDOMEN: No masses. ASSESSMENT: 1. Recurrent aspiration secondary to dysphagia, cerebrovascular accident. 2. Status post PEG. PLAN: She was switched over to oral antibiotics. She can probably be transferred back to the correction. Job ID: [id number]
[2018-06-22 09:55] LABS: Anion Gap 14 mmol/L (10-20); BUN (Urea Nitrogen) 12 mg/dL (9.8-20.1); Calc. Creatinine Clearance 38 mL/min (70-130); Calcium 8.9 mg/dL (7.8-10.44); Carbon Dioxide 17 mmol/L (23-31); Chloride 107 mmol/L (98-107); Estimated GFR-MDRD 51; Glucose 271 mg/dL (80-115); Potassium 3.8 mmol/L (3.5-5.1); Sodium 134 mmol/L (136-145)
[2018-06-22 11:19] LABS: Band 3 % (5-11); Eosinophils 1 % (0-10); Hemoglobin 10.6 g/dL (12.0-16.0); Hypochromia SLIGHT = 6-15 cells (100X) (0-5/hpf); Lymphocytes 7 % (21-51); MDiff Complete? YES; Mean Corpuscular HGB CONC 31.6 g/dL (32.0-36.0); Mean Corpuscular Hemoglobin 30.4 pg (27.0-31.0); Mean Corpuscular Volume 96.2 fL (78.0-98.0); Mean Platelet Volume 10.1 fL (7.4-10.4); Monocytes 4 % (0-10); Neutrophil 85 % (42-75); Platelet Count 189 thou/uL (130-400); Platelet Morphology Comment Appears Adequate; Polychromasia SLIGHT = 2-3 cells (100X) (0-2/hpf); RBC Distribution Width 13.7 % (11.5-14.5); Red Blood Cell (RBC) Count 3.48 mill/uL (4.20-5.40)
--- NOTE | 2018-06-22 11:28 | PRG ---
DATE OF SERVICE: 06/22/2018 SUBJECTIVE: A 68-year-old female being seen for acute kidney injury. The patient denies nausea, vomiting, or chest pain. OBJECTIVE: See above. CONSTITUTIONAL: The patient is awake, alert, in no acute distress. VITAL SIGNS: Pulse 93, breathing 16, and blood pressure 131/69. GENERAL APPEARANCE AND MENTAL STATUS: Fair. HEAD/NECK: Normocephalic. Atraumatic. EYES: EOMI. No deformity. EARS: Clear. No ulcers. NOSE: Intact. No lesions. MOUTH: Clear. No discharge. THROAT: Clear. No exudate. LUNGS: Clear. No crackles. CARDIAC: S1, S2. No rub. ABDOMEN: Benign. Bowel sounds positive. GENITALIA/RECTUM: Bello absent. BACK/EXTREMITIES: Edema 0+. NEUROLOGICAL: Alert and motor intact. SKIN: LYMPHATICS: LABORATORY DATA: Reviewed. ASSESSMENT: 1. Stage 3 chronic kidney disease, stable. 2. Hypertension. 3. Hypernatremia, stable. 4. Metabolic acidosis, stable. PLAN: No indication for dialysis. I will sign off. Please reconsult as needed. Job ID: [id number]
[2018-06-22] MEDS: HumaLOG 300 UNITS/3 ML VIAL SC PRN ×2 (11:38→20:37)
[2018-06-22 12:28] LABS: #Eosinphils 0.3 thou/uL (0.0-0.7); #Lymphocytes 2.8 thou/uL (1.20-3.40); #Monocytes 1.4 thou/uL (0.11-0.59); #Neutrophils 20.4 thou/uL (1.40-6.50); %Basophils 0.1 % (0.0-1.0); %Eosinophils 1.1 % (0.0-10.0); %Lymphocytes 11.3 % (21.0-51.0); %Monocytes 5.8 % (0.0-10.0); %Neutrophils 81.7 % (42.0-75.0); Hemoglobin 11.5 g/dL (12.0-16.0); Mean Corpuscular HGB CONC 31.4 g/dL (32.0-36.0); Mean Corpuscular Volume 98.6 fL (78.0-98.0); Mean Platelet Volume 10.1 fL (7.4-10.4); Platelet Count 195 thou/uL (130-400); RBC Distribution Width 13.9 % (11.5-14.5); Red Blood Cell (RBC) Count 3.72 mill/uL (4.20-5.40); White Blood Cell (WBC) Count 24.9 thou/uL (4.8-10.8)
[2018-06-22] MEDS: Haloperidol Lactate 5 MG/ML VIAL IM PRN (12:51)
--- NOTE | 2018-06-22 13:24 | PDOC.PN ---
- Subjective Encounter Start Date: 06/22/18 Encounter Start Time: 11:00 Pt seen for followup re: pneumonia. Feels well, no complaints. - Objective Resuscitation Status - Order Detail: 06/17/18 05:36 Resuscitation Status Routine Resuscitation Status: FULL: Full Resuscitation MAR Reviewed: Yes Vital Signs & Weight: Vital Signs (12 hours) Temp Pulse Resp BP Pulse Ox 06/22/18 10:22 93 L 06/22/18 08:12 91 L 06/22/18 07:41 98.8 F 100 16 131/69 91 L 06/22/18 06:54 75 16 94 L 06/22/18 04:00 97.5 F L 102 H 20 128/71 93 L Weight Admit Weight 106 lb 4.8 oz Weight 106 lb 4.8 oz Most Recent Monitor Data Heart Rate from ECG 83 NIBP 98/55 NIBP BP-Mean 69 Respiration from ECG 13 SpO2 86 I&O: 06/21/18 06/22/18 06/23/18 06:59 06:59 06:59 Intake Total 1600 696 60 Output Total 351 Balance 1600 345 60 Result Diagrams: 06/22/18 12:19 06/22/18 09:25 Additional Labs: Accuchecks 06/22/18 06/21/18 06/21/18 05:00 20:31 17:02 POC Glucose 181 H 149 H 157 H labs reviewed by me Phys Exam - Physical Examination Constitutional: NAD HEENT: moist MMs Neck: supple Respiratory: clear to auscultation bilateral Cardiovascular: RRR Gastrointestinal: soft G-tube Neurological: moves all 4 limbs Psychiatric: normal affect Dx/Plan (1) Pneumonia Code(s): J18.9 - PNEUMONIA, UNSPECIFIED ORGANISM Status: Acute Qualifiers: Pneumonia type: aspiration pneumonia Comment: Leucocytosis worse, add metronidazole for aspiration pneumonia, recheck CBC (2) GERD (gastroesophageal reflux disease) Code(s): K21.9 - GASTRO-ESOPHAGEAL REFLUX DISEASE WITHOUT ESOPHAGITIS Status: Chronic Comment: stable (3) Hypothyroidism Code(s): E03.9 - HYPOTHYROIDISM, UNSPECIFIED Status: Chronic Comment: stable (4) Oropharyngeal dysphagia Code(s): R13.12 - DYSPHAGIA, OROPHARYNGEAL PHASE Status: Chronic Comment: s/ p PEG tube (5) Septic shock Code(s): A41.9 - SEPSIS, UNSPECIFIED ORGANISM; R65.21 - SEVERE SEPSIS WITH SEPTIC SHOCK Status: Resolved (6) Acute worsening of stage 3 chronic kidney disease Code(s): N18.3 - CHRONIC KIDNEY DISEASE, STAGE 3 (MODERATE) Status: Resolved (7) Acute metabolic encephalopathy Code(s): G93.41 - METABOLIC ENCEPHALOPATHY Status: Resolved - Plan * . Review of Systems - Review of Systems Respiratory: negative: Cough, Shortness of Breath, SOB with Excertion, Pleuritic Pain, Wheezing Cardiovascular: negative: chest pain, palpitations, orthopnea, paroxysmal nocturnal dyspnea, edema, light headedness - Medications/Allergies Allergies/Adverse Reactions: Allergies Allergy/AdvReac Type Severity Reaction Status Date / Time sulfamethoxazole Allergy Verified 05/29/18 19:50 [From Bactrim] trimethoprim [From Bactrim] Allergy Verified 05/29/18 19:50 Medications: Current Medications Acetaminophen (Tylenol) 650 mg AR Q6H PRN PRN Reason: Headache/Fever or Pain Last Admin: 06/21/18 09:31 Dose: 650 mg Albuterol/Ipratropium (Duoneb) 3 ml NEB [id number] [facility] Last Admin: 06/22/18 06:54 Dose: 3 ml Alprazolam (Xanax) 0.25 mg PO BID [facility] Last Admin: 06/22/18 08:12 Dose: 0.25 mg Lipase/Protease/[place]ylase ([place] [id number]) 1 cap FS .PER PROTOCOL PRN PRN Reason: TUBE OCCLUSION PROTOCOL Baclofen (Lioresal) 5 mg PO Q6HR [facility] Last Admin: 06/22/18 11:27 Dose: 5 mg Buspirone HCl (Buspar) 30 mg PO BID [facility] Last Admin: 06/22/18 08:12 Dose: 30 mg Cefdinir (Omnicef) 300 mg PER TUBE BID [facility] Last Admin: 06/22/18 08:12 Dose: 300 mg Dextrose/Water (Dextrose 50%) 25 gm SLOW IVP PRN PRN PRN Reason: Hypoglycemia Enoxaparin Sodium (Lovenox) 40 mg SC 0900 [facility] Last Admin: 06/22/18 08:12 Dose: 40 mg Furosemide (Lasix) 20 mg PO DAILY [facility] Last Admin: 06/22/18 08:12 Dose: 20 mg Glucagon (Glucagon) 1 mg IM PRN PRN PRN Reason: Hypoglycemia Haloperidol Lactate (Haldol) 5 mg IM Q6H PRN PRN Reason: Agitation Last Admin: 06/22/18 12:51 Dose: 5 mg Norepinephrine Bitartrate (Levophed) 250 mls @ 0 mls/hr IVPB INF [facility]; Protocol Dextrose/Water (D5w) 1,000 mls @ 0 mls/hr IV .Q0M PRN PRN Reason: Hypoglycemia Insulin Human Lispro (Humalog) 0 units SC .MILD SLIDING SCALE PRN PRN Reason: Mild Correctional Scale Last Admin: 06/22/18 11:38 Dose: 3 unit Magnesium Hydroxide (Milk Of Magnesium) 30 ml PO DAILY PRN PRN Reason: Constipation Metronidazole (Flagyl) 500 mg PO TID [facility] Miscellaneous Medication (Pharmacy To Dose) 1 each IVPB PRN PRN PRN Reason: Pharmacy to dose Multivitamins (Theragran) 1 tab PO DAILY [facility] Last Admin: 06/22/18 08:12 Dose: 1 tab Nystatin (Mycostatin Powder) 0 gm TOP PRN PRN PRN Reason: . Ondansetron HCl (Zofran) 4 mg SLOW IVP Q6H PRN PRN Reason: Nausea/Vomiting Last Admin: 06/20/18 20:19 Dose: 4 mg Pantoprazole Sodium (Protonix) 40 mg PER TUBE DAILY [facility] Last Admin: 06/22/18 08:11 Dose: 40 mg Polyethylene Glycol (Miralax) 17 gm PO DAILY PRN PRN Reason: Constipation Simethicone (Mylicon Chewable) 80 mg PO Q6HR PRN PRN Reason: Indigestion Sodium Bicarbonate (Bicarbonate, Sodium) 650 mg PER TUBE .PER PROTOCOL PRN PRN Reason: ENTERAL TUBE OCCLUSION Sodium Chloride (Flush - Normal Saline) 10 ml IVF Q12HR [facility] Last Admin: 06/22/18 08:13 Dose: 10 ml Sodium Chloride (Flush - Normal Saline) 10 ml IVF PRN PRN PRN Reason: Saline Flush Tramadol HCl (Ultram) 50 mg PER TUBE Q6H PRN PRN Reason: PAIN SCALE 1-5 Last Admin: 06/21/18 14:28 Dose: 50 mg Tramadol HCl (Ultram) 100 mg PER TUBE Q6H PRN PRN Reason: PAIN SCALE 6-10 Last Admin: 06/22/18 11:42 Dose: 100 mg
[2018-06-22] MEDS: metroNIDAZOLE 500 MG TAB PO SCH ×2 (14:04→20:35)
[2018-06-23] MEDS: Baclofen 10 MG TAB PO SCH ×4 (00:24→17:29)
[2018-06-23] MEDS: HumaLOG 300 UNITS/3 ML VIAL SC PRN ×4 (05:41→20:58)
[2018-06-23 08:44] LABS: Hemoglobin 10.9 g/dL (12.0-16.0); Mean Corpuscular HGB CONC 31.8 g/dL (32.0-36.0); Mean Corpuscular Hemoglobin 30.8 pg (27.0-31.0); Mean Corpuscular Volume 96.9 fL (78.0-98.0); Mean Platelet Volume 10.2 fL (7.4-10.4); Platelet Count 223 thou/uL (130-400); RBC Distribution Width 13.8 % (11.5-14.5); Red Blood Cell (RBC) Count 3.54 mill/uL (4.20-5.40); White Blood Cell (WBC) Count 22.6 thou/uL (4.8-10.8)
[2018-06-23] MEDS: Cefdinir 300 MG CAP PER TUBE SCH ×2 (08:51→20:52)
[2018-06-23] MEDS: Furosemide 20 MG TAB PO SCH (08:51)
[2018-06-23] MEDS: Multivit, Therapeutic 1 TAB PO SCH (08:51)
[2018-06-23] MEDS: Enoxaparin Sodium 40 MG/0.4 ML SYRINGE SC SCH (08:51)
[2018-06-23] MEDS: Pantoprazole 40 MG GRANULES PACKET PER TUBE SCH (08:51)
[2018-06-23] MEDS: metroNIDAZOLE 500 MG TAB PO SCH ×3 (08:51→20:52)
[2018-06-23] MEDS: ALPRAZolam 0.25 MG TAB PO SCH ×2 (08:51→20:51)
[2018-06-23] MEDS: busPIRone HCl 10 MG TAB PO SCH ×2 (08:51→20:51)
[2018-06-23 09:32] LABS: Band 5 % (5-11); Eosinophils 1 % (0-10); Lymphocytes 14 % (21-51); MDiff Complete? YES; Monocytes 3 % (0-10); Neutrophil 74 % (42-75); Polychromasia SLIGHT = 2-3 cells (100X) (0-2/hpf); Reactive Lymphocytes 2 % (0-10)
--- NOTE | 2018-06-23 10:59 | RAD ---
SINGLE VIEW CHEST: HISTORY: Leukocytosis. COMPARISON: 06/17/2018 FINDINGS: A single view of the chest shows a normal sized cardiomediastinal silhouette. There is an area of th e air space opacity in the mid portion of the right thorax, which has slightly worsened, compared to the prior examination. No pleural effusion is seen. IMPRESSION: Slight worsening of right pulmonary infiltrate. POS: [facility]
--- NOTE | 2018-06-23 11:08 | PRG ---
DATE OF SERVICE: 06/23/2018 SUBJECTIVE: PEG tube infusing. Denies any pain or discomfort. OBJECTIVE: VITAL SIGNS: Temperature 99, pulse 99, respirations 20, saturations 96% on room air, blood pressure 126/77. CHEST: Decreased breath sounds. No wheezing. CARDIAC: Normal S1 and S2. No gallops. ABDOMEN: No masses. IMPRESSION: 1. Aspiration pneumonia. 2. Dysphagia, status post percutaneous endoscopic gastrostomy. PLAN: 1. Eventually placement. 2. Pulmonary follow at a distance. Please call if needed. Job ID: [id number]
[2018-06-23] MEDS: traMADol HCl 50 MG TAB PER TUBE PRN (11:56)
--- NOTE | 2018-06-23 18:02 | PDOC.PN ---
- Subjective Encounter Start Date: 06/23/18 Encounter Start Time: 09:00 Not verbal this morning. - Objective Resuscitation Status - Order Detail: 06/17/18 05:36 Resuscitation Status Routine Resuscitation Status: FULL: Full Resuscitation Vital Signs & Weight: Vital Signs (12 hours) Temp Pulse Resp BP Pulse Ox 06/23/18 13:14 99 20 92 L 06/23/18 08:51 92 L 06/23/18 07:15 99.0 F 99 20 127/77 92 L 06/23/18 06:15 98 16 91 L Weight Admit Weight 106 lb 4.8 oz Weight 106 lb 4.8 oz Most Recent Monitor Data Heart Rate from ECG 83 NIBP 98/55 NIBP BP-Mean 69 Respiration from ECG 13 SpO2 86 I&O: 06/22/18 06/23/18 06/24/18 06:59 06:59 06:59 Intake Total 696 1340 Output Total 351 0 Balance 345 1340 Result Diagrams: 06/23/18 07:28 06/22/18 09:25 Additional Labs: Accuchecks 06/23/18 06/23/18 06/23/18 16:19 11:11 04:57 POC Glucose 208 H 270 H 343 H 06/22/18 20:35 POC Glucose 239 H Phys Exam - Physical Examination Constitutional: NAD Not significantly interactive, but awake. No visual tracking. Respiratory: no wheezing, no rales, no rhonchi, clear to auscultation bilateral Cardiovascular: RRR, no significant murmur Gastrointestinal: soft, no distention, positive bowel sounds Musculoskeletal: no edema Deviation from normal: Not tracking or interactive. Dx/Plan (1) Pneumonia Code(s): J18.9 - PNEUMONIA, UNSPECIFIED ORGANISM Status: Acute Qualifiers: Pneumonia type: aspiration pneumonia Comment: Leucocytosis worse, add metronidazole for aspiration pneumonia, recheck CBC (2) Oropharyngeal dysphagia Code(s): R13.12 - DYSPHAGIA, OROPHARYNGEAL PHASE Status: Chronic Comment: s/ p PEG tube (3) Acute metabolic encephalopathy Code(s): G93.41 - METABOLIC ENCEPHALOPATHY Status: Resolved (4) Acute worsening of stage 3 chronic kidney disease Code(s): N18.3 - CHRONIC KIDNEY DISEASE, STAGE 3 (MODERATE) Status: Resolved (5) Septic shock Code(s): A41.9 - SEPSIS, UNSPECIFIED ORGANISM; R65.21 - SEVERE SEPSIS WITH SEPTIC SHOCK Status: Resolved (6) GERD (gastroesophageal reflux disease) Code(s): K21.9 - GASTRO-ESOPHAGEAL REFLUX DISEASE WITHOUT ESOPHAGITIS Status: Chronic Comment: stable (7) Hypothyroidism Code(s): E03.9 - HYPOTHYROIDISM, UNSPECIFIED Status: Chronic Comment: stable - Plan * Leukocytosis is slightly better today. * Repeat CXR does confirm infiltrate. * Continue abx. Recheck in am. * PEG in place and feedings started.
[2018-06-24] MEDS: Baclofen 10 MG TAB PO SCH ×5 (00:31→23:41)
[2018-06-24] MEDS: HumaLOG 300 UNITS/3 ML VIAL SC PRN ×3 (05:43→20:16)
[2018-06-24 06:09] LABS: #Basophils 0.1 thou/uL (0.0-0.2); #Eosinphils 0.2 thou/uL (0.0-0.7); #Lymphocytes 2.4 thou/uL (1.20-3.40); #Monocytes 1.1 thou/uL (0.11-0.59); %Basophils 0.4 % (0.0-1.0); %Eosinophils 1.2 % (0.0-10.0); %Lymphocytes 14.4 % (21.0-51.0); %Monocytes 6.4 % (0.0-10.0); %Neutrophils 77.7 % (42.0-75.0); Hemoglobin 10.9 g/dL (12.0-16.0); Mean Corpuscular HGB CONC 31.5 g/dL (32.0-36.0); Mean Corpuscular Hemoglobin 31.1 pg (27.0-31.0); Mean Corpuscular Volume 98.7 fL (78.0-98.0); Mean Platelet Volume 10.3 fL (7.4-10.4); Platelet Count 230 thou/uL (130-400); RBC Distribution Width 13.8 % (11.5-14.5); Red Blood Cell (RBC) Count 3.52 mill/uL (4.20-5.40); White Blood Cell (WBC) Count 16.7 thou/uL (4.8-10.8)
--- NOTE | 2018-06-24 08:59 | PRG ---
DATE OF SERVICE: 06/24/2018 SUBJECTIVE: Tasneem Anguiano this morning appears to be still lethargic, encephalopathic. OBJECTIVE: VITAL SIGNS: Saturations 98% on room air, respirations 20, temperature 99, pulse 112, and blood pressure 140/77. CHEST: Decreased breath sounds without any wheezing. CARDIAC: Normal S1 and S2. No gallops. ABDOMEN: No masses. IMPRESSION: 1. Aspiration pneumonia. 2. Dysphagia. 3. Encephalopathy. PLAN: I would discontinue all anti-anxiety medicine that she does not need. It is clearly causing to be lethargic. Antibiotics. Eventually placement. Discussed with family ongoing issues. She is to be made a DNR. Job ID: [id number]
[2018-06-24] MEDS: Pantoprazole 40 MG GRANULES PACKET PER TUBE SCH (09:38)
[2018-06-24] MEDS: Furosemide 20 MG TAB PO SCH (09:38)
[2018-06-24] MEDS: Cefdinir 300 MG CAP PER TUBE SCH ×2 (09:39→20:13)
[2018-06-24] MEDS: Multivit, Therapeutic 1 TAB PO SCH (09:39)
[2018-06-24] MEDS: metroNIDAZOLE 500 MG TAB PO SCH ×3 (09:39→20:13)
[2018-06-24] MEDS: Enoxaparin Sodium 40 MG/0.4 ML SYRINGE SC SCH (09:39)
[2018-06-24] MEDS ORDERED: Sodium Chloride 0.9% 500 ML IV SCH (15:00)
[2018-06-24] MEDS ORDERED: FLUoxetine HCl 20 MG/5 ML UDCUP PER TUBE SCH (15:00)
[2018-06-24 15:45] LABS: Anion Gap 15 mmol/L (10-20); BUN (Urea Nitrogen) 23 mg/dL (9.8-20.1); Calc. Creatinine Clearance 25 mL/min (70-130); Calcium 9.5 mg/dL (7.8-10.44); Carbon Dioxide 20 mmol/L (23-31); Chloride 104 mmol/L (98-107); Estimated GFR-MDRD 31; Glucose 403 mg/dL (80-115); Potassium 4.4 mmol/L (3.5-5.1); Sodium 135 mmol/L (136-145)
[2018-06-24] MEDS: Acetaminophen 650 MG Suppository PR PRN (15:56)
--- NOTE | 2018-06-24 17:27 | CT ---
CT CHEST WITHOUT CONTRAST: INDICATIONS: Fever. Pneumonia. CORRELATION: Chest film from 06/23/2018. TECHNIQUE: Multiple axial tomograms obtained through the chest without IV enhancement. FINDINGS: Confluent alveolar infiltrate, along with hazy alveolar and interstitial infiltrate, in the right low er lobe. There is also a patchy infiltrate in the peripheral right middle lobe. There is also some streaky infiltrate in the right upper lobe, along with fissure. There is a new fo jessy area of opacity in the right upper lobe, which has a nodular appearance, measuring 1.5 cm cranioc audal x 1.0 cm AP. This is a new density when compared to 05/29/2018 and, therefore, probably repres ents a focal area of inflammatory change. There continues to be hazy ground glass type infiltrate in the left upper lobe, similar in appearance to the CT of 05/29/2018. Streaky atelectasis and/or infiltrate in the left lower lobe is slightly l ess prominent today. The mediastinum is unremarkable for an unenhanced study. Images through the upper abdomen show an at rophic left kidney. IMPRESSION: 1. Progressive, confluent consolidation in the posterior right lower lobe, when compared to examinat ion of 05/29/2018. Hazy alveolar infiltrate in the right middle lobe and right upper lobe is seen, a nd there is a focal nodular density now seen in the right upper lobe, which is new from 05/29/2018. 2. Continued hazy alveolar infiltrate in the left upper lobe and streaky atelectasis and/or infiltra te in the left lower lobe, posteriorly, which appears improved from prior study. POS: [facility]
[2018-06-24 18:12] LABS: Bilirubin Negative (Negative); Blood, Urine Negative (Negative); Clarity CLEAR (Clear); Glucose, Urine (Dipstick) 500 mg/dL (Negative); Leukocyte Trace (Negative); Nitrite Negative (Negative); Protein, Urine (Dipstick) 30 mg/dL (Neg-Trace); Specific Gravity, Urine 1.019 (1.002-1.036); Urobilinogen 0.2 mg/dL (0.2-1.0)
[2018-06-24 18:14] LABS: Bacteria/HPF None Seen HPF (None Seen); Hyaline Casts/LPF 7-10 HYALINE CAST LPF (0-3 Hyaline); Pathc Cast-AUWi Flag 2.32 (0-2.49); Squamous Epithelial 0-3 HPF (0-3); Yeast-AUWi Flag 1230.8 (0-25.0)
[2018-06-24 18:29] LABS: RBC/HPF 0-3 HPF (0-3); Yeast-All Forms 2+ HPF (None Seen)
[2018-06-24 18:30] LABS: Urine Culture Reflex Yes Yes
[2018-06-24] MEDS: Gabapentin 100 MG CAP PO SCH (20:13)
[2018-06-24] MEDS: lamoTRIgine 100 MG TAB PER TUBE SCH (20:13)
[2018-06-24] MEDS: FLUoxetine HCl 20 MG/5 ML UDCUP PER TUBE SCH (20:15)
[2018-06-25] MEDS: Piperacillin/Tazobactam 3.375 GM in Sodium Chloride 0.9% 100 ML IVPB SCH ×4 (00:32→17:56)
[2018-06-25] MEDS: traMADol HCl 50 MG TAB PER TUBE PRN (01:19)
[2018-06-25] MEDS: Baclofen 10 MG TAB PO SCH ×3 (05:32→17:56)
[2018-06-25] MEDS: Levothyroxine Sodium 25 MCG TAB PO SCH (05:32)
[2018-06-25] MEDS: HumaLOG 300 UNITS/3 ML VIAL SC PRN ×3 (06:04→18:12)
[2018-06-25 07:03] LABS: #Basophils 0.1 thou/uL (0.0-0.2); #Eosinphils 0.1 thou/uL (0.0-0.7); #Lymphocytes 1.8 thou/uL (1.20-3.40); #Monocytes 1.2 thou/uL (0.11-0.59); #Neutrophils 11.5 thou/uL (1.40-6.50); %Basophils 0.4 % (0.0-1.0); %Eosinophils 0.9 % (0.0-10.0); %Lymphocytes 12.1 % (21.0-51.0); %Neutrophils 78.7 % (42.0-75.0); Hemoglobin 10.9 g/dL (12.0-16.0); Mean Corpuscular HGB CONC 32.6 g/dL (32.0-36.0); Mean Corpuscular Hemoglobin 31.4 pg (27.0-31.0); Mean Corpuscular Volume 96.5 fL (78.0-98.0); Mean Platelet Volume 10.6 fL (7.4-10.4); Platelet Count 256 thou/uL (130-400); RBC Distribution Width 13.8 % (11.5-14.5); Red Blood Cell (RBC) Count 3.46 mill/uL (4.20-5.40); White Blood Cell (WBC) Count 14.6 thou/uL (4.8-10.8)
[2018-06-25 07:22] LABS: Anion Gap 15 mmol/L (10-20); BUN (Urea Nitrogen) 24 mg/dL (9.8-20.1); Calc. Creatinine Clearance 28 mL/min (70-130); Carbon Dioxide 21 mmol/L (23-31); Chloride 105 mmol/L (98-107); Estimated GFR-MDRD 35; Glucose 381 mg/dL (80-115); Potassium 3.8 mmol/L (3.5-5.1); Sodium 137 mmol/L (136-145)
--- NOTE | 2018-06-25 07:28 | PDOC.PN ---
- Subjective Encounter Start Date: 06/24/18 Encounter Start Time: 11:50 Still not significantly responsive. Opens eyes, but not interactive. - Objective Resuscitation Status - Order Detail: 06/17/18 05:36 Resuscitation Status Routine Resuscitation Status: FULL: Full Resuscitation Vital Signs & Weight: Vital Signs (12 hours) Temp Pulse Resp BP Pulse Ox 06/25/18 06:58 96 18 97 06/25/18 04:00 99.0 F 110 H 20 164/79 H 94 L 06/25/18 00:06 92 18 92 L 06/24/18 20:00 98.9 F 108 H 20 145/75 H Weight Admit Weight 106 lb 4.8 oz Weight 106 lb 4.8 oz Most Recent Monitor Data Heart Rate from ECG 83 NIBP 98/55 NIBP BP-Mean 69 Respiration from ECG 13 SpO2 86 I&O: 06/24/18 06/25/18 06/26/18 06:59 06:59 06:59 Intake Total 1310 1945 Output Total 0 Balance 1310 1945 Result Diagrams: 06/25/18 06:11 06/25/18 06:11 Additional Labs: Accuchecks 06/25/18 06/24/18 06/24/18 04:50 20:09 16:19 POC Glucose 353 H 266 H 354 H 06/24/18 11:55 POC Glucose 237 H Phys Exam - Physical Examination Constitutional: NAD Does not interact or track Respiratory: no wheezing, no rales, no rhonchi, clear to auscultation bilateral Cardiovascular: RRR, no significant murmur Gastrointestinal: soft, non-tender, no distention, positive bowel sounds PEG in place Musculoskeletal: no edema Lying on right side as typical. Flexion position. Not contracted. Dx/Plan (1) Pneumonia Code(s): J18.9 - PNEUMONIA, UNSPECIFIED ORGANISM Status: Acute Qualifiers: Pneumonia type: aspiration pneumonia Comment: Leucocytosis worse, add metronidazole for aspiration pneumonia, recheck CBC (2) Oropharyngeal dysphagia Code(s): R13.12 - DYSPHAGIA, OROPHARYNGEAL PHASE Status: Chronic Comment: s/ p PEG tube (3) Acute metabolic encephalopathy Code(s): G93.41 - METABOLIC ENCEPHALOPATHY Status: Resolved (4) Acute worsening of stage 3 chronic kidney disease Code(s): N18.3 - CHRONIC KIDNEY DISEASE, STAGE 3 (MODERATE) Status: Resolved (5) Septic shock Code(s): A41.9 - SEPSIS, UNSPECIFIED ORGANISM; R65.21 - SEVERE SEPSIS WITH SEPTIC SHOCK Status: Resolved (6) GERD (gastroesophageal reflux disease) Code(s): K21.9 - GASTRO-ESOPHAGEAL REFLUX DISEASE WITHOUT ESOPHAGITIS Status: Chronic Comment: stable (7) Hypothyroidism Code(s): E03.9 - HYPOTHYROIDISM, UNSPECIFIED Status: Chronic Comment: stable (8) Metabolic encephalopathy Code(s): G93.41 - METABOLIC ENCEPHALOPATHY Status: Acute - Plan * Discussed with Dr. Hall and with patient's mother. Apparently she was more responsive days ago. Her mother thinks it may just be depression as this has happened before. * Resume home meds that had been held due to dysphagia. Some psych meds. * Potentially sedating meds held by Dr. Roman. * Spiked temp later in the day. Ordered blood cultures, chest CT and UA. * CT concerning for persistent pneumonia. Resuming IV abx.
[2018-06-25] MEDS ORDERED: Cefepime 1 GM in Sodium Chloride 0.9% 100 ML IVPB SCH (09:00)
--- NOTE | 2018-06-25 09:06 | PRG ---
DATE OF SERVICE: 06/25/2018 SUBJECTIVE: Tasneem Anguiano still remains obtunded. OBJECTIVE: VITAL SIGNS: Temperature is 97, pulse 104, respiratory rate 18, and blood pressure 135/76. CHEST: Decreased breath sounds. No wheezing. CARDIAC: Normal S1 and S2. No gallops. ABDOMEN: No masses. LABORATORY DATA: White count 14,000. Lytes were normal. Creatinine is 1.48. A CT of the chest was ordered yesterday. IMPRESSION: 1. Encephalopathy, I have discontinued all the sedation. 2. Aspiration pneumonia. Once again, at this stage, nothing additional to offer. PEG tube feedings in place. She is on antibiotics. She is to be made a DNR. Job ID: [id number]
[2018-06-25] MEDS: Multivit, Therapeutic 1 TAB PO SCH (09:38)
[2018-06-25] MEDS: Aspirin Chewable 81 MG TAB PER TUBE SCH (09:38)
[2018-06-25] MEDS: Pantoprazole 40 MG GRANULES PACKET PER TUBE SCH (09:38)
[2018-06-25] MEDS: Enoxaparin Sodium 40 MG/0.4 ML SYRINGE SC SCH (09:39)
[2018-06-25] MEDS: FLUoxetine HCl 20 MG/5 ML UDCUP PER TUBE SCH ×2 (09:43→20:23)
[2018-06-25] MEDS: Acetaminophen 650 MG Suppository PR PRN (11:31)
[2018-06-25] MEDS: Furosemide 20 MG TAB PO SCH (13:42)
--- NOTE | 2018-06-25 15:09 | PDOC.PN ---
- Subjective Encounter Start Date: 06/25/18 Encounter Start Time: 13:00 Non-verbal. - Objective Resuscitation Status - Order Detail: 06/17/18 05:36 Resuscitation Status Routine Resuscitation Status: FULL: Full Resuscitation Vital Signs & Weight: Vital Signs (12 hours) Temp Pulse Resp BP Pulse Ox 06/25/18 13:06 99 18 93 L 06/25/18 12:00 101.3 F H 108 H 18 139/77 91 L 06/25/18 10:30 101.1 F H 06/25/18 08:00 97.9 F 104 H 18 135/76 93 L 06/25/18 06:58 96 18 97 06/25/18 04:00 99.0 F 110 H 20 164/79 H 94 L Weight Admit Weight 106 lb 4.8 oz Weight 106 lb 4.8 oz Most Recent Monitor Data Heart Rate from ECG 83 NIBP 98/55 NIBP BP-Mean 69 Respiration from ECG 13 SpO2 86 I&O: 06/24/18 06/25/18 06/26/18 06:59 06:59 06:59 Intake Total 1310 1945 90 Output Total 0 Balance 1310 1945 90 Result Diagrams: 06/25/18 06:11 06/25/18 06:11 Additional Labs: Accuchecks 06/25/18 06/25/18 06/24/18 12:11 04:50 20:09 POC Glucose 270 H 353 H 266 H 06/24/18 06/24/18 16:19 11:55 POC Glucose 354 H 237 H Phys Exam - Physical Examination Constitutional: NAD Still not engaging or interactive. Respiratory: no wheezing, no rales, no rhonchi, clear to auscultation bilateral Cardiovascular: RRR, no significant murmur, no rub Gastrointestinal: soft, non-tender, no distention, positive bowel sounds PEG site looks good. No evidence of TTP with palpation. Musculoskeletal: no edema Non-interactive. She does not make eye contact or track. Squeezes with left hand without prompting. Min. spont movements Deviation from normal: Skin looks ok. No evidence of infection or inflammed IV sites. Dx/Plan (1) Pneumonia Code(s): J18.9 - PNEUMONIA, UNSPECIFIED ORGANISM Status: Acute Qualifiers: Pneumonia type: aspiration pneumonia Comment: CT appeared to show some potential progression. Back on IV abx. (2) Oropharyngeal dysphagia Code(s): R13.12 - DYSPHAGIA, OROPHARYNGEAL PHASE Status: Chronic Comment: s/ p PEG tube (3) Acute metabolic encephalopathy Code(s): G93.41 - METABOLIC ENCEPHALOPATHY Status: Resolved (4) Acute worsening of stage 3 chronic kidney disease Code(s): N18.3 - CHRONIC KIDNEY DISEASE, STAGE 3 (MODERATE) Status: Resolved (5) Septic shock Code(s): A41.9 - SEPSIS, UNSPECIFIED ORGANISM; R65.21 - SEVERE SEPSIS WITH SEPTIC SHOCK Status: Resolved (6) GERD (gastroesophageal reflux disease) Code(s): K21.9 - GASTRO-ESOPHAGEAL REFLUX DISEASE WITHOUT ESOPHAGITIS Status: Chronic Comment: stable (7) Hypothyroidism Code(s): E03.9 - HYPOTHYROIDISM, UNSPECIFIED Status: Chronic Comment: stable (8) Metabolic encephalopathy Code(s): G93.41 - METABOLIC ENCEPHALOPATHY Status: Acute - Plan * Back most of her usual psych meds. * Still having some fever. Leukocytosis improving. * Assuming the fever and WBC are related to the pneumonia. Bl cx negative. UA negative. * Appeared to be improving and they appeared to be getting worse. * Consult ID. * PEG seems to be working well.
[2018-06-25] MEDS: Gabapentin 100 MG CAP PO SCH (20:23)
[2018-06-25] MEDS: lamoTRIgine 100 MG TAB PER TUBE SCH (20:23)
[2018-06-26] MEDS: Piperacillin/Tazobactam 3.375 GM in Sodium Chloride 0.9% 100 ML IVPB SCH ×4 (00:47→17:38)
[2018-06-26] MEDS: Baclofen 10 MG TAB PO SCH ×3 (00:47→11:22)
[2018-06-26] MEDS: Levothyroxine Sodium 25 MCG TAB PO SCH (05:19)
[2018-06-26] MEDS: HumaLOG 300 UNITS/3 ML VIAL SC PRN ×4 (06:13→20:29)
[2018-06-26] MEDS: Pantoprazole 40 MG GRANULES PACKET PER TUBE SCH (08:29)
[2018-06-26] MEDS: Multivit, Therapeutic 1 TAB PO SCH (08:29)
[2018-06-26] MEDS: Aspirin Chewable 81 MG TAB PER TUBE SCH (08:29)
[2018-06-26] MEDS: Furosemide 20 MG TAB PO SCH (08:29)
[2018-06-26] MEDS: FLUoxetine HCl 20 MG/5 ML UDCUP PER TUBE SCH ×2 (08:30→20:16)
[2018-06-26] MEDS: Enoxaparin Sodium 40 MG/0.4 ML SYRINGE SC SCH (08:30)
[2018-06-26 08:39] LABS: #Basophils 0.1 thou/uL (0.0-0.2); #Eosinphils 0.1 thou/uL (0.0-0.7); #Lymphocytes 2.8 thou/uL (1.20-3.40); #Monocytes 1.8 thou/uL (0.11-0.59); #Neutrophils 12.4 thou/uL (1.40-6.50); %Basophils 0.5 % (0.0-1.0); %Eosinophils 0.3 % (0.0-10.0); %Lymphocytes 16.3 % (21.0-51.0); %Monocytes 10.7 % (0.0-10.0); %Neutrophils 72.1 % (42.0-75.0); Mean Corpuscular HGB CONC 32.5 g/dL (32.0-36.0); Mean Corpuscular Hemoglobin 31.3 pg (27.0-31.0); Mean Corpuscular Volume 96.4 fL (78.0-98.0); Mean Platelet Volume 10.3 fL (7.4-10.4); Platelet Count 317 thou/uL (130-400); Red Blood Cell (RBC) Count 3.82 mill/uL (4.20-5.40); White Blood Cell (WBC) Count 17.2 thou/uL (4.8-10.8)
--- NOTE | 2018-06-26 08:58 | PRG ---
DATE OF SERVICE: 06/26/2018 SUBJECTIVE: Tasneem Anguiano this morning remains still encephalopathic, minimally responsive, opens eyes. OBJECTIVE: VITAL SIGNS: Respirations are 24, temperature 98, pulse 109, sats are 94 on 2 L, and blood pressure 147/88. CHEST: Decreased breath sounds. No wheezing. CARDIAC: Normal S1 and S2. No gallops. ABDOMEN: No masses. IMPRESSION: 1. Metabolic encephalopathy. 2. Depression. 3. Recurrent aspiration pneumonia with dysphagia. PLAN: PEG in place. I would avoid all kinds of sedative medication on this patient. She is clearly encephalopathic. She is not responsive. She is clearly more obtunded. Reconsult Palliative Care, Hospice for comfort care. Job ID: [id number]
[2018-06-26 09:00] LABS: Anion Gap 17 mmol/L (10-20); BUN (Urea Nitrogen) 26 mg/dL (9.8-20.1); Calc. Creatinine Clearance 28 mL/min (70-130); Calcium 8.8 mg/dL (7.8-10.44); Carbon Dioxide 19 mmol/L (23-31); Chloride 105 mmol/L (98-107); Estimated GFR-MDRD 35; Glucose 313 mg/dL (80-115); Potassium 3.7 mmol/L (3.5-5.1); Sodium 137 mmol/L (136-145)
--- NOTE | 2018-06-26 23:23 | PDOC.PN ---
- Subjective Encounter Start Date: 06/26/18 Encounter Start Time: 10:45 Still not interactive. - Objective Resuscitation Status - Order Detail: 06/17/18 05:36 Resuscitation Status Routine Resuscitation Status: FULL: Full Resuscitation Vital Signs & Weight: Vital Signs (12 hours) Temp Pulse Resp BP BP Pulse Ox 06/26/18 19:23 95 06/26/18 19:22 99.3 F 107 H 20 129/84 95 06/26/18 18:49 107 H 20 95 06/26/18 15:50 97.9 F 114 H 18 119/84 95 06/26/18 11:28 98.7 F 103 H 16 145/84 H 96 Weight Admit Weight 106 lb 4.8 oz Weight 106 lb 4.8 oz Most Recent Monitor Data Heart Rate from ECG 83 NIBP 98/55 NIBP BP-Mean 69 Respiration from ECG 13 SpO2 86 I&O: 06/25/18 06/26/18 06/27/18 06:59 06:59 06:59 Intake Total 1945 1643 770 Output Total 0 Balance 1945 1643 770 Result Diagrams: 06/26/18 08:18 06/26/18 08:18 Additional Labs: Accuchecks 06/26/18 06/26/18 06/26/18 20:10 15:51 11:28 POC Glucose 297 H 185 H 386 H 06/26/18 05:10 POC Glucose 335 H Phys Exam - Physical Examination Constitutional: NAD Not interactive. Respiratory: no wheezing, no rales, no rhonchi Cardiovascular: RRR, no significant murmur Gastrointestinal: soft, non-tender, no distention, positive bowel sounds Musculoskeletal: no edema Skin: no rash Deviation from normal: Small area of stage II on left hip Dx/Plan (1) Pneumonia Code(s): J18.9 - PNEUMONIA, UNSPECIFIED ORGANISM Status: Acute Qualifiers: Pneumonia type: aspiration pneumonia Comment: CT appeared to show some potential progression. Back on IV abx. (2) Oropharyngeal dysphagia Code(s): R13.12 - DYSPHAGIA, OROPHARYNGEAL PHASE Status: Chronic Comment: s/ p PEG tube (3) Acute metabolic encephalopathy Code(s): G93.41 - METABOLIC ENCEPHALOPATHY Status: Resolved (4) Acute worsening of stage 3 chronic kidney disease Code(s): N18.3 - CHRONIC KIDNEY DISEASE, STAGE 3 (MODERATE) Status: Resolved (5) Septic shock Code(s): A41.9 - SEPSIS, UNSPECIFIED ORGANISM; R65.21 - SEVERE SEPSIS WITH SEPTIC SHOCK Status: Resolved (6) GERD (gastroesophageal reflux disease) Code(s): K21.9 - GASTRO-ESOPHAGEAL REFLUX DISEASE WITHOUT ESOPHAGITIS Status: Chronic Comment: stable (7) Hypothyroidism Code(s): E03.9 - HYPOTHYROIDISM, UNSPECIFIED Status: Chronic Comment: stable (8) Metabolic encephalopathy Code(s): G93.41 - METABOLIC ENCEPHALOPATHY Status: Acute - Plan * Encephalopathy unchanged. * Dr. Roman concerned about her meds. * He discontinued some meds, but they were not significantly sedating meds. * None of those meds have been resumed. * She was resumed on her psych meds. She was encephalopathic prior to resuming them. Hoped she might improve with those meds as they are not typically sedating either and her mother indicated that she has suffered significant depression in the past similar to this. * The baclofen had not been stopped. It appears that the home med dose was PRN and it has been scheduled. Will stop that. * Continue with the IV abx. * Blood sugars have been running too high. Will increase to aggressive sliding scale. If no improvement, change formula for PEG feeds.
[2018-06-27] MEDS: Piperacillin/Tazobactam 3.375 GM in Sodium Chloride 0.9% 100 ML IVPB SCH ×5 (00:26→23:35)
[2018-06-27] MEDS: Levothyroxine Sodium 25 MCG TAB PO SCH (05:14)
[2018-06-27] MEDS: Insulin Regular 300 UNITS/3 ML VIAL SC PRN ×4 (05:23→21:25)
[2018-06-27 07:23] LABS: Anion Gap 19 mmol/L (10-20); BUN (Urea Nitrogen) 39 mg/dL (9.8-20.1); Calc. Creatinine Clearance 22 mL/min (70-130); Carbon Dioxide 16 mmol/L (23-31); Chloride 103 mmol/L (98-107); Estimated GFR-MDRD 27; Potassium 3.4 mmol/L (3.5-5.1); Sodium 135 mmol/L (136-145)
[2018-06-27 07:24] LABS: Calcium 8.3 mg/dL (7.8-10.44); Glucose 519 mg/dL (80-115)
[2018-06-27 08:09] LABS: Band 4 % (5-11); Hemoglobin 11.9 g/dL (12.0-16.0); Lymphocytes 8 % (21-51); MDiff Complete? YES; Mean Corpuscular HGB CONC 32.3 g/dL (32.0-36.0); Mean Corpuscular Hemoglobin 31.2 pg (27.0-31.0); Mean Corpuscular Volume 96.6 fL (78.0-98.0); Mean Platelet Volume 10.9 fL (7.4-10.4); Monocytes 1 % (0-10); Neutrophil 87 % (42-75); Platelet Count 309 thou/uL (130-400); RBC Distribution Width 14.2 % (11.5-14.5); Red Blood Cell (RBC) Count 3.81 mill/uL (4.20-5.40); White Blood Cell (WBC) Count 23.8 thou/uL (4.8-10.8)
--- NOTE | 2018-06-27 08:52 | PDOC.PN ---
- Subjective Encounter Start Date: 06/27/18 Encounter Start Time: 09:01 - Objective Resuscitation Status - Order Detail: 06/17/18 05:36 Resuscitation Status Routine Resuscitation Status: FULL: Full Resuscitation Vital Signs & Weight: Vital Signs (12 hours) Temp Pulse Resp BP Pulse Ox 06/27/18 07:08 99.4 F 110 H 16 127/70 98 06/27/18 07:01 95 06/27/18 06:57 114 H 24 H 95 06/27/18 04:00 98.1 F 115 H 20 146/89 H 97 06/27/18 00:25 110 H 18 94 L 06/27/18 00:00 99.7 F H 106 H 20 131/87 96 Weight Admit Weight 106 lb 4.8 oz Weight 106 lb 4.8 oz Most Recent Monitor Data Heart Rate from ECG 83 NIBP 98/55 NIBP BP-Mean 69 Respiration from ECG 13 SpO2 86 I&O: 06/26/18 06/27/18 06/28/18 06:59 06:59 06:59 Intake Total 1643 1710 Balance 1643 1710 Result Diagrams: 06/27/18 06:43 06/27/18 06:43 Additional Labs: Accuchecks 06/27/18 06/27/18 06/26/18 05:20 04:56 20:10 POC Glucose 540 H 489 H 297 H 06/26/18 06/26/18 15:51 11:28 POC Glucose 185 H 386 H Phys Exam - Physical Examination Constitutional: NAD Right basilar rales. No wheezes. Modestly tachypneic. Cardiovascular: RRR, no significant murmur, no rub Tachy Gastrointestinal: soft, no distention, positive bowel sounds No evidence of tenderness Musculoskeletal: no edema Does not move RUE and maintains flexion of hand and fingers. Deviation from normal: Eyes open, does not track or respond. Dx/Plan (1) Pneumonia Code(s): J18.9 - PNEUMONIA, UNSPECIFIED ORGANISM Status: Acute Qualifiers: Pneumonia type: aspiration pneumonia Comment: CT appeared to show some potential progression. Back on IV abx. (2) Oropharyngeal dysphagia Code(s): R13.12 - DYSPHAGIA, OROPHARYNGEAL PHASE Status: Chronic Comment: s/ p PEG tube (3) Acute metabolic encephalopathy Code(s): G93.41 - METABOLIC ENCEPHALOPATHY Status: Resolved (4) Acute worsening of stage 3 chronic kidney disease Code(s): N18.3 - CHRONIC KIDNEY DISEASE, STAGE 3 (MODERATE) Status: Resolved (5) Septic shock Code(s): A41.9 - SEPSIS, UNSPECIFIED ORGANISM; R65.21 - SEVERE SEPSIS WITH SEPTIC SHOCK Status: Resolved (6) GERD (gastroesophageal reflux disease) Code(s): K21.9 - GASTRO-ESOPHAGEAL REFLUX DISEASE WITHOUT ESOPHAGITIS Status: Chronic Comment: stable (7) Hypothyroidism Code(s): E03.9 - HYPOTHYROIDISM, UNSPECIFIED Status: Chronic Comment: stable (8) Metabolic encephalopathy Code(s): G93.41 - METABOLIC ENCEPHALOPATHY Status: Acute - Plan * CT head * CT abdomen * ABG * CXR * Lipase * Hold Lasix * Fluid bolus * Long acting insulin. Increased SSI to aggressive yesterday. May need to hold feeds for now. * Add Cefepime and Vanc given increased leukocytosis and length of stay in the hospital. * Patient was made full code on admission. Suspect that was because she was not able to respond. Record has a copy of a DPOA. It is for her son's. I called the son listed, Thomas, and left a message. Need to clarify code status and update him. I have spoken to her mother several times. * Palliative Care Team has been consulted, but have not seen her yet.
[2018-06-27] MEDS ORDERED: Insulin Glargine 20 UNITS in Pre-Filled Syringe 1 EACH SC SCH (09:00)
[2018-06-27] MEDS ORDERED: Sodium Chloride 0.9% 500 ML IV SCH (09:00)
[2018-06-27] MEDS: Cefepime 1 GM in Sodium Chloride 0.9% 100 ML IVPB SCH ×2 (09:50→21:13)
[2018-06-27] MEDS: Enoxaparin Sodium 30 MG/0.3 ML SYRINGE SC SCH (09:56)
[2018-06-27] MEDS: Aspirin Chewable 81 MG TAB PER TUBE SCH (09:56)
[2018-06-27] MEDS: Pantoprazole 40 MG GRANULES PACKET PER TUBE SCH (09:57)
[2018-06-27] MEDS: FLUoxetine HCl 20 MG/5 ML UDCUP PER TUBE SCH ×2 (09:57→21:14)
[2018-06-27] MEDS: Multivit, Therapeutic 1 TAB PO SCH (09:57)
[2018-06-27] MEDS ORDERED: Vancomycin HCl 1 GM in Premix Bag 1 BAG IVPB SCH (10:00)
--- NOTE | 2018-06-27 10:09 | RAD ---
CHEST 1 VIEW: Date: 06/27/18 HISTORY: Pneumonia. COMPARISON: 06/23/18. FINDINGS: Cardiac silhouette and pulmonary vasculature are unremarkable. Lungs remain hyperinflated. Linear sca rring at the lung bases is now apparent. Infiltrate at the right lower lobe has resolved. No evidence of pneumothorax. IMPRESSION: Interval resolution right basilar infiltrate. No new abnormalities are demonstrated. POS: [facility]
[2018-06-27 10:32] LABS: Actual Bicarbonate (HCO3a) 19.6 mEq/L (22-28); Base Excess (BEa) -1.4 mEq/L (-2.0 to +3.0); Calcium, Ionized 1.09 mmol/L (1.12-1.30); Carboxyhemoglobin (COHb) 0.3 gm% (0.0-3.0); Hemoglobin (Hb) 11.1 g/dL (12.0-16.0); O2 Tension (PaO2) 81.3 mmHg (> 80.0); Potassium - ABG Lab 3.07 mmol/L (3.70-5.30)
[2018-06-27 10:42] LABS: CO2 Tension 22.9 mmHg (35.0-45.0); pH, Arterial 7.55 (7.35-7.45)
[2018-06-27 10:43] LABS: Puncture Site RBA
[2018-06-27 10:44] LABS: ALV-art Gradient 89.715 (0-20)
[2018-06-27] MEDS: Vancomycin HCl 1 GM in Premix Bag 1 BAG IVPB SCH (13:04)
--- NOTE | 2018-06-27 15:37 | CT ---
CT HEAD NONCONTRAST DATE: 06/27/18 HISTORY: Altered mental status. Encephalopathy. COMPARISON: 06/17/18. FINDINGS: There is no evidence of acute intracranial hemorrhage or infarct. Old lacunar infarcts and chronic is chemic small vessel disease are similar in appearance to the prior exam. There is no mass effect or s hift of midline structures. Visualized paranasal sinuses remain well aerated. IMPRESSION: Chronic-type findings are stable. No acute intracranial abnormalities are demonstrated. POS: [facility]
--- NOTE | 2018-06-27 15:52 | CT ---
CT ABDOMEN AND PELVIS NONCONTRAST 06/27/18 HISTORY: Leukocytosis. Encephalopathy. COMPARISON: 05/29/18. FINDINGS: Parenchymal infiltrate is apparent at the right posterior medial lung base, slightly more pronounced than on the CT from 06/24/18. The left kidney is markedly atrophied with a calcification centrally efren t is similar to the previous exams. Right urinary system is decompressed without stone apparent. Lack of IV contrast limits evaluation of the soft tissues. Oral contrast was administered. No evidence of bowel obstruction. Percutaneous gastrostomy feeding catheter is in place. Rectum is distended with f ecal material and fluid up to 8.3 cm. Urinary bladder incompletely distended. Calcification within th e arterial structures. IMPRESSION: While it was not well demonstrated on chest radiograph, right medial basilar infiltrate persists and is slightly more pronounced than on the CT from 06/24/18. Consistent with right lower lobe pneumonia. No evidence of bowel obstruction or intra-abdominal inflammatory process. Atherosclerosis. POS: [facility]
--- NOTE | 2018-06-27 18:59 | PRG ---
DATE OF SERVICE: 06/27/2018 SUBJECTIVE: I met with the patient's son and power of criminal attorney, Guillermo, and his . Fortunately, his works in a mental health home and understands the processes around the facility well. I had a very pleasant conversation with the two of them and updated them on her clinical course. Related all of the findings and the workup that we have undertaken at this point. She seems to have significant encephalopathy and is shutting down neurologically without any good explanation for that at this time. The patient has had a CT of the head twice now about 9 days apart, both of which failed to reveal any significant pathology. She has had CT of the chest, abdomen, and pelvis, with only some findings of pneumonia. Lab work has failed to reveal any significant pathology to account for her symptoms. We had several other physicians working with her and essentially since the placement of the PEG. Sometime after that, she has had this cognitive decline and has not really changed. Her white count has been waxing and waning. She had one episode of fever. We discussed the status of the two sons as the healthcare power of attorneys. We discussed the patient's desires prior to these episodes and their desires for her, and ultimately, they have made the decision for DNAR and this will be ordered into the computer. We also talked about moving forward. She does have an MRI pending. Should that fail to reveal any significant pathology, we will consult Neurology and see if they have any further insights. However, if we fail to find anything about which we can aggressively intervene, there is the possibility of her returning to the nursing facility versus more palliative approach in stopping PEG feeds and keeping her on hospice. They are amenable to following that course of action and reassessing where we are on Friday, and I will be prepared to help us make decisions at that time. I did explain to them that we do have the palliative care team available here and they can work with them as well. Total time spent in advance care planning was 23 minutes. Job ID: [id number]
--- NOTE | 2018-06-27 21:05 | PRG ---
DATE OF SERVICE: 06/27/2018 SERVICE: Pulmonary Medicine. INTERVAL HISTORY: The patient is doing okay from Respiratory standpoint. She remains encephalopathic. She does not attend. I cannot get any additional elements of the history from her. Nursing reports no significant overnight events. PHYSICAL EXAMINATION: VITAL SIGNS: Afebrile with a T-max of 99.7 in the last 24 hours, pulse 110, blood pressure 127/70, respirations 16, and saturation is 98% on 2 L nasal cannula. GENERAL: The patient is awake and alert. That being said, she does not attend or follow any directions. HEENT: Normocephalic and atraumatic. Sclerae white. Conjunctivae pink. Oral mucosa is moist without lesions. LUNGS: Decent air entry. Her respirations are comfortable. There is no prolonged expiratory phase or wheezing. Dependent rhonchi are noted. Dependent crackles are present on the right. HEART: Tachycardic. Regular. ABDOMEN: Soft, nontender, and nondistended. Bowel sounds are positive. MUSCULOSKELETAL: No cyanosis or clubbing. No pitting in the bilateral lower extremities. LABORATORY DATA: WBC 24, hemoglobin 11.9, platelets 309,000, and neutrophil count is 87% on top of 4% bands. The pH 7.55, pCO2 of 23, and pO2 of 82. Creatinine 1.87 and BUN 39. Basic metabolic profile is otherwise unremarkable. Lipase is 32. Urinalysis is positive for glycosuria. Beta-hydroxybutyric acid is quite low. Blood cultures x4. Urine culture x2 are unremarkable. DIAGNOSTIC DATA: CT of the brain x2 demonstrates no significant pathology. CT of the abdomen and pelvis demonstrates intraabdominal process. CT of the chest demonstrates right lower lobe pneumonia. ASSESSMENT: 1. Encephalopathy, underlying etiology unknown. 2. Systemic inflammatory response syndrome. 3. Healthcare-associated pneumonia, secondary to aspiration. 4. Major depressive disorder. 5. Oropharyngeal dysphagia. DISCUSSION AND PLAN: The patient needs an encephalopathy workup. I will add an ammonia to tomorrow morning's laboratories. I will check a procalcitonin, ESR, CRP, and B12 level. TSH was recently normal. MRI is being planned for tomorrow. We will likely need to proceed with an LP looking for infectious/inflammatory processes. The patient practically appears catatonic with dilated pupils, though we are going to need to exclude other pathologies. Pulmonary/Critical Care will continue to follow. Job ID: [id number] MTDD
[2018-06-27] MEDS: Acetaminophen 650 MG Suppository PR PRN (21:28)
[2018-06-28] MEDS: Vancomycin HCl 1 GM in Premix Bag 1 BAG IVPB SCH ×2 (00:16→12:27)
--- NOTE | 2018-06-28 01:55 | CON ---
DATE OF CONSULTATION: REASON FOR CONSULTATION: Change in mental status, neutrophilia. HISTORY OF PRESENT ILLNESS: A 68-year-old with a history of prior CVA, which left her with a right-sided weakness. The patient was at a group home in [place]. She was still able to ambulate with assistance and was admitted following development of confusional state. There was some concern with possible aspiration, because she presents with hypoxemia and abnormal chest x-ray. She became hypotensive and had to be admitted to the ICU for sepsis, and was given Levophed and broad-spectrum antimicrobial coverage. Initial BP was 97/52, heart rate 79, and temperature 98.4 with O2 saturation 92 on 2 L of oxygen supplementation. She is described as alert, but confused in mild distress on admission. Lung exam with bilateral expiratory crackles at bases. She is tachycardic and needed Levophed for maintenance of blood pressure. Skin was warm. Peripheral pulse was present. No focal weakness was noted at the time. White cell count of 26,000 with 5% bands. PH 7.4, pCO2 of 26, and PO2 of 56. Creatinine is 2.73. Urinalysis was normal. Chest x-ray with possible infiltrates in bilateral bases. She had a left internal jugular vein access. CT brain did not show any acute abnormalities. The patient was given broad-spectrum antimicrobial coverage with cefepime, Zosyn, and vancomycin. PAST MEDICAL HISTORY: Anxiety disorder, hypertension, diabetes, cancer, prior CVA with right-sided hemiparesis, right hip fracture with repair, cholecystectomy, hysterectomy, x3, recurrent skin abscesses. SOCIAL HISTORY: Prior every other day smoker. 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 Family history of coronary disease, leukemia, depression. ALLERGIES: BACTRIM. FAMILY HISTORY: Noncontributory. CURRENT MEDICATIONS: 1. DuoNeb. 2. Creon. 3. Aspirin. 4. Cefepime. 5. Enoxaparin. 6. Fluoxetine. 7. Insulin. 8. Levothyroxine. 9. Ondansetron. 10. Pantoprazole. 11. Zosyn. 12. Vancomycin. PHYSICAL EXAMINATION: VITAL SIGNS: T-max 101.3, now she is 99.4. Blood pressure 120/70, pulse 110, respirations 16, O2 saturation 98% with nasal cannula. SKIN: 2 shallow ulcerations in the right femoral region. She has a peripheral IV access and is voiding in the diaper. No lymphadenopathy. Cachexia. Sunken eyes or enophthalmos. She has bilateral pupils about 4 mm, nonreactive. I could not identify any gag reflex. She is breathing spontaneously regularly. LUNGS: Symmetric air entry. S1 and S2 regular rate. ABDOMEN: Soft, not distended. She is flaccid in upper and lower extremities with an upgoing toe on the right and left side. No clonus. She is totally unresponsive. Previously, she was able to respond and was having conversations according to her cousin. LABORATORY DATA: Her white cell count is up to 23.8, hemoglobin 11.9, platelets 309 with 87% neutrophils. No blood. PH 7.5, pCO2 of 22, PO2 of 81. Sodium 135. Creatinine 1.87, it is a bit lower than her baseline on admission. Calcium is 8.3. Phosphorus 3.3, total bilirubin 1.0, AST 18, ALT 18, alkaline phosphatase 134, albumin 3.3, globulin 3.3, lipase 32. Urinalysis with 11 to [address] wbc's. Ab[address]en and pelvis [address] with mild right medial basilar infiltrate. Rectum distended with fecal material. Urinary bladder incompletely distended. Chest x-ray with resolution of right basilar infiltrate. Brain CT with no acute changes. ASSESSMENT: History of prior cerebrovascular accident with right hemiparesis, admission for confusional state and pneumonia, possible aspiration and now progression to unresponsiveness after a period of mental status improvement with fixed pupils and flaccid quadriplegia. DISCUSSION: Differential diagnosis includes brainstem infarct particularly in the thalamus. Intracranial hemorrhage is a possibility. Acute meningitis is less likely. Hydrocephalus has been ruled out. We will obtain an MRI without contrast in view of her renal function. Job ID: [id number] [facility]
[2018-06-28] MEDS: Piperacillin/Tazobactam 3.375 GM in Sodium Chloride 0.9% 100 ML IVPB SCH ×4 (05:13→23:56)
[2018-06-28] MEDS: Levothyroxine Sodium 25 MCG TAB PO SCH (05:14)
[2018-06-28] MEDS: Acetaminophen 650 MG Suppository PR PRN (05:15)
[2018-06-28] MEDS: Insulin Regular 300 UNITS/3 ML VIAL SC PRN ×3 (05:21→16:31)
[2018-06-28 06:10] LABS: INR-International Normal Ratio 1.2; Prothrombin Time 15.6 SEC (12.0-14.7)
[2018-06-28 06:13] LABS: #Eosinphils 0.1 thou/uL (0.0-0.7); #Neutrophils 12.3 thou/uL (1.40-6.50); %Basophils 0.3 % (0.0-1.0); %Eosinophils 0.7 % (0.0-10.0); %Lymphocytes 13.1 % (21.0-51.0); %Monocytes 6.3 % (0.0-10.0); %Neutrophils 79.5 % (42.0-75.0); Hemoglobin 11.5 g/dL (12.0-16.0); Mean Corpuscular HGB CONC 32.4 g/dL (32.0-36.0); Mean Corpuscular Hemoglobin 31.3 pg (27.0-31.0); Mean Corpuscular Volume 96.6 fL (78.0-98.0); Mean Platelet Volume 11.2 fL (7.4-10.4); Platelet Count 202 thou/uL (130-400); Red Blood Cell (RBC) Count 3.68 mill/uL (4.20-5.40); White Blood Cell (WBC) Count 15.5 thou/uL (4.8-10.8)
[2018-06-28 06:20] LABS: Anion Gap 14 mmol/L (10-20); BUN (Urea Nitrogen) 39 mg/dL (9.8-20.1); Calc. Creatinine Clearance 25 mL/min (70-130); Calcium 8.1 mg/dL (7.8-10.44); Carbon Dioxide 21 mmol/L (23-31); Chloride 107 mmol/L (98-107); Estimated GFR-MDRD 31; Glucose 321 mg/dL (80-115); Magnesium 1.6 mg/dL (1.6-2.6); Potassium 3.1 mmol/L (3.5-5.1); Sodium 139 mmol/L (136-145)
[2018-06-28 06:29] LABS: Phosphorus 2.6 mg/dL (2.3-4.7)
[2018-06-28] MEDS: Cefepime 1 GM in Sodium Chloride 0.9% 100 ML IVPB SCH ×2 (08:52→20:07)
[2018-06-28] MEDS: FLUoxetine HCl 20 MG/5 ML UDCUP PER TUBE SCH ×2 (08:59→20:07)
[2018-06-28] MEDS: Aspirin Chewable 81 MG TAB PER TUBE SCH (09:00)
[2018-06-28] MEDS: Multivit, Therapeutic 1 TAB PO SCH (09:00)
[2018-06-28] MEDS: Pantoprazole 40 MG GRANULES PACKET PER TUBE SCH (09:00)
[2018-06-28] MEDS: Enoxaparin Sodium 30 MG/0.3 ML SYRINGE SC SCH (09:16)
--- NOTE | 2018-06-28 11:22 | MRI ---
MRI BRAIN NONCONTRAST: HISTORY: Unresponsive. Dilated pupils. FINDINGS: There is no evidence of acute intracranial hemorrhage or infarct. Diffuse cortical atrophy and mild c hronic ischemic small vessel disease, including at the ancelmo. There is no mass effect or shift of midl ine structures. Mucosal opacification of mastoid air cells is apparent. IMPRESSION: No acute intracranial abnormalities are demonstrated. POS: [facility]
[2018-06-28 12:53] LABS: Vancomycin, Trough 27.9 ug/mL
--- NOTE | 2018-06-28 13:58 | PDOC.PN ---
- Subjective Encounter Start Date: 06/28/18 Encounter Start Time: 13:57 Doing much better. Able to communicate by shaking/nodding her head. Denies any pain. - Objective Resuscitation Status - Order Detail: 06/27/18 18:10 Resuscitation Status Routine Resuscitation Status: DNAR: NO Resuscitation Discussed with: Patient's son and POA Vital Signs & Weight: Vital Signs (12 hours) Temp Pulse Resp BP Pulse Ox 06/28/18 10:13 98 06/28/18 10:10 101 H 20 98 06/28/18 08:00 98.4 F 101 H 20 107/61 96 06/28/18 03:58 99.9 F H Weight Admit Weight 106 lb 4.8 oz Weight 106 lb 4.8 oz Most Recent Monitor Data Heart Rate from ECG 83 NIBP 98/55 NIBP BP-Mean 69 Respiration from ECG 13 SpO2 86 I&O: 06/27/18 06/28/18 06/29/18 06:59 06:59 06:59 Intake Total 1710 1850 60 Balance 1710 1850 60 Result Diagrams: 06/28/18 05:41 06/28/18 05:41 Additional Labs: Accuchecks 06/28/18 06/28/18 06/27/18 11:35 05:21 21:18 POC Glucose 253 H 323 H 190 H 06/27/18 15:43 POC Glucose 330 H Phys Exam - Physical Examination Constitutional: NAD Awake. Tracking with eyes. Shaking/nodding appropriately. Following commands. Moving left side well. Respiratory: no wheezing, no rales, no rhonchi, clear to auscultation bilateral Cardiovascular: RRR, no significant murmur, no rub Gastrointestinal: soft, non-tender, no distention, positive bowel sounds Musculoskeletal: no edema Neurological: non-focal Right sided weakness Dx/Plan (1) Pneumonia Code(s): J18.9 - PNEUMONIA, UNSPECIFIED ORGANISM Status: Acute Qualifiers: Pneumonia type: aspiration pneumonia Comment: CT appeared to show some potential progression. Back on IV abx. (2) Oropharyngeal dysphagia Code(s): R13.12 - DYSPHAGIA, OROPHARYNGEAL PHASE Status: Chronic Comment: s/ p PEG tube (3) Acute metabolic encephalopathy Code(s): G93.41 - METABOLIC ENCEPHALOPATHY Status: Resolved (4) Acute worsening of stage 3 chronic kidney disease Code(s): N18.3 - CHRONIC KIDNEY DISEASE, STAGE 3 (MODERATE) Status: Resolved (5) Septic shock Code(s): A41.9 - SEPSIS, UNSPECIFIED ORGANISM; R65.21 - SEVERE SEPSIS WITH SEPTIC SHOCK Status: Resolved (6) GERD (gastroesophageal reflux disease) Code(s): K21.9 - GASTRO-ESOPHAGEAL REFLUX DISEASE WITHOUT ESOPHAGITIS Status: Chronic Comment: stable (7) Hypothyroidism Code(s): E03.9 - HYPOTHYROIDISM, UNSPECIFIED Status: Chronic Comment: stable (8) Metabolic encephalopathy Code(s): G93.41 - METABOLIC ENCEPHALOPATHY Status: Acute (9) Hyperglycemia Code(s): R73.9 - HYPERGLYCEMIA, UNSPECIFIED Status: Acute - Plan * Much improved today. * She is much more responsive. * Suspect this was related to the scheduled baclofen that was held a couple of days ago. Anticipate it will continue to improve with metabolism. * Continue abx for now. * Continue feeds. * Blood sugar management.
[2018-06-28] MEDS ORDERED: Vancomycin HCl 750 MG in Sodium Chloride 0.9% 250 ML 250 ML IVPB SCH (14:30)
[2018-06-28] MEDS ORDERED: Vancomycin HCl 250 MG in Sodium Chloride 0.9% 100 ML IVPB SCH (14:30)
[2018-06-28] MEDS ORDERED: Vancomycin Sliding Scale 1 EACH FS ONE (14:30)
[2018-06-28] MEDS ORDERED: Vancomycin HCl 1 GM in Premix Bag 1 BAG IVPB SCH (14:30)
[2018-06-28] MEDS ORDERED: HOLD VANCOMYCIN FOR LEVEL >20 FS SCH (14:30)
[2018-06-28] MEDS ORDERED: Vancomycin HCl 500 MG in Sodium Chloride 0.9% 100 ML IVPB SCH (14:30)
[2018-06-28] MEDS ORDERED: Potassium Chloride 20 MEQ TAB PO SCH (15:30)
--- NOTE | 2018-06-28 18:57 | PRG ---
DATE OF SERVICE: 06/28/2018 SERVICE: Pulmonary Medicine. INTERVAL HISTORY: The patient is doing okay from respiratory standpoint. Breathing comfortably. Otherwise, there has been no interval change to her condition. Her mentation has improved dramatically. She now attends, and follow some simple commands. She can comfortably move her left upper and lower extremity. Her right upper and lower extremity really are working very well. PHYSICAL EXAMINATION: VITAL SIGNS: Afebrile, pulse 100, blood pressure 107/61, respirations 20, and saturation 98% on 2 L nasal cannula. GENERAL: The patient is awake and alert, in no apparent distress. LUNGS: Decent air entry. No prolonged expiratory phase. No crackles or wheezing appreciated. Rhonchi are noted. HEART: Normal rate. Regular. ABDOMEN: Soft, nontender, and nondistended. Bowel sounds are positive. MUSCULOSKELETAL: No cyanosis or clubbing. There is no pitting in the bilateral lower extremities. NEUROLOGIC: She is still not moving the right upper extremity and right lower extremity. That being said, pupils are equal, round, and reactive. There is still a little enlarged. She is moving her left upper and lower extremity to command. She is not moving the right upper and lower extremity yet. LABORATORY DATA: WBC 15.5, hemoglobin 11.5, and platelets 202,000. ESR 49. Ammonia 16. CRP 7.34, which is significantly elevated. Procalcitonin 0.89. Creatinine 1.67 and gently downtrending, BUN 39. Potassium 3.1. Magnesium 1.6 and phosphorus 2.6. IMAGING: MRI of the brain demonstrates no acute intracranial abnormality. ASSESSMENT: 1. Encephalopathy, improving. 2. Systemic inflammatory response syndrome, improving. 3. Healthcare-associated pneumonia secondary to aspiration. 4. Major depressive disorder. 5. Oropharyngeal dysphagia. DISCUSSION AND PLAN: It appears that the patient is improving dramatically from a neurologic perspective. This was likely a side effect of the baclofen. Since she is improving, no LP needs to be performed. I will replace magnesium and potassium today. Pulmonary/Critical Care will continue to follow along. Dr. Roman will resume coverage in the morning. Job ID: [id number]
[2018-06-29] MEDS: Piperacillin/Tazobactam 3.375 GM in Sodium Chloride 0.9% 100 ML IVPB SCH (06:02)
[2018-06-29] MEDS: Levothyroxine Sodium 25 MCG TAB PO SCH (06:03)
[2018-06-29] MEDS: Insulin Regular 300 UNITS/3 ML VIAL SC PRN ×2 (06:05→12:26)
[2018-06-29 08:04] LABS: #Basophils 0.1 thou/uL (0.0-0.2); #Eosinphils 0.4 thou/uL (0.0-0.7); #Monocytes 0.8 thou/uL (0.11-0.59); #Neutrophils 7.1 thou/uL (1.40-6.50); %Basophils 0.7 % (0.0-1.0); %Eosinophils 3.6 % (0.0-10.0); %Lymphocytes 19.4 % (21.0-51.0); %Monocytes 7.5 % (0.0-10.0); %Neutrophils 68.8 % (42.0-75.0); Hemoglobin 9.2 g/dL (12.0-16.0); Mean Corpuscular HGB CONC 31.9 g/dL (32.0-36.0); Mean Corpuscular Hemoglobin 30.9 pg (27.0-31.0); Mean Corpuscular Volume 96.9 fL (78.0-98.0); Mean Platelet Volume 11.5 fL (7.4-10.4); Platelet Count 210 thou/uL (130-400); RBC Distribution Width 14.1 % (11.5-14.5); Red Blood Cell (RBC) Count 2.97 mill/uL (4.20-5.40); White Blood Cell (WBC) Count 10.3 thou/uL (4.8-10.8)
[2018-06-29 08:24] LABS: Anion Gap 15 mmol/L (10-20); BUN (Urea Nitrogen) 29 mg/dL (9.8-20.1); Calc. Creatinine Clearance 32 mL/min (70-130); Calcium 8.3 mg/dL (7.8-10.44); Carbon Dioxide 18 mmol/L (23-31); Chloride 112 mmol/L (98-107); Estimated GFR-MDRD 42; Glucose 216 mg/dL (80-115); Magnesium 1.8 mg/dL (1.6-2.6); Potassium 3.5 mmol/L (3.5-5.1); Sodium 141 mmol/L (136-145)
[2018-06-29] MEDS: Cefepime 1 GM in Sodium Chloride 0.9% 100 ML IVPB SCH (09:01)
[2018-06-29] MEDS: Pantoprazole 40 MG GRANULES PACKET PER TUBE SCH (09:01)
[2018-06-29] MEDS: Multivit, Therapeutic 1 TAB PO SCH (09:01)
[2018-06-29] MEDS: Aspirin Chewable 81 MG TAB PER TUBE SCH (09:01)
[2018-06-29] MEDS: Enoxaparin Sodium 30 MG/0.3 ML SYRINGE SC SCH (09:03)
[2018-06-29] MEDS: FLUoxetine HCl 20 MG/5 ML UDCUP PER TUBE SCH ×2 (09:10→21:07)
--- NOTE | 2018-06-29 10:15 | PRG ---
DATE OF SERVICE: 06/29/2018 SUBJECTIVE: This morning, more responsive. OBJECTIVE: VITAL SIGNS: Sats are 97% on 2 L, respiratory rate 16, temperature 97, blood pressure 109/69. CHEST: Decreased breath sounds. No wheezing. CARDIAC: Normal S1, S2. No gallops. ABDOMEN: No masses. LABORATORY DATA: Creatinine 1.28. White count 10,000. ASSESSMENT: Recurrent aspiration, dysphagia. PLAN: She is on multiple antibiotics. I would deescalate antibiotics. All cultures are negative. Eventually placement. Job ID: [id number]
--- NOTE | 2018-06-29 10:46 | PDOC.PN ---
- Subjective Encounter Start Date: 06/29/18 Encounter Start Time: 10:45 Subjective: calm, alert - Objective Resuscitation Status - Order Detail: 06/27/18 18:10 Resuscitation Status Routine Resuscitation Status: DNAR: NO Resuscitation Discussed with: Patient's son and LINCOLN CROWE Reviewed: Yes Vital Signs & Weight: Vital Signs (12 hours) Temp Pulse Resp BP Pulse Ox 06/29/18 08:00 97.5 F L 99 16 109/69 97 06/29/18 07:58 100 20 97 06/28/18 23:16 101 H 20 96 Weight Admit Weight 106 lb 4.8 oz Weight 106 lb 4.8 oz Most Recent Monitor Data Heart Rate from ECG 83 NIBP 98/55 NIBP BP-Mean 69 Respiration from ECG 13 SpO2 86 I&O: 06/28/18 06/29/18 06/30/18 06:59 06:59 06:59 Intake Total 0 2039 Output Total 2 Balance 1849 2037 Result Diagrams: 06/29/18 07:28 06/29/18 07:28 Additional Labs: Accuchecks 06/29/18 06/28/18 06/28/18 05:44 21:06 15:57 POC Glucose 201 H 96 316 H 06/28/18 11:35 POC Glucose 253 H Phys Exam - Physical Examination Neck: no JVD Respiratory: clear to auscultation bilateral Cardiovascular: RRR, no significant murmur Gastrointestinal: soft, positive bowel sounds Musculoskeletal: no edema R spastic hemiplegia Dx/Plan (1) Metabolic encephalopathy Code(s): G93.41 - METABOLIC ENCEPHALOPATHY Status: Resolved (2) Pneumonia Code(s): J18.9 - PNEUMONIA, UNSPECIFIED ORGANISM Status: Acute Qualifiers: Pneumonia type: aspiration pneumonia Comment: CT appeared to show some potential progression. Back on IV abx. (3) Oropharyngeal dysphagia Code(s): R13.12 - DYSPHAGIA, OROPHARYNGEAL PHASE Status: Chronic Comment: s/ p PEG tube (4) Septic shock Code(s): A41.9 - SEPSIS, UNSPECIFIED ORGANISM; R65.21 - SEVERE SEPSIS WITH SEPTIC SHOCK Status: Resolved (5) Acute respiratory failure with hypoxia Code(s): J96.01 - ACUTE RESPIRATORY FAILURE WITH HYPOXIA Status: Acute (6) Aspiration pneumonia Code(s): J69.0 - PNEUMONITIS DUE TO INHALATION OF FOOD AND VOMIT Status: Acute Qualifiers: Aspiration pneumonia type: due to regurgitated food Laterality: unspecified laterality Lung location: unspecified part of lung Qualified Code(s): J69.0 - Pneumonitis due to inhalation of food and vomit (7) CKD (chronic kidney disease) stage 3, GFR 30-59 ml/min Code(s): N18.3 - CHRONIC KIDNEY DISEASE, STAGE 3 (MODERATE) Status: Chronic - Plan deescalate iv antibx to omnicef -: cont tube feedings * .
[2018-06-29] MEDS: Cefdinir 300 MG CAP PER TUBE SCH (12:25)
[2018-06-29 15:44] LABS: Vancomycin, Random 23.4 ug/mL (See Comment)
[2018-06-29] MEDS ORDERED: Cefdinir 300 MG CAP PO SCH (21:00)
[2018-06-30] MEDS: Levothyroxine Sodium 25 MCG TAB PO SCH (05:51)
[2018-06-30 06:42] LABS: #Basophils 0.1 thou/uL (0.0-0.2); #Eosinphils 0.3 thou/uL (0.0-0.7); #Monocytes 0.7 thou/uL (0.11-0.59); #Neutrophils 7.2 thou/uL (1.40-6.50); %Basophils 0.5 % (0.0-1.0); %Eosinophils 2.9 % (0.0-10.0); %Lymphocytes 19.3 % (21.0-51.0); %Monocytes 6.5 % (0.0-10.0); %Neutrophils 70.8 % (42.0-75.0); Hemoglobin 9.8 g/dL (12.0-16.0); Mean Corpuscular Hemoglobin 31.4 pg (27.0-31.0); Mean Platelet Volume 10.9 fL (7.4-10.4); Platelet Count 271 thou/uL (130-400); RBC Distribution Width 14.6 % (11.5-14.5); Red Blood Cell (RBC) Count 3.12 mill/uL (4.20-5.40); White Blood Cell (WBC) Count 10.2 thou/uL (4.8-10.8)
[2018-06-30 07:16] LABS: Anion Gap 13 mmol/L (10-20); BUN (Urea Nitrogen) 24 mg/dL (9.8-20.1); Calc. Creatinine Clearance 38 mL/min (70-130); Calcium 8.5 mg/dL (7.8-10.44); Carbon Dioxide 20 mmol/L (23-31); Chloride 112 mmol/L (98-107); Estimated GFR-MDRD 50; Glucose 238 mg/dL (80-115); Magnesium 1.8 mg/dL (1.6-2.6); Potassium 3.7 mmol/L (3.5-5.1); Sodium 141 mmol/L (136-145)
[2018-06-30 07:29] LABS: Phosphorus 2.7 mg/dL (2.3-4.7)
[2018-06-30] MEDS: FLUoxetine HCl 20 MG/5 ML UDCUP PER TUBE SCH (09:00)
[2018-06-30] MEDS: Aspirin Chewable 81 MG TAB PER TUBE SCH (09:01)
[2018-06-30] MEDS: Pantoprazole 40 MG GRANULES PACKET PER TUBE SCH (09:01)
[2018-06-30] MEDS: Multivit, Therapeutic 1 TAB PO SCH (09:02)
[2018-06-30] MEDS: Enoxaparin Sodium 30 MG/0.3 ML SYRINGE SC SCH (09:03)
--- NOTE | 2018-06-30 09:17 | PRG ---
DATE OF SERVICE: 06/30/2018 SUBJECTIVE: This morning, she is at her baseline, awake, alert, responsive, and in no distress. OBJECTIVE: VITAL SIGNS: Saturations are 100%, respiratory rate 16, temperature 97, and blood pressure 133/73. CHEST: Recurrent aspiration and pneumonia. LABORATORY DATA: White count is back to normal at 10,000. H and H unremarkable. ASSESSMENT: Recurrent aspiration and dysphagia, status post percutaneous endoscopic gastrostomy. DISPOSITION: halfway placement. She is a DNR. Job ID: [id number]
[2018-06-30] MEDS: Cefdinir 300 MG CAP PER TUBE SCH (11:39)
--- NOTE | 2018-06-30 14:01 | DIS ---
DATE OF ADMISSION: 06/17/2018 DATE OF DISCHARGE: 06/30/2018 DISCHARGE DISPOSITION: [facility]. PRIMARY CARE PROVIDER: Meet Ness M.D. FINAL DIAGNOSES: 1. Pneumonia. 2. Metabolic encephalopathy. 3. Dysphagia requiring a percutaneous endoscopic gastrostomy. 4. Chronic kidney disease, stage 3. 5. Acute kidney injury superimposed on chronic kidney disease, stage 3. 6. Hypothyroidism. 7. Sepsis syndrome with hypotension. DISCHARGE MEDICATIONS: 1. Lasix 20 mg daily. 2. DuoNeb 3 mL q.6 hours. 3. Aspirin 81 mg daily. 4. Fluoxetine 40 mg per tube in the morning, 20 at night. 5. Levothyroxine 25 mcg per tube daily. 6. Metoprolol 25 mcg per tube daily. 7. Pancrelipase per protocol. 8. Lasix 20 mg per tube daily. 9. Levothyroxine 25 mcg per tube daily. 10. Megace 10 mg per tube daily. 11. Polyethylene glycol 17 g in water p.r.n. daily. 12. Protonix 40 mg daily. 13. Zocor 10 mg daily. ALLERGIES: BACTRIM/SULFA. DIET: Tube feeding. CODE STATUS: DNR, pending at the time of discharge. HOSPITAL COURSE: The patient admitted to [facility] with pneumonia, sepsis associated with hypotension, acute kidney injury on chronic kidney disease, stage 3, diabetes mellitus type 2, uncontrolled, hypothyroidism, dyslipidemia. The patient was placed on IV antibiotics. She was transiently started on Levophed, [place] [id number]. Blood gas showed a low CO2 of 26.9, low O2 of 56.3, pH of 7.4, hemoglobin was 12+/-. Her initial creatinine was 2.73, BUN 72, blood sugars were elevated, 500 to 300. Cortisol was 17. She was treated aggressively with IV antibiotics, nebulizer treatments. She was seen in consultation by Dr. Emerson Roman. She was weaned off the Levophed rapidly. She was seen in consultation by Dr. Bimal Mcclure for nephrology, who recommended fluid and electrolyte replacement. She was seen in consultation on 06/19/[address] Lei Lee, for PEG tube placement. PEG was placed on 06/20/[address] Lei Lee. The patient's renal function during her hospital stay improved steadily to a creatinine of 1.1, with a BUN of 24. Her blood sugars stabilized between 100 and 200. Her white cell count came down rapidly after being tapered off steroids, it is now 10.2. On 06/22/2018, she was transitioned to p.o. antibiotics and continued on nebulizer therapies as needed. On 06/26, she developed severe encephalopathy, it was felt secondary to baclofen. Baclofen was discontinued and her mental status improved. She is currently being transferred back to the [facility] under the care of Dr. Meet Ness. She will need follow up there in 7-10 days. At this time, her chest is clear. Heart is regular rate and rhythm. Vital signs are stable. She is in no distress. Job ID: [id number]
--- NOTE | 2018-06-30 16:25 | PRG ---
DATE OF SERVICE: 06/30/2018 SUBJECTIVE: Ms. Anguiano is much more alert. She establishes eye contact and is oriented. Follows commands. She is able to move her extremities now. OBJECTIVE: VITAL SIGNS: She has been afebrile. T-max 100.4 two days ago. GENERAL: Awake and alert. Cachexia. LUNGS: Symmetric air entry. HEART: S1 and S2. Regular rate. EXTREMITIES: Moves upper extremities and lower extremities. LABORATORY DATA: White cell count 10.2, hemoglobin 9.8, and platelets 271. Sodium 141, creatinine 1.1. Cultures are negative. MRI did not show any hemorrhages or brainstem CVA or posterior fossa CVA. ASSESSMENT AND DISCUSSION: Prior cerebrovascular accident with right hemiparesis admissions with confusional state and pneumonia, possible aspiration and now progression to unresponsiveness with resolution after discontinuation of baclofen. As Dr. Chapman has pointed out, it is likely that the changes noticed in my initial visit were due to baclofen associated toxicity, which has been described in the literature. Job ID: [id number]
[2018-06-30 17:24] VITALS: BP 136/75; TEMP 98.5
[2018-06-30] MEDS: Insulin Regular 300 UNITS/3 ML VIAL SC PRN (17:29)
== END 2018-06-30 17:49 | DRG 871 ==
LOC: ERS 01:33 → ERHOLD 03:21 → CCU 06:34 → 2NO 16:24 → T4-B 06-21 11:05
PROVIDERS: ADMIT Hospitalist; ATTEND Hospitalist
PROC: 3E033XZ Introduction of Vasopressor into Peripheral Vein, Percutaneous Approach (ICD-10-PCS; principal; 2018-06-17)
PROC: 0DH63UZ Insertion of Feeding Device into Stomach, Percutaneous Approach (ICD-10-PCS; 2018-06-20)
DX: A41.9 Sepsis, unspecified organism (principal); R65.21 Severe sepsis with septic shock; J96.01 Acute respiratory failure with hypoxia; J69.0 Pneumonitis due to inhalation of food and vomit; G93.41 Metabolic encephalopathy; E43 Unspecified severe protein-calorie malnutrition; N17.9 Acute kidney failure, unspecified; E87.2 Acidosis; E87.0 Hyperosmolality and hypernatremia; J44.0 Chronic obstructive pulmonary disease with (acute) lower respiratory infection; I69.351 Hemiplegia and hemiparesis following cerebral infarction affecting right dominant side; T42.8X5A Adverse effect of antiparkinsonism drugs and other central muscle-tone depressants, initial encounter; N18.3 Chronic kidney disease, stage 3 (moderate); I69.391 Dysphagia following cerebral infarction; R13.12 Dysphagia, oropharyngeal phase; I12.9 Hypertensive chronic kidney disease with stage 1 through stage 4 chronic kidney disease, or unspecified chronic kidney disease; E11.22 Type 2 diabetes mellitus with diabetic chronic kidney disease; E11.65 Type 2 diabetes mellitus with hyperglycemia; D63.1 Anemia in chronic kidney disease; E86.0 Dehydration; E87.6 Hypokalemia; E03.9 Hypothyroidism, unspecified; G25.81 Restless legs syndrome; F41.8 Other specified anxiety disorders; K21.9 Gastro-esophageal reflux disease without esophagitis; Z87.891 Personal history of nicotine dependence; Z66 Do not resuscitate; Z68.20 Body mass index [BMI] 20.0-20.9, adult; Z88.2 Allergy status to sulfonamides
CPT/HCPCS: 36415; 36416; 36556; 51701; 70450; 70551; 71045; 71250; 74176; 80048; 80053; 80202; 81001; 81003; 82010; 82140; 82533; 82607; 82805; 83605; 83690; 83735; 84100; 84145; 85025; 85610; 85652; 86140; 87040; 87086; 93005; 93010; 94640; 96365; 96375; A4353; J0692; J1630; J1650; J1815; J1825; J1885; J2250; J2270; J2405; J2543; J2704; J3370; J3480; J7050; J7620; P9047

== ENCOUNTER 2018-09-02 21:29 | Inpatient (IN) | payer MEDICARE, MEDICAID ==
[2018-09-02] MEDS ORDERED: Acetaminophen 325 MG TAB ONE (22:06)
[2018-09-02] MEDS ORDERED: Acetaminophen 650 MG Suppository ONE (22:12)
[2018-09-02 22:27] LABS: #Basophils 0.1 thou/uL (0.0-0.2); #Eosinphils 0.2 thou/uL (0.0-0.7); #Lymphocytes 2.2 thou/uL (1.20-3.40); #Monocytes 1.4 thou/uL (0.11-0.59); #Neutrophils 12.3 thou/uL (1.40-6.50); %Basophils 0.4 % (0.0-1.0); %Eosinophils 1.2 % (0.0-10.0); %Lymphocytes 13.4 % (21.0-51.0); %Monocytes 8.4 % (0.0-10.0); %Neutrophils 76.6 % (42.0-75.0); Hemoglobin 12.2 g/dL (12.0-16.0); Mean Corpuscular HGB CONC 32.7 g/dL (32.0-36.0); Mean Corpuscular Hemoglobin 30.7 pg (27.0-31.0); Mean Corpuscular Volume 93.8 fL (78.0-98.0); Mean Platelet Volume 9.1 fL (7.4-10.4); Platelet Count 234 thou/uL (130-400); RBC Distribution Width 14.2 % (11.5-14.5); Red Blood Cell (RBC) Count 3.99 mill/uL (4.20-5.40)
[2018-09-02 22:47] LABS: ALT (SGPT) 26 U/L (8-55); AST (SGOT) 29 U/L (5-34); Albumin 2.8 g/dL (3.4-4.8); Alkaline Phosphatase 303 U/L (40-150); Anion Gap 16 mmol/L (10-20); BUN (Urea Nitrogen) 43 mg/dL (9.8-20.1); Bilirubin, Total 0.7 mg/dL (0.2-1.2); Calc. Creatinine Clearance 0 mL/min (70-130); Calcium 11.1 mg/dL (7.8-10.44); Carbon Dioxide 24 mmol/L (23-31); Chloride 96 mmol/L (98-107); Estimated GFR-MDRD 40; Globulin 3.6 g/dL (2.4-3.5); Glucose 132 mg/dL (80-115); Potassium 3.5 mmol/L (3.5-5.1); Protein, Total 6.4 g/dL (6.0-8.3); Sodium 132 mmol/L (136-145)
--- NOTE | 2018-09-02 22:57 | RAD ---
XR Chest 1 View Portable History: [Fever] Comparison: Radiograph June 27, 2018 Findings: Multifocal airspace opacities throughout the lungs predominantly involving right upper, mid dle, and right lower lobe as well as the left lower lobe. No pneumothorax. Small right effusion. Impression: Multifocal bronchopneumonia.
[2018-09-02] MEDS ORDERED: Piperacillin/Tazobactam 3.375 GM VIAL ONE (23:11)
[2018-09-02] MEDS ORDERED: Vancomycin HCl 750 MG in Sodium Chloride 0.9% 250 ML 250 ML IVPB SCH (23:30)
[2018-09-03 01:34] LABS: Troponin I Less than 0.010 ng/mL (< 0.028)
[2018-09-03] MEDS ORDERED: Acetaminophen 325 MG TAB PO PRN (04:33)
[2018-09-03] MEDS ORDERED: Ondansetron ODT 4 MG TAB PO PRN (04:33)
[2018-09-03] MEDS ORDERED: Ondansetron PF 4 MG/2 ML Vial IVP PRN (04:33)
[2018-09-03 05:08] LABS: Troponin I 0.021 ng/mL (< 0.028)
--- NOTE | 2018-09-03 05:57 | HP ---
PRIMARY CARE PHYSICIAN: Meet Ness MD CODE STATUS: Full code. TIME OF EVALUATION: 4:20 a.m. CHIEF COMPLAINT: Cough. HISTORY OF PRESENT ILLNESS: A 68-year-old female patient with past medical history of renal failure, restless legs syndrome, hypertension, CVA with right-sided weakness, CKD, CHF, dysphagia, status post PEG tube placement, came to the hospital after having problems with a PEG tube. As per fdc, the patient has pulled it out. The patient presented to the ER after having fever, being tachycardic. She was found to have pneumonia and is receiving antibiotic treatment for that. The patient also has significant cough, symptoms are severe. No clear triggers. No alleviating factors. Could be aspiration from PEG tube malfunction or could be also just healthcare-associated pneumonia. REVIEW OF SYSTEMS: Unable to obtain. The patient has dementia, so the history is not accurate from her. PAST MEDICAL HISTORY: As mentioned in the HPI. PAST SURGICAL HISTORY: Cholecystectomy, x4, hysterectomy, orthopedic surgery of the right femur. PSYCHIATRIC HISTORY: Includes anxiety, depression, and anorexia. SOCIAL HISTORY: No alcohol. No drugs. No smoking history. KNOWN ALLERGIES: Bactrim and trimethoprim. REPORTED MEDICATIONS: 1. Lorazepam. 2. Morphine. 3. Tramadol. 4. Augmentin. 5. Zofran. 6. Levsin. 7. Tylenol. 8. Melatonin. PHYSICAL EXAMINATION: VITAL SIGNS: On presentation, blood pressure 111/54, with heart rate of 110, respiratory rate was 14, temperature 99.4. Pain was unable to rate. Oxygen saturation was 93% on 4 L oxygen. Then, fever came up to 101.3 during admission. GENERAL APPEARANCE: The patient is alert, disoriented, not in acute distress. HEENT: Eyes, normal conjunctivae. Dry oral mucosa. Anicteric. No JVD. RESPIRATORY: The patient has bilateral rales, worsened with cough. Scattered rhonchi. No wheezing. Symmetric expansion. The patient is on nasal cannula 4 L. CARDIOVASCULAR: The patient is tachy, regular rhythm. No murmurs. No gallop. No edema. ABDOMEN: Soft. Normal bowel sounds. The patient has a PEG tube that has been replaced. MUSCULOSKELETAL: Baseline range of motion and strength. No tenderness. SKIN: Warm, intact. No pallor. No rash. No redness. Peripheral pulses are present. Capillary refill seems to be intact. NEUROLOGIC: No evidence of any new focal weakness. Baseline speech. Cranial nerves seems to be intact. PSYCHIATRIC: The patient is in good mood. No anxiety. Optimal judgment. DIAGNOSTIC STUDIES: EKG was reviewed, the patient has sinus tachy. Chest x-ray was reviewed, the patient has multifocal bronchopneumonia. LABORATORY DATA: Labs were reviewed. The patient has white count of 16, hemoglobin 12.2, platelet count 234. Chemistry; sodium 132, potassium 3.5, chloride 96, carbon dioxide 24, anion gap 16, BUN 43, creatinine 1.32, GFR 40, glucose 132. Lactic acid 1.1. Calcium 11.1, total bilirubin 0.7. AST and LFTs were normal. Alkaline phosphatase 303. Troponin was negative x3. Beta natriuretic peptide was 250. Albumin 2.8, globulin 3.6, albumin/globulin ratio is 0.8. ASSESSMENT AND PLAN: The patient will be placed in the hospital with following medical problems: 1. Sepsis. The patient has tachycardia, fever, leukocytosis. Source is multilobar pneumonia. The patient will be started on broad-spectrum antibiotics. It could be from aspiration from PEG tube malfunction and also healthcare-associated pneumonia. We will follow cultures. We will adjust treatment as per sensitivity. 2. Hyponatremia, sodium 132. The patient's sodium will be monitored, it is mild, no need for any acute intervention at this point. The patient has mild increase in creatinine of 1.32. We will continue to monitor, this is chronic kidney disease stage 3. 3. Controlled hypertension. We will continue to monitor. We will reconcile home medications. We will not treat aggressively since the patient has sepsis. 4. Hypothyroidism, reconcile home medications. Continue hormone replacement. 5. History of dysphagia and PEG tube malfunction. These have been fixed at this point. 6. Reportedly history of diastolic dysfunction, grade 2/3. We will not treat aggressively with fluids. We will continue to monitor. The patient is septic. We will need to find the right one, so clue is two conditions, congestive heart failure and sepsis. 7. Deep venous thrombosis prophylaxis. Job ID: [id number]
--- NOTE | 2018-09-03 06:09 | PDOC.EVN ---
Event Note - Event Note Event Note: pt has an out of hospital dnr, not verified yet, needs clarification with poa
[2018-09-03] MEDS ORDERED: Piperacillin/Tazobactam 3.375 GM VIAL ONE (07:25)
[2018-09-03] MEDS: Piperacillin/Tazobactam 4.5 GM in Sodium Chloride 0.9% 100 ML IVPB SCH ×2 (07:31→14:40)
[2018-09-03] MEDS ORDERED: Enoxaparin Sodium 40 MG/0.4 ML SYRINGE SC SCH (09:00)
[2018-09-03] MEDS ORDERED: Enoxaparin Sodium 40 MG/0.4 ML SYRINGE ONE (10:29)
--- NOTE | 2018-09-03 10:57 | PRG ---
DATE OF SERVICE: 09/03/2018 SUBJECTIVE: The patient is seen and examined at the bedside. She has a mask for oxygen supplementation. She seems to be somewhat agitated. OBJECTIVE: VITAL SIGNS: Blood pressure is 117/57, pulse is 103, respiratory rate is 30, and pulse oximetry is 97%. HEENT: Her sclerae are nonicteric. She looks emaciated and sick. Oral mucosa is somewhat dry. NECK: Supple. LUNGS: Bilateral rales and crackles present with wheezes. HEART: S1 and S2 normal. No S3. No S4. ABDOMEN: Soft, nontender, nondistended. EXTREMITIES: No clubbing, cyanosis, or edema. NEUROLOGIC: She follows my commands. She moves her all 4 extremities. She is alert and oriented x2. SKIN: No rash or erythema. LABORATORY DATA: Labs showed troponin I 0.010 and 0.021. No CBC this morning. Microbiology; blood cultures x2 negative. Influenza type A and B derived. EIA negative. IMPRESSION: 1. Sepsis. 2. Hyponatremia. 3. Bronchopneumonia. 4. Status post percutaneous endoscopic gastrostomy tube removal by the patient. 5. History of pneumonia. 6. History of metabolic encephalopathy. 7. Dysphagia, requiring percutaneous endoscopic gastrostomy. 8. Chronic kidney disease, stage 3. 9. Hypothyroidism. 10. History of sepsis syndrome with hypotension. DISCUSSION: The case was discussed with Susan, the family member. We confirmed that the patient is going to be do not attempt resuscitation in the hospital. I updated her on her status. She is okay to admit to the hospital for pneumonia treatment. The patient is getting IV vancomycin and IV Zosyn. We will continue those 2 antibiotics. We will start her on DuoNeb. We will continue her mask and O2 supplementation. She is going to be transferred to [facility]. Job ID: [id number]
[2018-09-03 12:51] VITALS: BMI 20.2
--- NOTE | 2018-09-03 12:54 | CON ---
DATE OF CONSULTATION: HISTORY OF PRESENT ILLNESS: Tasneem Anguiano is a 68-year-old patient under the care of hospice, DNR, presented with PEG removed. X-ray shows a right-sided infiltrate and a small infiltrate in the left base. She came from the ER to the MICU. Awake, alert, and responsive. Denies any cough. Denies any chest pain. She was just discharged from the hospital on 06/30/2018 with a discharge diagnoses of pneumonia, encephalopathy, PEG, renal failure, hypothyroidism, sepsis syndrome, DNR. She was at the [facility]. PAST MEDICAL HISTORY: Outlined in multiple medical records, which includes severe deconditioning, pretty much bedridden, dysphagia, renal failure, hypothyroidism, CVA, and restless leg. PAST SURGICAL HISTORY: 1. Right femur. 2. Cholecystectomy. 3. C section. 4. PEG. MEDICATIONS: Medicine from the [facility] a very long list pertinent for Prozac 40 mg a day, Lasix 20 a day, nebulizer, Synthroid 25, Toprol-XL 25, Protonix, Zocor 10, lamotrigine 100. ALLERGIES: BACTRIM, SULFA. REVIEW OF SYSTEMS: Difficult to obtain, but she is awake, alert, and responsive. Denies any pain. Denies any discomfort. I switched over to nasal O2 3L sats are 98%, pulse 83, blood pressure 130/75. CHEST: Bilateral rhonchi and crackles. CARDIAC: Normal S1, S2. no gallops LABORATORY DATA: Creatinine 1.32. BNP is 250. White count is 16,000. X-rays noted infiltrate, right middle, right lower lobe, left base. IMPRESSION: Dysphagia, advanced age, dementia, depression, renal failure, aspiration pneumonia. PLAN: She is in the hospice DNR in the [facility]. I will continue with the same orders. She was started on antibiotics. She will continue. Pulmonary will follow while in the MICU. Job ID: [id number] MTDD
[2018-09-03 14:54] VITALS: TEMP 97.7
[2018-09-04] MEDS ORDERED: Vancomycin HCl 750 MG in Sodium Chloride 0.9% 250 ML 250 ML IVPB SCH (02:00)
--- NOTE | 2018-09-04 04:53 | DIS ---
DATE OF ADMISSION: 09/02/2018 DATE OF DISCHARGE: 09/03/2018 FINAL DIAGNOSES: 1. Sepsis. 2. Aspiration pneumonia. 3. Placement of the PEG tube per patient. 4. Dementia. 5. Depression. 6. Renal failure. CONSULTANTS: Dr. Emerson Roman, Pulmonary/Critical Care service. HOSPITAL COURSE: The patient is a 68-year-old female, who was sent to the hospital from inpatient hospice after the patient aspirated and she pulled out the PEG tube. She has a history of renal failure, restless legs syndrome, hypertension, CVA with right-sided weakness, CKD, CHF, dysphagia, and status post PEG tube placement. Apparently, she has been treated for pneumonia with antibiotics and she was hypoxic in the emergency room. At the time of evaluation in the emergency room, her white count was 16,000, hemoglobin 12.2, platelet count 234. Her creatinine was 1.32. Lactic acid was 1.1. BNP was 250. The patient had tachycardia, fever, and leukocytosis, which was suggestive of sepsis and probably multilobar pneumonia. Chest x-ray showed multifocal bronchopneumonia. The patient was placed on IV antibiotic which was Zosyn, placed on mask. She was hypoxic as soon as the oxygen was stopped, so we will continue that treatment. She was given nebulizers. Her blood pressure was running low. Her last blood pressure is 84 systolic. I think, she has severe sepsis from her pneumonia. I met with the family and the family wants to transfer her back to hospice, so we are going to transfer her back and I talked to the hospice nurse that we will continue Augmentin that she was taking at hospice inpatient center, but I do not think she is going to last much since her blood pressure is running low. She is discharged with comfort measures. Job ID: [id number]
== END 2018-09-03 17:26 | disposition hospice, inpatient (51) | DRG 871 ==
LOC: ERS 21:29 → ERHOLD 23:30 → IMCU/EMU 09-03 10:49
PROVIDERS: ADMIT Hospitalist; ATTEND Hospitalist
DX: A41.9 Sepsis, unspecified organism (principal); J18.0 Bronchopneumonia, unspecified organism; E87.1 Hypo-osmolality and hyponatremia; E03.9 Hypothyroidism, unspecified; Z66 Do not resuscitate; Z51.5 Encounter for palliative care; F03.90 Unspecified dementia, unspecified severity, without behavioral disturbance, psychotic disturbance, mood disturbance, and anxiety; F41.9 Anxiety disorder, unspecified; I12.9 Hypertensive chronic kidney disease with stage 1 through stage 4 chronic kidney disease, or unspecified chronic kidney disease; F32.9 Major depressive disorder, single episode, unspecified; N18.3 Chronic kidney disease, stage 3 (moderate); Z90.49 Acquired absence of other specified parts of digestive tract; Z90.710 Acquired absence of both cervix and uterus; Z88.1 Allergy status to other antibiotic agents; Z88.2 Allergy status to sulfonamides
CPT/HCPCS: 36415; 71045; 80053; 83605; 83880; 84484; 85025; 87040; 87149; 87804; 93005; 94640; A4353; J1650; J1956; J2543; J3370; J3490; J7050; J7620